=== PATIENT | female | born 1950 | race Caucasian/White ===

== ENCOUNTER 2017-05-02 11:06 | Inpatient (IN) | payer MEDICARE, MEDICAID ==
[~2017-05-02] VITALS: Ht 170.2 cm; Wt 74.1 kg
[2017-05-02] VITALS (11 sets, daily range): BP systolic 111–146; BP diastolic 52–110; PULSE 90–127; RESP 20–32; TEMP 98.1–99.2; O2SAT 90–98
[~2017-05-02 11:06] MED LIST: ADVA250A INH; ALBUAER3 INH; DEPA500T3 PO; ECOT325T PO; ETOD200 PO; FLUT50SP EACH NARE; LEVO50TA4 PO; OMEP20TA93 PO; PALI156P IM; SERT100 PO; SIMV40 PO; TAB-TAB PO
[2017-05-02] MEDS ORDERED: IOHEXOL 350 MG/ML 10 ML VIAL (for RAD DIAG) IVCONTRAST ONE (11:07)
[2017-05-02] MEDS ORDERED: ZOLO100T PO (11:31)
[2017-05-02] MEDS ORDERED: MULTTAB67 PO (11:31)
[2017-05-02] MEDS ORDERED: DEPA500T3 PO (11:31)
[2017-05-02] MEDS ORDERED: ASPI-183 PO (11:31)
[2017-05-02] MEDS ORDERED: SIMV40TA PO (11:31)
[2017-05-02] MEDS ORDERED: SODIUM CHLOR 0.9% 1000 ML INJ 1,000 ML IV SCH (12:00)
[2017-05-02] MEDS ORDERED: SODIUM CHLORIDE 0.9% FLUSH 10 ML FLUSH IVF PRN (12:00)
[2017-05-02] MEDS ORDERED: SODIUM CHLOR 0.9% 1000 ML INJ 1,000 ML IV ONE (12:00)
[2017-05-02] MEDS ORDERED: RESP: ALBUTEROL 2.5 MG/IPRATROPIUM 0.5 MG NEB (SCH) INH ONE (12:00)
[2017-05-02] MEDS: RESP: ALBUTEROL 2.5 MG/3 ML NEB (SCH) INH ×2 (12:00→17:41)
--- NOTE | 2017-05-02 12:27 | RADRPT ---
EXAM DATE/TIME: 05/02/2017 12:04 [facility] COMPARISON: CHEST SINGLE AP, March 13, 2016, 11:52. INDICATIONS : Cough and short of breath. MEDICAL HISTORY : Cardiovascular disease. SURGICAL HISTORY : None. ENCOUNTER: Initial ACUITY: 4 - 6 days PAIN SCORE: 0/10 LOCATION: Bilateral chest FINDINGS: There is some motion artifact on image which degrades the study. There appears to be at least stable chronic interstitial changes bilaterally when compared to the prior examination. No definite focal ar eas of parenchymal consolidation are demonstrated. The heart size is within normal limits. No definit e pleural effusions. The bony structures appear to be stable. CONCLUSION: Stable interstitial changes are again noted bilaterally. No new or significant changes compared to th e prior study. Rishabh Parham MD on May 02, 2017 at 12:24 Board Certified Radiologist. This report was verified electronically.
[2017-05-02 13:03] LABS: AUTOMATED NEUTROPHIL # 13.7 TH/MM3 (1.8-7.7); BASOPHIL % 0.1 % (0.0-2.0); EOSINOPHIL % 0.1 % (0.0-4.0); HEMATOCRIT 29.7 % (35.0-46.0); HEMOGLOBIN 9.8 GM/DL (11.6-15.3); LYMPH % 3.2 % (9.0-44.0); LYMPHOCYTE # 0.5 TH/MM3 (1.0-4.8); MEAN CELL VOLUME 94.5 FL (80.0-100.0); MEAN CORPUSCULAR HEMOGLOBIN 31.1 PG (27.0-34.0); MEAN PLATELET VOLUME 8.9 FL (7.0-11.0); MONO % 5.2 % (0.0-8.0); MONOCYTE # 0.8 TH/MM3 (0-0.9); NEUT % 91.4 % (16.0-70.0); PLATELET COUNT 248 TH/MM3 (150-450); RED BLOOD COUNT 3.15 MIL/MM3 (4.00-5.30); RED CELL DISTRIBUTION WIDTH 15.8 % (11.6-17.2)
[2017-05-02 13:09] LABS: ALKALINE PHOSPHATASE 133 U/L (45-117); TOTAL BILIRUBIN ADULT 1.5 MG/DL (0.2-1.0); TOTAL PROTEIN 7.6 GM/DL (6.4-8.2); TROPONIN I LESS THAN 0.02 NG/ML (0.02-0.05)
[2017-05-02] MEDS ORDERED: IBUPROFEN 600 MG TAB PO ONE (13:15)
[2017-05-02] MEDS ORDERED: guaiFENesin/DEXTROMETHORPHAN 200 MG/20 MG/10 ML CUP PO ONE ×2 (13:15→22:45)
[2017-05-02 13:39] LABS: BLOOD, URINE NEG (NEG); GLUCOSE,URINE NEG (NEG); HYALINE CAST, URINE 6 /lpf (RARE); KETONE, URINE NEG (NEG); NITRITE,URINE NEG (NEG); PH, URINE 5.5 (5.0-8.5); TRANSITIONAL EPI CELLS, URINE <1 /hpf; URINE COLOR YELLOW (YELLW/STRAW); URINE LEUKOCYTE ESTERASE MOD (NEG)
[2017-05-02 13:44] LABS: BILIRUBIN, URINE NEG (NEG)
[2017-05-02 15:11] LABS: ALBUMIN 2.3 GM/DL (3.4-5.0); ALT (GPT) 67 U/L (10-53); AST (GOT) 60 U/L (15-37); BICARBONATE 28.2 MEQ/L (21.0-32.0); BLOOD UREA NITROGEN 23 MG/DL (7-18); CALCIUM 8.7 MG/DL (8.5-10.1); CHLORIDE 102 MEQ/L (98-107); CREATININE 0.73 MG/DL (0.50-1.00); GLOMERULAR FILTRATION RATE 79 ML/MIN (>89); GLUCOSE,RANDOM 133 MG/DL (74-106); SODIUM (NA) 136 MEQ/L (136-145)
[2017-05-02 15:27] LABS: INTERNATIONAL NORMALIZED RATIO 1.2 RATIO; PROTHROMBIN TIME - PATIENT 11.7 SEC (9.8-11.6)
[2017-05-02 15:34] LABS: D-DIMER 2.01 MG/L FEU (0.00-0.50)
--- NOTE | 2017-05-02 16:09 | PD ---
HPI Chief Complaint: Respiratory Symptoms Time Seen by Provider: 11:52 Travel History International Travel<30 days: No Contact w/Intl Traveler<30days: No Traveled to known affect area: No History of Present Illness HPI This is a 66-year-old female history of CVA, COPD, hyperlipidemia, hepatitis, hypothyroidism, who presents today with fevers chills with associated cough. The patient states that she's had 6 a progression of URI symptoms. She reports fevers with chills. She reports severe dyspnea on exertion. She reports despite using her nebulizers, she is progressively gotten worse. The patient also reports loose stools. He denies any dysuria or frequency or urgency. There is questionable decreased urine output. PFSH Past Medical History Anemia: Yes Asthma: Yes Blood Disorders: No Bipolar Disorder: Yes Anxiety: Yes Depression: Yes Cancer: No Cardiovascular Problems: Yes High Cholesterol: Yes Chemotherapy: No Chest Pain: Yes Congestive Heart Failure: No COPD: Yes Cerebrovascular Accident: Yes Diabetes: No Diminished Hearing: No Endocrine: Yes Gastrointestinal Disorders: Yes (IBS) GERD: Yes Genitourinary: No Headaches: Yes Hepatitis: Yes Hiatal Hernia: Yes Immune Disorder: No Medical other: Yes (TIA; ARTHRITIS) Musculoskeletal: Yes (SCOLIOSIS) Neurologic: Yes Psychiatric: Yes Reproductive: No Respiratory: Yes Immunizations Current: No Myocardial Infarction: Yes Pneumonia: Yes Radiation Therapy: No Thyroid Disease: Yes Tetanus Vaccination: < 5 Years Influenza Vaccination: No Past Surgical History Gynecologic Surgery: Yes (BREAST TUMORS AND CYSTS BILATERAL REMOVED, OVARIAN CYSTS REMOVED) Hysterectomy: Yes Oral Surgery: Yes (TONSILECTOMY) Tonsillectomy: Yes Other Surgery: Yes (HYSTER,TUMORS,CYTS,ETC) Family History Family Myocardial Infarction: Yes Social History Alcohol Use: No Tobacco Use: No Substance Use: No Allergies-Medications (Allergen,Severity, Reaction): Coded Allergies: Sulfa (Sulfonamide Antibiotics) (Unverified Allergy, Severe, Nausea/ Vomiting, 05/02/17) pt. denies amitriptyline (Unverified Allergy, Severe, Rash, 05/02/17) clopidogrel (Unverified Allergy, Severe, BRUISE, 05/02/17) haloperidol (Unverified Allergy, Severe, RASH, 05/02/17) penicillin G (Unverified Allergy, Severe, Swelling, 05/02/17) thiothixene (Unverified Allergy, Severe, Rash, 05/02/17) ragweed pollen (Unverified Allergy, Mild, Sneezing, 05/02/17) Uncoded Allergies: QUINIGLUTE (Allergy, Severe, 03/31/11) Reported Meds & Prescriptions Reported Meds & Active Scripts Active Etodolac 200 Mg Cap 200 Mg PO TID Take with food. Proair Hfa 8.5 GM Inh (Albuterol Sulfate) 90 Mcg/Act Aer 2 Puff INH Q4-6H PRN 108 mcg/actuation Advair Diskus Inh (Fluticasone-Salmeterol Inh) 250-50 Mcg/Blist Aer 1 Puff INH BID Rinse mouth after use. Levothyroxine (Levothyroxine Sodium) 50 Mcg Tab 50 Mcg PO DAILY Reported Depakote ER (Divalproex Sodium) 500 Mg Marilee 1,500 Mg PO HS Zoloft (Sertraline HCl) 100 Mg Tab 100 Mg PO DAILY Simvastatin 40 Mg Tab 40 Mg PO HS Multiple Vitamin 1 Tab 1 Tab PO DAILY Aspirin 325 Mg Tab 325 Mg PO DAILY Invega Sustenna Inj (Paliperidone Palmitate) 156 Mg/Ml Inj 156 Mg IM Q28D Omeprazole 20 Mg Tab 40 Mg PO DAILY Fluticasone Nasal [place] 50 Mcg/Act Naspr 100 Mcg EACH NARE BID 50 mcg/spray Review of Systems Except as stated in HPI: all other systems reviewed are Neg General / Constitutional: Positive: Fever, Chills HENT: Positive: Lightheadedness, Congestion, No: Headaches, Sore Throat, Neck Pain Cardiovascular: No: Chest Pain or Discomfort, Palpitations Respiratory: Positive: Cough (black and brown sputum), Shortness of Breath, Wheezing Gastrointestinal: Positive: Diarrhea, No: Nausea, Vomiting, Abdominal Pain Genitourinary: Positive: Decreased Urinary Output, No: Frequency, Dysuria Musculoskeletal: Positive: Weakness (generalized), No: Pain Skin: No Rash, No Lesions Neurologic: Positive: Weakness (generalized), No: Dizziness, Headache Physical Exam Narrative GENERAL: Elderly ill appearing female in moderate respiratory distress. SKIN: Focused skin assessment warm/dry. HEAD: Atraumatic. Normocephalic. EYES: No scleral icterus. No injection or drainage. ENT: No nasal bleeding or discharge. Mucous membranes pink and moist. NECK: Trachea midline. Supple. CARDIOVASCULAR: Regular rate and rhythm. No murmur appreciated. RESPIRATORY: Coarse rhonchi bilaterally. Rales at the bilateral bases. GASTROINTESTINAL: Abdomen soft, non-tender, nondistended. Hepatic and splenic margins not palpable. MUSCULOSKELETAL: No obvious deformities. No clubbing. No cyanosis. No edema. NEUROLOGICAL: Awake and weak appearing. No obvious cranial nerve deficits. Motor grossly within normal limits. Normal speech. PSYCHIATRIC: Appropriate mood and affect; insight and judgment normal. Data Data Last Documented VS Vital Signs Date Time Temp Pulse Resp B/P (MAP) Pulse Ox O2 Delivery O2 Flow Rate FiO2 05/02/17 18:53 98.1 98 28 111/86 (94) 98 Nasal Cannula 4.00 Orders Orders Complete Blood Count With Diff (05/02/17 11:55) Comprehensive Metabolic Panel (05/02/17 11:55) B-Type Natriuretic Peptide (05/02/17 11:55) D-Dimer (05/02/17 11:55) Act Partial Throm Time (Ptt) (05/02/17 11:55) Prothrombin Time / Inr (Pt) (05/02/17 11:55) Troponin I (05/02/17 11:55) Arterial Blood Gas (Abg) (05/02/17 11:55) Urinalysis - C+S If Indicated (05/02/17 11:55) Influenzae A/B Antigen (05/02/17 11:55) Blood Culture (05/02/17 11:55) Iv Access Insert/Monitor (05/02/17 11:55) Ecg Monitoring (05/02/17 11:55) Oximetry (05/02/17 11:55) Oxygen Administration (05/02/17 11:55) Chest, Single Ap (05/02/17 11:55) Sodium Chloride 0.9% Flush (Ns Flush) (05/02/17 12:00) Albuterol-Ipratropium Neb (Duoneb Neb) (05/02/17 12:00) Albuterol Neb (Albuterol Neb) (05/02/17 12:00) Lactic Acid Sepsis Protocol (05/02/17 11:55) Sodium Chlor 0.9% 1000 Ml Inj (Ns 1000 M (05/02/17 12:00) Sodium Chlor 0.9% 1000 Ml Inj (Ns 1000 M (05/02/17 12:00) Guaifen-Dm 200-20 Mg/10 Ml Liq (Robituss (05/02/17 13:15) Ibuprofen (Motrin) (05/02/17 13:15) Electrocardiogram (05/02/17 11:18) Ct Pulmonary Angiogram (05/02/17 16:01) Aztreonam Inj (Azactam Inj) (05/02/17 16:10) Levofloxacin 750 Mg Premix Inj (Levaquin (05/02/17 16:10) Ondansetron Inj (Zofran Inj) (05/02/17 16:30) Iohexol 350 Inj (Omnipaque 350 Inj) (05/02/17 11:07) Labs Laboratory Tests Test 05/02/17 11:55 05/02/17 12:16 05/02/17 12:55 05/02/17 13:55 Blood Gas Puncture Site RT RADIAL Blood Gas Patient Temperature 98.6 Blood Gas HCO3 28 mmol/L Blood Gas Base Excess 4.7 mmol/L Blood Gas Oxygen Saturation 89 % Arterial Blood pH 7.47 Arterial Blood Partial Pressure CO2 40 mmHg Arterial Blood Partial Pressure O2 63 mmHg Arterial Blood Oxygen Content 15.0 Vol % Arterial Blood Carboxyhemoglobin 1.1 % Arterial Blood Methemoglobin 0.5 % Blood Gas Hemoglobin 12.0 G/DL Oxygen Delivery Device NASAL CANNULA Blood Gas Liter Flow 2 L/M White Blood Count 15.0 TH/MM3 Red Blood Count 3.15 MIL/MM3 Hemoglobin 9.8 GM/DL Hematocrit 29.7 % Mean Corpuscular Volume 94.5 FL Mean Corpuscular Hemoglobin 31.1 PG Mean Corpuscular Hemoglobin Concent 33.0 % Red Cell Distribution Width 15.8 % Platelet Count 248 TH/MM3 Mean Platelet Volume 8.9 FL Neutrophils (%) (Auto) 91.4 % Lymphocytes (%) (Auto) 3.2 % Monocytes (%) (Auto) 5.2 % Eosinophils (%) (Auto) 0.1 % Basophils (%) (Auto) 0.1 % Neutrophils # (Auto) 13.7 TH/MM3 Lymphocytes # (Auto) 0.5 TH/MM3 Monocytes # (Auto) 0.8 TH/MM3 Eosinophils # (Auto) 0.0 TH/MM3 Basophils # (Auto) 0.0 TH/MM3 CBC Comment DIFF FINAL Differential Comment Lactic Acid Level 2.0 mmol/L B-Type Natriuretic Peptide 94 PG/ML Urine Color YELLOW Urine Turbidity CLEAR Urine pH 5.5 Urine Specific [place] 1.018 Urine Protein TRACE mg/dL Urine Glucose (UA) NEG mg/dL Urine Ketones NEG mg/dL Urine Occult Blood NEG Urine Nitrite NEG Urine Bilirubin NEG Urine Urobilinogen 8.0 MG/DL Urine Leukocyte Esterase MOD Urine RBC 3 /hpf Urine WBC LESS THAN 1 /hpf Urine Transitional Epithelial Cells <1 /hpf Urine Hyaline Casts 6 /lpf Microscopic Urinalysis Comment CULT NOT INDICATED Prothrombin Time 11.7 SEC Prothromb Time International Ratio 1.2 RATIO Activated Partial Thromboplast Time 28.4 SEC D-Dimer Quantitative (PE/DVT) 2.01 MG/L FEU Blood Urea Nitrogen 23 MG/DL Creatinine 0.73 MG/DL Random Glucose 133 MG/DL Total Protein 7.6 GM/DL Albumin 2.3 GM/DL Calcium Level 8.7 MG/DL Alkaline Phosphatase 133 U/L Aspartate Amino Transf (AST/SGOT) 60 U/L Alanine Aminotransferase (ALT/SGPT) 67 U/L Total Bilirubin 1.5 MG/DL Sodium Level 136 MEQ/L Potassium Level 4.8 MEQ/L Chloride Level 102 MEQ/L Carbon Dioxide Level 28.2 MEQ/L Anion Gap 6 MEQ/L Estimat Glomerular Filtration Rate 79 ML/MIN Troponin I LESS THAN 0.02 NG/ML MDM Medical Decision Making Medical Screen Exam Complete: Yes Emergency Medical Condition: Yes Differential Diagnosis Pneumonia versus influenza versus bronchitis versus pulmonary embolus. Narrative Course 66-year-old female presents with cough fever chills and shortness of breath. The patient has Rales and rhonchi on her lungs bilaterally. White count 15, 000. She is also noted to be anemic. She was started on aztreonam and Levaquin as she is pen allergy. She will be admitted to the hospital under the resident service. The case discussed with the senior resident Dr. Muir. He is agreeable to the plan. Diagnosis Primary Impression: Pneumonia Additional Impressions: Anemia Elevated transaminase level Prerenal azotemia History of COPD Admitting Information Admitting Physician Requests: Admit Yaw Stoll MD May 02, 2017 16:09
[2017-05-02] MEDS ORDERED: AZTREONAM INJ 2,000 MG in SODIUM CHLORIDE 0.9% INJ 100 ML IV STA (16:10)
[2017-05-02] MEDS ORDERED: LEVOFLOXACIN 750 MG PREMIX INJ 150 ML IV STA (16:10)
[2017-05-02] MEDS ORDERED: ONDANSETRON HCL 4 MG/2 ML VIAL IV PUSH ONE (16:30)
--- NOTE | 2017-05-02 18:30 | RADRPT ---
EXAM DATE/TIME: 05/02/2017 18:08 [facility] COMPARISON: CT THORAX W CONTRAST, March 13, 2016, 12:56. INDICATIONS : Short of breath for two weeks, embolism. IV CONTRAST: 70 cc Omnipaque 350 (iohexol) IV RADIATION DOSE: 23.48 CTDIvol (mGy) MEDICAL HISTORY : Cerebrovascular disease. Cardiovascular disease Chronic obstructive pulmonary disease.Hiatal hernia. SURGICAL HISTORY : Hysterectomy. ENCOUNTER: Initial ACUITY: 2 weeks PAIN SCALE: 9/10 LOCATION: Bilateral chest TECHNIQUE: Volumetric scanning of the chest was performed using a pulmonary embolism protocol MIP images were re constructed. Using automated exposure control and adjustment of the mA and/or kV according to patien t size, radiation dose was kept as low as reasonably achievable to obtain optimal diagnostic quality images. DICOM format image data is available electronically for review and comparison. Follow-up recommendations for detected pulmonary nodules are based at a minimum on nodule size and pa tient risk factors according to Fleischner Society Guidelines. FINDINGS: PULMONARY ARTERIES: No filling defects are seen in the pulmonary arteries through the segmental level. LUNGS: Redemonstration of moderate lower lobe predominant centrilobular emphysema. Interval development of i nterstitial prominence and patchy groundglass opacities throughout the lower lobes bilaterally. There is also minimal patchy nodular groundglass opacities in the posterior upper lobes bilaterally. PLEURAE: There is no pleural thickening or pleural effusion. MEDIASTINUM: There are multiple prominent mediastinal and bilateral hilar nodes. Largest node in the subcarinal re gion measures up to 1.7 cm in short axis diameter. MUSCULOSKELETAL: Within normal limits for patient age. MISCELLANEOUS: The visualized upper abdominal organs demonstrate no acute abnormality. CONCLUSION: 1. No evidence for pulmonary artery embolism to the subsegmental level. 2. Moderate lower lobe predominant centrilobular emphysema with interval development of groundglass a nd interstitial opacities most predominantly in the lower lobes. Differential considerations include multilobar pneumonia, aspiration, or atypical infection/atypical edema. 3. New mediastinal and hilar adenopathy. This may be reactive/infectious in etiology. 4. Recommend followup to resolution. Hiram Scott MD on May 02, 2017 at 18:19 Board Certified Radiologist. This report was verified electronically.
--- NOTE | 2017-05-02 18:53 | HHI.HP ---
[facility] Service Family Medicine Primary Care Physician Dashawn Tolliver MD Admission Diagnosis Diagnoses: International Travel<30 Days: No Contact w/Intl Traveler<30days: No Known Affected Area: No History of Present Illness 66-year-old female with history of COPD and psychiatric illness presents complaining of diarrhea and cough 1 week. Patient begins by saying that she has had diarrhea for the past 4 days. She has been through 60 diapers in the last 4 days. She has also had some nausea but no vomiting. She only has abdominal discomfort when she coughs. She denies blood in her stool. She denies black stools. She also states that she has had difficulty breathing for the last "couple of weeks." She has also had subjective fevers with MAXIMUM TEMPERATURE of 99.1 at home. She states that a doctor at [facility] recommended taking Robitussin and nyquil which she has been taking for the past week. Her cough has been productive feeling more fatigued recently. She does not feel well. She denies dysuria. Denies chest pain. She has been having shortness of breath. Review of Systems Constitutional: COMPLAINS OF: Fatigue, DENIES: Chills Eyes: DENIES: Blurred vision, Diplopia Respiratory: COMPLAINS OF: Cough, Sputum production, Shortness of breath Cardiovascular: DENIES: Chest pain, Palpitations, Syncope Gastrointestinal: COMPLAINS OF: Abdominal pain, Diarrhea, Nausea, DENIES: Black stools, Bloody stools, Constipation, Vomiting Integumentary: DENIES: Pruritus, Rash Neurologic: COMPLAINS OF: Headache, DENIES: Abnormal gait, Localized weakness Psychiatric: DENIES: Anxiety, Confusion Past Family Social History Past Medical History COPD Asthma Hypothyroidism Psychiatric illness Fractures- finger, clavicle Past Surgical History Tonsillectomy Hysterectomy Unspecified "tumors on breasts" 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 Proair Hfa 8.5 GM Inh (Albuterol Sulfate) 90 Mcg/Act Aer 2 Puff INH Q4-6H PRN 108 mcg/actuation Advair Diskus Inh (Fluticasone-Salmeterol Inh) 250-50 Mcg/Blist Aer 1 Puff INH BID Rinse mouth after use. Levothyroxine (Levothyroxine Sodium) 50 Mcg Tab 50 Mcg PO DAILY Reported Depakote ER (Divalproex Sodium) 500 Mg Marilee 1,500 Mg PO HS Zoloft (Sertraline HCl) 100 Mg Tab 100 Mg PO DAILY Simvastatin 40 Mg Tab 40 Mg PO HS Multiple Vitamin 1 Tab 1 Tab PO DAILY Aspirin 325 Mg Tab 325 Mg PO DAILY Invega Sustenna Inj (Paliperidone Palmitate) 156 Mg/Ml Inj 156 Mg IM Q28D Omeprazole 20 Mg Tab 40 Mg PO DAILY Fluticasone Nasal [place] 50 Mcg/Act Naspr 100 Mcg EACH NARE BID 50 mcg/spray Allergies: Coded Allergies: Sulfa (Sulfonamide Antibiotics) (Unverified Allergy, Severe, Nausea/ Vomiting, 05/02/17) pt. denies amitriptyline (Unverified Allergy, Severe, Rash, 05/02/17) clopidogrel (Unverified Allergy, Severe, BRUISE, 05/02/17) haloperidol (Unverified Allergy, Severe, RASH, 05/02/17) penicillin G (Unverified Allergy, Severe, Swelling, 05/02/17) thiothixene (Unverified Allergy, Severe, Rash, 05/02/17) ragweed pollen (Unverified Allergy, Mild, Sneezing, 05/02/17) Uncoded Allergies: QUINIGLUTE (Allergy, Severe, 03/31/11) Active Ordered Medications Active Medications Albuterol Sulfate (Albuterol Neb) 2.5 mg Q15M INH Last administered on 17:41; Admin Dose 2.5 MG; Start 05/02/17 at 12:00; Stop 05/02/17 at 12:16 ; Status DC Albuterol/ Ipratropium (Duoneb Neb) 1 ampule ONCE ONCE INH Last administered on 05/02/17 12:00; Admin Dose 1 AMPULE; Start 05/02/17 at 12:00; Stop at 12:01; Status DC Aztreonam 2000 mg/ Sodium Chloride 100 ml @ 200 mls/hr ONCE STAT IV; Start at 16:10; Stop 05/02/17 at 16:39; Status DC Guaifenesin/ Dextromethorphan (Robitussin Dm 200-20 Mg/10 ml Liq) 10 ml ONCE ONCE PO Last administered on 05/02/17 13:50; Admin Dose 10 ML; Start at 13:15; Stop 05/02/17 at 13:16; Status DC Ibuprofen (Motrin) 600 mg ONCE ONCE PO Last administered on 05/02/17 13:24; Admin Dose 600 MG; Start 05/02/17 at 13:15; Stop 05/02/17 at 13:16; Status DC Iohexol (Omnipaque 350 Inj) 70 ml STK-MED ONCE IVCONTRAST Last administered on 05/02/17 11:07; Admin Dose 70 ML; Start 05/02/17 at 11:07; Stop 05/02/17 at 18:09; Status DC Levofloxacin/ Dextrose 150 ml @ 100 mls/hr ONCE STAT IV Last administered on 05/02/17 16:19; Admin Dose 100 MLS/HR; Start 05/02/17 at 16:10; Stop at 17:39; Status DC Ondansetron HCl (Zofran Inj) 4 mg ONCE ONCE IV PUSH Last administered on 16:19; Admin Dose 4 MG; Start 05/02/17 at 16:30; Stop 05/02/17 at 16:31; Status DC Sodium Chloride 1,000 ml @ 100 mls/hr Q10H IV Last administered on 05/02/17 12:27; Admin Dose 100 MLS/HR; Start 05/02/17 at 12:00 Sodium Chloride 1,000 ml @ 999 mls/hr BOLUS ONCE IV Last administered on 05/02 12:27; Admin Dose 999 MLS/HR; Start 05/02/17 at 12:00; Stop 05/02/17 at 13:00; Status DC Sodium Chloride (NS Flush) 2 ml UNSCH PRN IVF; Start 05/02/17 at 12:00 Family History parents ; no reported PMH 2 brothers- , CAD (age unspecified) and unspecified cancer Unspecified DM, CAD, HTN, alcoholism, depression, tuberculosis, kidney disease, and unspecified cancer Social History Patient lives at [facility] at [facility]. . Patient gets assistance from [facility] staff. 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 Patient denies alcohol or tobacco. Physical Exam Vital Signs Vital Signs Date Time Temp Pulse Resp B/P (MAP) Pulse Ox O2 Delivery O2 Flow Rate FiO2 05/02/17 17:31 90 26 111/52 (71) 98 Nasal Cannula 2.00 05/02/17 14:30 16 05/02/17 13:53 116 26 146/110 (122) 94 Nasal Cannula 2.00 05/02/17 13:18 95 Nasal Cannula 3.00 05/02/17 11:31 99.2 118 28 115/58 (77) 90 Room Air 05/02/17 11:30 96 Nasal Cannula 2.00 05/02/17 11:30 32 90 Room Air 05/02/17 11:23 99.2 118 28 115/58 (77) 96 05/02/17 11:11 98.8 127 28 140/77 (98) 91 Room Air Physical Exam GENERAL: Pleasant female, no acute distress. Normal respiratory rate. SKIN: Cool and dry. HEAD: Atraumatic. Normocephalic. No temporal or scalp tenderness. EYES: Pupils equal round and reactive. Extraocular motions intact. No scleral icterus. No injection or drainage. ENT: Nose without bleeding, purulent drainage or septal hematoma. Throat without erythema, tonsillar hypertrophy or exudate. Uvula midline. Airway patent. NECK: Trachea midline. No JVD or lymphadenopathy. Supple, nontender, no meningeal signs. CARDIOVASCULAR: Regular rate and rhythm without murmurs, gallops, or rubs. RESPIRATORY: Coarse rhonchi bilaterally, worse at the bases. GASTROINTESTINAL: Abdomen soft, non-tender, nondistended. No hepato-splenomegaly , or palpable masses. No guarding. MUSCULOSKELETAL: Extremities without clubbing, cyanosis, or edema. No joint tenderness, effusion, or edema noted. No calf tenderness. Negative Homans sign bilaterally. NEUROLOGICAL: Awake and alert. Cranial nerves II through XII intact. Motor and sensory grossly within normal limits. Five out of 5 muscle strength in all muscle groups. Normal speech. Laboratory Laboratory Tests Test 05/02/17 11:55 05/02/17 12:16 05/02/17 12:55 05/02/17 13:55 Blood Gas Puncture Site RT RADIAL Blood Gas Patient Temperature 98.6 Blood Gas HCO3 28 Blood Gas Base Excess 4.7 Blood Gas Oxygen Saturation 89 Arterial Blood pH 7.47 Arterial Blood Partial Pressure CO2 40 Arterial Blood Partial Pressure O2 63 Arterial Blood Oxygen Content 15.0 Arterial Blood Carboxyhemoglobin 1.1 Arterial Blood Methemoglobin 0.5 Blood Gas Hemoglobin 12.0 Oxygen Delivery Device NASAL CANNULA Blood Gas Liter Flow 2 White Blood Count 15.0 Red Blood Count 3.15 Hemoglobin 9.8 Hematocrit 29.7 Mean Corpuscular Volume 94.5 Mean Corpuscular Hemoglobin 31.1 Mean Corpuscular Hemoglobin Concent 33.0 Red Cell Distribution Width 15.8 Platelet Count 248 Mean Platelet Volume 8.9 Neutrophils (%) (Auto) 91.4 Lymphocytes (%) (Auto) 3.2 Monocytes (%) (Auto) 5.2 Eosinophils (%) (Auto) 0.1 Basophils (%) (Auto) 0.1 Neutrophils # (Auto) 13.7 Lymphocytes # (Auto) 0.5 Monocytes # (Auto) 0.8 Eosinophils # (Auto) 0.0 Basophils # (Auto) 0.0 CBC Comment DIFF FINAL Differential Comment Lactic Acid Level 2.0 B-Type Natriuretic Peptide 94 Urine Color YELLOW Urine Turbidity CLEAR Urine pH 5.5 Urine Specific [place] 1.018 Urine Protein TRACE Urine Glucose (UA) NEG Urine Ketones NEG Urine Occult Blood NEG Urine Nitrite NEG Urine Bilirubin NEG Urine Urobilinogen 8.0 Urine Leukocyte Esterase MOD Urine RBC 3 Urine WBC LESS THAN 1 Urine Transitional Epithelial Cells <1 Urine Hyaline Casts 6 Microscopic Urinalysis Comment CULT NOT INDICATED Prothrombin Time 11.7 Prothromb Time International Ratio 1.2 Activated Partial Thromboplast Time 28.4 D-Dimer Quantitative (PE/DVT) 2.01 Blood Urea Nitrogen 23 Creatinine 0.73 Random Glucose 133 Total Protein 7.6 Albumin 2.3 Calcium Level 8.7 Alkaline Phosphatase 133 Aspartate Amino Transf (AST/SGOT) 60 Alanine Aminotransferase (ALT/SGPT) 67 Total Bilirubin 1.5 Sodium Level 136 Potassium Level 4.8 Chloride Level 102 Carbon Dioxide Level 28.2 Anion Gap 6 Estimat Glomerular Filtration Rate 79 Troponin I LESS THAN 0.02 Date/Time Source Procedure Growth Status 05/02/17 12:36 Blood Peripheral Aerobic Blood Culture Pending Received 05/02/17 12:36 Blood Peripheral Anaerobic Blood Culture Pending Received 05/02/17 12:16 Nasal Aspirate Influenza Types A,B Antigen (MARKO) - Final NEGATIVE FOR FLU A AND B ANTIGEN.... Complete Result Diagram: 05/02/17 1216 05/02/[address] Angiography 05/02/17 1601 Signed Impressions: Service Date/Time: Tuesday, May 02, 2017 18:08 - CONCLUSION: 1. No evidence for pulmonary artery embolism to the subsegmental level. 2. Moderate lower lobe predominant centrilobular emphysema with interval development of groundglass and interstitial opacities most predominantly in the lower lobes. Differential considerations include multilobar pneumonia, aspiration, or atypical infection/atypical edema. 3. New mediastinal and hilar adenopathy. This may be reactive/infectious in etiology. 4. Recommend followup to resolution. Hiram Scott MD Chest X-Ray 05/02/17 1155 Signed Impressions: Service Date/Time: Tuesday, May 02, 2017 12:04 - CONCLUSION: Stable interstitial changes are again noted bilaterally. No new or significant changes compared to the prior study. MD Rodrigo Ruano VTE Risk Assessment Caprini VTE Risk Assessment: Mod/High Risk (score >= 2) Caprini Risk Assessment Model Point Value = 1 Point Value = 2 Point Value = 3 Point Value = 5 Age 41-60 Minor surgery BMI > 25 kg/m2 Swollen legs Varicose veins or History of unexplained or recurrent spontaneous Oral contraceptives or hormone replacement Sepsis (< 1 month) Serious lung disease, including pneumonia (< 1 month) Abnormal pulmonary function Acute myocardial infarction Congestive heart failure (< 1 month) History of inflammatory bowel disease Medical patient at bed rest Age 61-74 Arthroscopic surgery Major open surgery (> 45 min) Laparoscopic surgery (> 45 min) Malignancy Confined to bed (> 72 hours) Immobilizing plaster cast Central venous access Age >= 75 History of VTE Family history of VTE Factor V Leiden Prothrombin [id number] Lupus anticoagulant Anticardiolipin antibodies Elevated serum homocysteine Heparin-induced thrombocytopenia Other congenital or acquired thrombophilia Stroke (< 1 month) Elective arthroplasty Hip, pelvis, or leg fracture Acute spinal cord injury (< 1 month) Prophylaxis Regimen Total Risk Factor Score Risk Level Prophylaxis Regimen 0-1 Low Early ambulation 2 Moderate Order ONE of the following: *Sequential Compression Device (SCD) *Heparin 5000 units SQ BID 3-4 Higher Order ONE of the following medications: *Heparin 5000 units SQ TID *Enoxaparin/Lovenox 40 mg SQ daily (WT < 150 kg, CrCl > 30 mL/min) *Enoxaparin/Lovenox 30 mg SQ daily (WT < 150 kg, CrCl > 10-29 mL/min) *Enoxaparin/Lovenox 30 mg SQ BID (WT < 150 kg, CrCl > 30 mL/min) AND/OR *Sequential Compression Device (SCD) 5 or more Highest Order ONE of the following medications: *Heparin 5000 units SQ TID (Preferred with Epidurals) *Enoxaparin/Lovenox 40 mg SQ daily (WT < 150 kg, CrCl > 30 mL/min) *Enoxaparin/Lovenox 30 mg SQ daily (WT < 150 kg, CrCl > 10-29 mL/min) *Enoxaparin/Lovenox 30 mg SQ BID (WT < 150 kg, CrCl > 30 mL/min) AND *Sequential Compression Device (SCD) Assessment and Plan Assessment and Plan 66-year-old female with history of COPD presents with shortness of breath and clinical/radiographic signs of pneumonia/COPD exacerbation. Code Status Full code, however would like further decisions made by power of attorney recruiter Mrs. Andujar him she states lives in [place] Problem List: (1) Sepsis ICD Codes: A41.9 - Sepsis, unspecified organism Status: Acute Plan: Patient meets sepsis criteria with increased respirations, increased pulse, increased white blood cell count, pneumonia clinically and on imaging. Received fluid boluses in the ER. Continue IV fluids 110 mL's per hour Continue broad-spectrum antibiotics aztreonam and Levaquin Blood cultures pending Repeat lab work in the morning (2) COPD exacerbation ICD Codes: J44.1 - COPD exacerbation Status: Acute Plan: CT findings as above. CT findings may need to be repeated per radiology report Clinically improved upon my evaluation In the ER requiring oxygen, may require oxygen upon discharge Antibiotics as above Prednisone 40 mg by mouth daily (3) Psychiatric disorder ICD Codes: F99 - Mental disorder, not otherwise specified Plan: Continue home medications (4) Diarrhea ICD Codes: R19.7 - Diarrhea, unspecified Status: Acute Plan: Given multiple bouts of diarrhea, will check for C. difficile IV fluids as above (5) FEN/PPX Status: Acute Plan: Fluids: Normal saline 110 ML per hour Electrolytes: Monitor and replace as needed Nutrition: Regular diet Prophylaxis: Heparin Problem Qualifiers (1) Diarrhea: Qualified Codes: R19.7 - Diarrhea, unspecified Wood,Arturo G MD, R3 May 02, 2017 18:53
[2017-05-02] MEDS ORDERED: SODIUM CHLORIDE 0.9% FLUSH 10 ML FLUSH IV FLUSH PRN (19:30)
[2017-05-02] MEDS ORDERED: ONDANSETRON HCL 4 MG/2 ML VIAL IVP PRN (20:00)
[2017-05-02] MEDS ORDERED: ACETAMINOPHEN 325 MG TAB PO PRN (20:00)
[2017-05-02] MEDS: RESP: ALBUTEROL 2.5 MG/IPRATROPIUM 0.5 MG NEB (SCH) INH (20:07)
[2017-05-02] MEDS: SODIUM CHLOR 0.9% 1000 ML INJ 1,000 ML IV SCH (20:40)
[2017-05-02] MEDS: HEPARIN SODIUM - SQ 10,000 UNITS/ML VIAL SQ SCH (20:40)
[2017-05-02] MEDS: predniSONE 20 MG TAB PO SCH (20:40)
[2017-05-02] MEDS: SODIUM CHLORIDE 0.9% FLUSH 10 ML FLUSH IV FLUSH SCH (21:00)
[2017-05-02] MEDS: FLUTICASONE PROPIONATE 50 MCG/ACT 16 GM NASAL SPRAY EACH NARE SCH (22:13)
[2017-05-02] MEDS: BUDESONIDE-FORMOTEROL 160/4.5 MCG INHALER INH SCH (22:13)
[2017-05-02] MEDS: DIVALPROEX SODIUM E.R. 500 MG TAB PO SCH (22:13)
[2017-05-02] MEDS ORDERED: ACETAMINOPHEN/HYDROcodone 325 MG/5 MG TAB PO ONE (22:45)
[2017-05-02] MEDS: MENTHOL LOZENGE BUCCAL PRN (23:32)
[2017-05-03] VITALS (9 sets, daily range): BP systolic 105–134; BP diastolic 51–61; PULSE 85–97; RESP 16–24; TEMP 98–98.4; O2SAT 95–99
[2017-05-03] MEDS: RESP: ALBUTEROL 2.5 MG/IPRATROPIUM 0.5 MG NEB (SCH) INH ×6 (00:59→20:40)
[2017-05-03] MEDS: MENTHOL LOZENGE BUCCAL PRN ×3 (03:06→09:12)
[2017-05-03] MEDS: LEVOTHYROXINE SODIUM 50 MCG TAB PO SCH (06:07)
[2017-05-03] MEDS: SODIUM CHLOR 0.9% 1000 ML INJ 1,000 ML IV SCH ×3 (06:13→21:43)
[2017-05-03 06:51] LABS: ALBUMIN 2.1 GM/DL (3.4-5.0); ALKALINE PHOSPHATASE 96 U/L (45-117); ALT (GPT) 55 U/L (10-53); AST (GOT) 25 U/L (15-37); BICARBONATE 26.5 MEQ/L (21.0-32.0); BLOOD UREA NITROGEN 12 MG/DL (7-18); CALCIUM 9.1 MG/DL (8.5-10.1); CHLORIDE 105 MEQ/L (98-107); CREATININE 0.68 MG/DL (0.50-1.00); GLOMERULAR FILTRATION RATE 86 ML/MIN (>89); GLUCOSE,RANDOM 164 MG/DL (74-106); SODIUM (NA) 141 MEQ/L (136-145); TOTAL BILIRUBIN ADULT 0.5 MG/DL (0.2-1.0); TOTAL PROTEIN 6.3 GM/DL (6.4-8.2)
[2017-05-03 06:57] LABS: BASOPHIL % 0.2 % (0.0-2.0); HEMATOCRIT 31.4 % (35.0-46.0); HEMOGLOBIN 10.5 GM/DL (11.6-15.3); LYMPHOCYTE # 0.5 TH/MM3 (1.0-4.8); MEAN CELL VOLUME 94.8 FL (80.0-100.0); MEAN CORPUSCULAR HEMOGLOBIN 31.7 PG (27.0-34.0); MEAN CORPUSCULAR HGB CONC 33.4 % (32.0-36.0); MEAN PLATELET VOLUME 8.2 FL (7.0-11.0); MONO % 3.1 % (0.0-8.0); MONOCYTE # 0.3 TH/MM3 (0-0.9); NEUT % 90.7 % (16.0-70.0); PLATELET COUNT 163 TH/MM3 (150-450); RED BLOOD COUNT 3.31 MIL/MM3 (4.00-5.30); WHITE BLOOD COUNT 8.8 TH/MM3 (4.0-11.0)
[2017-05-03] MEDS ORDERED: ASPIRIN 325 MG TAB PO SCH (09:00)
[2017-05-03] MEDS: ETODOLAC 300 MG PO SCH ×2 (09:10→18:11)
[2017-05-03] MEDS: SERTRALINE HCL 100 MG TAB PO SCH (09:10)
[2017-05-03] MEDS: HEPARIN SODIUM - SQ 10,000 UNITS/ML VIAL SQ SCH ×2 (09:11→21:42)
[2017-05-03] MEDS: predniSONE 20 MG TAB PO SCH (09:11)
[2017-05-03] MEDS: SODIUM CHLORIDE 0.9% FLUSH 10 ML FLUSH IV FLUSH SCH ×2 (09:11→21:00)
[2017-05-03] MEDS: PANTOPRAZOLE SOD 40 MG DELAYED RELEASE TAB PO SCH (09:11)
[2017-05-03] MEDS: AZTREONAM INJ 1,000 MG in SODIUM CHLORIDE 0.9% INJ 100 ML IV SCH ×2 (09:12→21:40)
[2017-05-03] MEDS: FLUTICASONE PROPIONATE 50 MCG/ACT 16 GM NASAL SPRAY EACH NARE SCH ×2 (09:13→21:41)
[2017-05-03] MEDS: BUDESONIDE-FORMOTEROL 160/4.5 MCG INHALER INH SCH ×2 (09:13→21:41)
[2017-05-03] MEDS ORDERED: LEVOFLOXACIN 750 MG TAB PO SCH (10:00)
--- NOTE | 2017-05-03 11:53 | HHI.HP ---
[facility] Service Family Medicine Primary Care Physician Dashawn Tolliver MD Admission Diagnosis Diagnoses: (1) Sepsis Diagnosis: Principal (2) COPD exacerbation Diagnosis: Principal (3) Psychiatric disorder Diagnosis: Principal (4) Diarrhea Diagnosis: Principal (5) FEN/PPX Diagnosis: Principal International Travel<30 Days: No Contact w/Intl Traveler<30days: No Known Affected Area: No History of Present Illness Ms Aceves is a 66-year-old female with history of COPD/asthma as a child and psychiatric illness who presented complaining of diarrhea and cough 1 week. Patient has had diarrhea for the past 4 days. She has been through 60 diapers in the last 4 days. She has also had some nausea but no vomiting. She only has abdominal discomfort when she coughs. She denies blood in her stool. She denies black stools. She also states that she has had difficulty breathing for the last "couple of weeks." She has also had subjective fevers with MAXIMUM TEMPERATURE of 99.1 at home. She states that a doctor at [facility] recommended taking Robitussin and nyquil which she has been taking for the past week. Her cough has been productive feeling more fatigued recently. She does not feel well. She denies dysuria. Denies chest pain. She has been having shortness of breath. She reports she quit smoking cigarettes back in the 80s more than 30 years ago. She states she had asthma as a child and that her advair is the med that helps her the most. Review of Systems Other Constitutional: COMPLAINS OF: Fatigue, DENIES: Chills Eyes: DENIES: Blurred vision, Diplopia Respiratory: COMPLAINS OF: Cough, Sputum production, Shortness of breath Cardiovascular: DENIES: Chest pain, Palpitations, Syncope Gastrointestinal: COMPLAINS OF: Abdominal pain, Diarrhea, Nausea, DENIES: Black stools, Bloody stools, Constipation, Vomiting Integumentary: DENIES: Pruritus, Rash Neurologic: COMPLAINS OF: Headache, DENIES: Abnormal gait, Localized weakness Psychiatric: DENIES: Anxiety, Confusion Past Family Social History Past Medical History COPD Asthma Hypothyroidism Psychiatric illness Fractures- finger, clavicle Past Surgical History Tonsillectomy Hysterectomy Unspecified "tumors on breasts" 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 Reported Medications Albuterol Sulfate (Albuterol Neb) 2.5 mg Q15M INH Last administered on 17:41; Admin Dose 2.5 MG; Start 05/02/17 at 12:00; Stop 05/02/17 at 12:16 ; Status DC Albuterol/ Ipratropium (Duoneb Neb) 1 ampule ONCE ONCE INH Last administered on 05/02/17 12:00; Admin Dose 1 AMPULE; Start 05/02/17 at 12:00; Stop at 12:01; Status DC Aztreonam 2000 mg/ Sodium Chloride 100 ml @ 200 mls/hr ONCE STAT IV; Start at 16:10; Stop 05/02/17 at 16:39; Status DC Guaifenesin/ Dextromethorphan (Robitussin Dm 200-20 Mg/10 ml Liq) 10 ml ONCE ONCE PO Last administered on 05/02/17 13:50; Admin Dose 10 ML; Start at 13:15; Stop 05/02/17 at 13:16; Status DC Ibuprofen (Motrin) 600 mg ONCE ONCE PO Last administered on 05/02/17 13:24; Admin Dose 600 MG; Start 05/02/17 at 13:15; Stop 05/02/17 at 13:16; Status DC Iohexol (Omnipaque 350 Inj) 70 ml STK-MED ONCE IVCONTRAST Last administered on 05/02/17 11:07; Admin Dose 70 ML; Start 05/02/17 at 11:07; Stop 05/02/17 at 18:09; Status DC Levofloxacin/ Dextrose 150 ml @ 100 mls/hr ONCE STAT IV Last administered on 05/02/17 16:19; Admin Dose 100 MLS/HR; Start 05/02/17 at 16:10; Stop at 17:39; Status DC Ondansetron HCl (Zofran Inj) 4 mg ONCE ONCE IV PUSH Last administered on 16:19; Admin Dose 4 MG; Start 05/02/17 at 16:30; Stop 05/02/17 at 16:31; Status DC Sodium Chloride 1,000 ml @ 100 mls/hr Q10H IV Last administered on 05/02/17 12:27; Admin Dose 100 MLS/HR; Start 05/02/17 at 12:00 Sodium Chloride 1,000 ml @ 999 mls/hr BOLUS ONCE IV Last administered on 05/02t 12:27; Admin Dose 999 MLS/HR; Start 05/02/17 at 12:00; Stop 05/02/17 at 13:00; Status DC Sodium Chloride (NS Flush) 2 ml UNSCH PRN IVF; Start 05/02/17 at 12:00 Allergies: Coded Allergies: Sulfa (Sulfonamide Antibiotics) (Unverified Allergy, Severe, Nausea/ Vomiting, 05/02/17) pt. denies amitriptyline (Unverified Allergy, Severe, Rash, 05/02/17) clopidogrel (Unverified Allergy, Severe, BRUISE, 05/02/17) haloperidol (Unverified Allergy, Severe, RASH, 05/02/17) penicillin G (Unverified Allergy, Severe, Swelling, 05/02/17) thiothixene (Unverified Allergy, Severe, Rash, 05/02/17) ragweed pollen (Unverified Allergy, Mild, Sneezing, 05/02/17) Uncoded Allergies: QUINIGLUTE (Allergy, Severe, 03/31/11) Family History parents ; mother had renal failure and CHF 2 brothers- , CAD (age unspecified) and unspecified cancer one sister living in [place] who is alive and her POA if needed Unspecified DM, CAD, HTN, alcoholism, depression, tuberculosis, kidney disease, and unspecified cancer Social History Patient lives at [facility] at [facility]. . Patient gets assistance from [facility] staff. 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 Patient denies alcohol or tobacco. Physical Exam Vital Signs Vital Signs Date Time Temp Pulse Resp B/P (MAP) Pulse Ox O2 Delivery O2 Flow Rate FiO2 05/03/17 08:00 98.1 93 16 109/55 (73) 99 05/03/17 07:47 98 Nasal Cannula 3.00 05/03/17 04:00 98.4 97 24 130/60 (83) 96 05/03/17 01:03 97 Nasal Cannula 3.00 05/03/17 00:00 98.3 97 22 120/58 (78) 97 05/02/17 21:30 98.2 109 28 131/60 (83) 97 05/02/17 20:53 05/02/17 20:52 94 20 121/74 (90) 94 Nasal Cannula 2.00 05/02/17 20:04 98 Nasal Cannula 2.00 05/02/17 18:53 98.1 98 28 111/86 (94) 98 Nasal Cannula 4.00 05/02/17 17:31 90 26 111/52 (71) 98 Nasal Cannula 2.00 05/02/17 14:30 16 05/02/17 13:53 116 26 146/110 (122) 94 Nasal Cannula 2.00 05/02/17 13:18 95 Nasal Cannula 3.00 Physical Exam GENERAL: Pleasant female, no acute distress. Normal respiratory rate. talking comfortably while resting in bed with occasional cough SKIN: Cool and dry. HEAD: Atraumatic. Normocephalic. EYES: Pupils equal round and reactive. Extraocular motions intact. No scleral icterus. No injection or drainage. ENT: Nose without bleeding, purulent drainage or septal hematoma. Airway patent. NECK: Trachea midline. No JVD or lymphadenopathy. Supple, nontender, no meningeal signs. CARDIOVASCULAR: Regular rate and rhythm without murmurs, gallops, or rubs. RESPIRATORY: Coarse rhonchi/wheezes bilaterally, worse at the bases. GASTROINTESTINAL: Abdomen soft, non-tender, nondistended. No hepato-splenomegaly , or palpable masses. No guarding. MUSCULOSKELETAL: Extremities without clubbing, cyanosis, or edema. No joint tenderness, effusion, or edema noted. No calf tenderness. Negative Homans sign bilaterally. NEUROLOGICAL: Awake and alert. Cranial nerves II through XII intact. Motor and sensory grossly within normal limits. Five out of 5 muscle strength in all muscle groups. Normal speech. Laboratory Laboratory Tests Test 05/02/17 11:55 05/02/17 12:16 05/02/17 12:55 05/02/17 13:55 Blood Gas Puncture Site RT RADIAL Blood Gas Patient Temperature 98.6 Blood Gas HCO3 28 Blood Gas Base Excess 4.7 Blood Gas Oxygen Saturation 89 Arterial Blood pH 7.47 Arterial Blood Partial Pressure CO2 40 Arterial Blood Partial Pressure O2 63 Arterial Blood Oxygen Content 15.0 Arterial Blood Carboxyhemoglobin 1.1 Arterial Blood Methemoglobin 0.5 Blood Gas Hemoglobin 12.0 Oxygen Delivery Device NASAL CANNULA Blood Gas Liter Flow 2 White Blood Count 15.0 Red Blood Count 3.15 Hemoglobin 9.8 Hematocrit 29.7 Mean Corpuscular Volume 94.5 Mean Corpuscular Hemoglobin 31.1 Mean Corpuscular Hemoglobin Concent 33.0 Red Cell Distribution Width 15.8 Platelet Count 248 Mean Platelet Volume 8.9 Neutrophils (%) (Auto) 91.4 Lymphocytes (%) (Auto) 3.2 Monocytes (%) (Auto) 5.2 Eosinophils (%) (Auto) 0.1 Basophils (%) (Auto) 0.1 Neutrophils # (Auto) 13.7 Lymphocytes # (Auto) 0.5 Monocytes # (Auto) 0.8 Eosinophils # (Auto) 0.0 Basophils # (Auto) 0.0 CBC Comment DIFF FINAL Differential Comment Hematology Comments Lactic Acid Level 2.0 B-Type Natriuretic Peptide 94 Urine Color YELLOW Urine Turbidity CLEAR Urine pH 5.5 Urine Specific Ramsey 1.018 Urine Protein TRACE Urine Glucose (UA) NEG Urine Ketones NEG Urine Occult Blood NEG Urine Nitrite NEG Urine Bilirubin NEG Urine Urobilinogen 8.0 Urine Leukocyte Esterase MOD Urine RBC 3 Urine WBC LESS THAN 1 Urine Transitional Epithelial Cells <1 Urine Hyaline Casts 6 Microscopic Urinalysis Comment CULT NOT INDICATED Prothrombin Time 11.7 Prothromb Time International Ratio 1.2 Activated Partial Thromboplast Time 28.4 D-Dimer Quantitative (PE/DVT) 2.01 Blood Urea Nitrogen 23 Creatinine 0.73 Random Glucose 133 Total Protein 7.6 Albumin 2.3 Calcium Level 8.7 Alkaline Phosphatase 133 Aspartate Amino Transf (AST/SGOT) 60 Alanine Aminotransferase (ALT/SGPT) 67 Total Bilirubin 1.5 Sodium Level 136 Potassium Level 4.8 Chloride Level 102 Carbon Dioxide Level 28.2 Anion Gap 6 Estimat Glomerular Filtration Rate 79 Troponin I LESS THAN 0.02 Test 05/03/17 05:51 05/03/17 06:07 Blood Urea Nitrogen 12 Creatinine 0.68 Random Glucose 164 Total Protein 6.3 Albumin 2.1 Calcium Level 9.1 Alkaline Phosphatase 96 Aspartate Amino Transf (AST/SGOT) 25 Alanine Aminotransferase (ALT/SGPT) 55 Total Bilirubin 0.5 Sodium Level 141 Potassium Level 4.5 Chloride Level 105 Carbon Dioxide Level 26.5 Anion Gap 10 Estimat Glomerular Filtration Rate 86 White Blood Count 8.8 Red Blood Count 3.31 Hemoglobin 10.5 Hematocrit 31.4 Mean Corpuscular Volume 94.8 Mean Corpuscular Hemoglobin 31.7 Mean Corpuscular Hemoglobin Concent 33.4 Red Cell Distribution Width 16.0 Platelet Count 163 Mean Platelet Volume 8.2 Neutrophils (%) (Auto) 90.7 Lymphocytes (%) (Auto) 6.0 Monocytes (%) (Auto) 3.1 Eosinophils (%) (Auto) 0.0 Basophils (%) (Auto) 0.2 Neutrophils # (Auto) 8.0 Lymphocytes # (Auto) 0.5 Monocytes # (Auto) 0.3 Eosinophils # (Auto) 0.0 Basophils # (Auto) 0.0 CBC Comment DIFF FINAL Differential Comment Hematology Comments Lactic Acid Level 1.8 Date/Time Source Procedure Growth Status 05/02/17 12:36 Blood Peripheral Aerobic Blood Culture - Preliminary NO GROWTH IN 1 DAY Resulted 05/02/17 12:36 Blood Peripheral Anaerobic Blood Culture - Preliminary NO GROWTH IN 1 DAY Resulted 05/02/17 12:16 Nasal Aspirate Influenza Types A,B Antigen (MARKO) - Final NEGATIVE FOR FLU A AND B ANTIGEN.... Complete Result Diagram: 05/03/17 0607 05/03/17 [address] Angiography 05/02/17 1601 Signed Impressions: Service Date/Time: Tuesday, May 02, 2017 18:08 - CONCLUSION: 1. No evidence for pulmonary artery embolism to the subsegmental level. 2. Moderate lower lobe predominant centrilobular emphysema with interval development of groundglass and interstitial opacities most predominantly in the lower lobes. Differential considerations include multilobar pneumonia, aspiration, or atypical infection/atypical edema. 3. New mediastinal and hilar adenopathy. This may be reactive/infectious in etiology. 4. Recommend followup to resolution. Hiram Scott MD Chest X-Ray 05/02/17 1155 Signed Impressions: Service Date/Time: Tuesday, May 02, 2017 12:04 - CONCLUSION: Stable interstitial changes are again noted bilaterally. No new or significant changes compared to the prior study. MD Rodrigo Ruano VTE Risk Assessment Caprini VTE Risk Assessment: Mod/High Risk (score >= 2) Caprini Risk Assessment Model Point Value = 1 Point Value = 2 Point Value = 3 Point Value = 5 Age 41-60 Minor surgery BMI > 25 kg/m2 Swollen legs Varicose veins or History of unexplained or recurrent spontaneous Oral contraceptives or hormone replacement Sepsis (< 1 month) Serious lung disease, including pneumonia (< 1 month) Abnormal pulmonary function Acute myocardial infarction Congestive heart failure (< 1 month) History of inflammatory bowel disease Medical patient at bed rest Age 61-74 Arthroscopic surgery Major open surgery (> 45 min) Laparoscopic surgery (> 45 min) Malignancy Confined to bed (> 72 hours) Immobilizing plaster cast Central venous access Age >= 75 History of VTE Family history of VTE Factor V Leiden Prothrombin [id number] Lupus anticoagulant Anticardiolipin antibodies Elevated serum homocysteine Heparin-induced thrombocytopenia Other congenital or acquired thrombophilia Stroke (< 1 month) Elective arthroplasty Hip, pelvis, or leg fracture Acute spinal cord injury (< 1 month) Prophylaxis Regimen Total Risk Factor Score Risk Level Prophylaxis Regimen 0-1 Low Early ambulation 2 Moderate Order ONE of the following: *Sequential Compression Device (SCD) *Heparin 5000 units SQ BID 3-4 Higher Order ONE of the following medications: *Heparin 5000 units SQ TID *Enoxaparin/Lovenox 40 mg SQ daily (WT < 150 kg, CrCl > 30 mL/min) *Enoxaparin/Lovenox 30 mg SQ daily (WT < 150 kg, CrCl > 10-29 mL/min) *Enoxaparin/Lovenox 30 mg SQ BID (WT < 150 kg, CrCl > 30 mL/min) AND/OR *Sequential Compression Device (SCD) 5 or more Highest Order ONE of the following medications: *Heparin 5000 units SQ TID (Preferred with Epidurals) *Enoxaparin/Lovenox 40 mg SQ daily (WT < 150 kg, CrCl > 30 mL/min) *Enoxaparin/Lovenox 30 mg SQ daily (WT < 150 kg, CrCl > 10-29 mL/min) *Enoxaparin/Lovenox 30 mg SQ BID (WT < 150 kg, CrCl > 30 mL/min) AND *Sequential Compression Device (SCD) Assessment and Plan Assessment and Plan 66-year-old female with history of COPD/asthma presents with shortness of breath and clinical/radiographic signs of pneumonia/COPD exacerbation. Problem List: (1) Sepsis ICD Codes: A41.9 - Sepsis, unspecified organism Status: Acute Plan: Patient meets sepsis criteria with increased respirations, increased pulse, increased white blood cell count, pneumonia clinically and on imaging. Received fluid boluses in the ER. Continue IV fluids 110 mL's per hour Continue broad-spectrum antibiotics aztreonam and Levaquin with her multiple allergies Blood cultures pending Repeat lab work in the morning (2) COPD exacerbation ICD Codes: J44.1 - COPD exacerbation Status: Acute Plan: CT findings as above. CT findings may need to be repeated per radiology report Clinically improved upon my evaluation In the ER requiring oxygen, may require oxygen upon discharge Antibiotics as above Prednisone 40 mg by mouth daily (3) Psychiatric disorder ICD Codes: F99 - Mental disorder, not otherwise specified Status: Chronic Plan: Continue home medications she reports that [facility] and others from [facility] [place] visit her regularly and help her as an outpt (4) Diarrhea ICD Codes: R19.7 - Diarrhea, unspecified Status: Acute Plan: Given multiple bouts of diarrhea, will check for C. difficile IV fluids as above not complaining about diarrhea as much now (5) FEN/PPX Status: Acute Plan: Fluids: Normal saline 110 ML per hour Electrolytes: Monitor and replace as needed Nutrition: Regular diet Prophylaxis: Heparin Problem Qualifiers (1) Sepsis: Qualified Codes: A41.9 - Sepsis, unspecified organism (2) Diarrhea: Qualified Codes: R19.7 - Diarrhea, unspecified Mary Wilks MD May 03, 2017 11:53
[2017-05-03] MEDS: LEVOFLOXACIN 750 MG PREMIX INJ 150 ML IV SCH (12:25)
[2017-05-03] MEDS: methylPREDNISolone SOD SUCC 40 MG/1 ML VIAL IV PUSH SCH (21:42)
[2017-05-03] MEDS: DIVALPROEX SODIUM E.R. 500 MG TAB PO SCH (21:43)
--- NOTE | 2017-05-03 23:36 | EKG ---
Date Performed: 05/02/2017 Time Performed: 11:18:54 PTAGE: 66 years EKG: SINUS TACHYCARDIA WITH SHORT [place] INTERVAL MODERATE ST DEPRESSION ABNORMAL ECG NO PREVIOUS TRACING DOCTOR: Mert Mcknight Interpretating Date/Time 05/03/2017 23:34:41
[2017-05-04] VITALS (10 sets, daily range): BP systolic 124–138; BP diastolic 56–72; PULSE 78–104; RESP 18–23; TEMP 97.5–98.1; O2SAT 93–99
[2017-05-04] MEDS: RESP: ALBUTEROL 2.5 MG/IPRATROPIUM 0.5 MG NEB (SCH) INH ×6 (00:34→20:15)
[2017-05-04] MEDS: MENTHOL LOZENGE BUCCAL PRN ×3 (01:30→16:19)
[2017-05-04] MEDS: LEVOTHYROXINE SODIUM 50 MCG TAB PO SCH (06:06)
[2017-05-04] MEDS: SODIUM CHLOR 0.9% 1000 ML INJ 1,000 ML IV SCH ×2 (06:06→16:15)
[2017-05-04 07:29] LABS: ALBUMIN 2.1 GM/DL (3.4-5.0); ALT (GPT) 40 U/L (10-53); AST (GOT) 13 U/L (15-37); BICARBONATE 29.4 MEQ/L (21.0-32.0); BLOOD UREA NITROGEN 12 MG/DL (7-18); CALCIUM 9.8 MG/DL (8.5-10.1); CHLORIDE 109 MEQ/L (98-107); GLOMERULAR FILTRATION RATE 99 ML/MIN (>89); GLUCOSE,RANDOM 136 MG/DL (74-106); SODIUM (NA) 145 MEQ/L (136-145)
[2017-05-04 07:32] LABS: ALKALINE PHOSPHATASE 94 U/L (45-117); TOTAL BILIRUBIN ADULT 0.3 MG/DL (0.2-1.0); TOTAL PROTEIN 6.1 GM/DL (6.4-8.2)
[2017-05-04] MEDS: HEPARIN SODIUM - SQ 10,000 UNITS/ML VIAL SQ SCH ×2 (07:50→20:56)
[2017-05-04] MEDS: FLUTICASONE PROPIONATE 50 MCG/ACT 16 GM NASAL SPRAY EACH NARE SCH ×2 (07:50→20:56)
[2017-05-04] MEDS: BUDESONIDE-FORMOTEROL 160/4.5 MCG INHALER INH SCH ×2 (07:50→20:56)
[2017-05-04] MEDS: SERTRALINE HCL 100 MG TAB PO SCH (07:51)
[2017-05-04] MEDS: LEVOFLOXACIN 750 MG PREMIX INJ 150 ML IV SCH (07:51)
[2017-05-04] MEDS: SODIUM CHLORIDE 0.9% FLUSH 10 ML FLUSH IV FLUSH SCH ×2 (07:51→20:56)
[2017-05-04] MEDS: methylPREDNISolone SOD SUCC 40 MG/1 ML VIAL IV PUSH SCH ×2 (07:51→20:55)
[2017-05-04] MEDS: ETODOLAC 300 MG PO SCH ×2 (07:52→16:15)
[2017-05-04] MEDS: AZTREONAM INJ 1,000 MG in SODIUM CHLORIDE 0.9% INJ 100 ML IV SCH ×2 (07:52→20:54)
[2017-05-04] MEDS: PANTOPRAZOLE SOD 40 MG DELAYED RELEASE TAB PO SCH (07:52)
[2017-05-04 08:01] LABS: AUTOMATED NEUTROPHIL # 10.1 TH/MM3 (1.8-7.7); BASOPHIL % 0.2 % (0.0-2.0); HEMATOCRIT 23.1 % (35.0-46.0); HEMOGLOBIN 7.8 GM/DL (11.6-15.3); LYMPH % 8.4 % (9.0-44.0); MEAN CELL VOLUME 95.8 FL (80.0-100.0); MEAN CORPUSCULAR HEMOGLOBIN 32.5 PG (27.0-34.0); MEAN PLATELET VOLUME 8.2 FL (7.0-11.0); MONOCYTE # 0.3 TH/MM3 (0-0.9); NEUT % 88.4 % (16.0-70.0); PLATELET COUNT 236 TH/MM3 (150-450); RED BLOOD COUNT 2.41 MIL/MM3 (4.00-5.30); RED CELL DISTRIBUTION WIDTH 16.2 % (11.6-17.2); WHITE BLOOD COUNT 11.4 TH/MM3 (4.0-11.0)
[2017-05-04] MEDS ORDERED: PNEUMOCOCCAL POLYVALENT INJ 25 MCG/0.5 ML SYR IM ONE (10:00)
[2017-05-04] MEDS ORDERED: INFLUENZA VIRUS VACCINE (QUADRIVALENT) 0.5 ML SYR IM ONE (10:00)
--- NOTE | 2017-05-04 13:55 | HHI.FPPN ---
Subjective Remarks Saw and examined patient this morning. Pt states that she had chills last night , but no fever. She feels like her breathing is erratic and fast. Her diarrhea is improved as she only went to have a BM a few times yesterday. Her appetite has also improved. (Mary Ellen Beasley MD R1) Objective Vitals Vital Signs Date Time Temp Pulse Resp B/P (MAP) Pulse Ox O2 Delivery O2 Flow Rate FiO2 05/04/17 11:37 97.5 81 20 134/61 (85) 99 05/04/17 08:52 97 Nasal Cannula 3.00 05/04/17 07:47 97.7 79 18 129/60 (83) 98 05/04/17 04:00 98.1 104 18 138/72 (94) 97 05/04/17 03:44 98 Nasal Cannula 3.00 05/04/17 00:35 97 3.00 05/04/17 00:00 98.0 89 18 124/58 (80) 96 05/03/17 20:45 97 Nasal Cannula 3.00 05/03/17 20:00 98.2 94 18 105/51 (69) 98 05/03/17 16:00 98.0 85 16 128/59 (82) 97 I/O 05/03/17 05/03/17 05/03/17 05/04/17 05/04/17 05/04/17 07:00 15:00 23:00 07:00 15:00 23:00 Intake Total 1350 ml 470 ml 880 ml Balance 1350 ml 470 ml 880 ml IV Total 1350 ml 470 ml 880 ml # Voids 4 3 2 # Bowel Movements 0 1 1 (Mary Ellen Beasley MD R1) Result Diagram: 05/04/17 0514 05/04/17 [address] Angiography 05/02/17 1601 Signed Impressions: Service Date/Time: Tuesday, May 02, 2017 18:08 - CONCLUSION: 1. No evidence for pulmonary artery embolism to the subsegmental level. 2. Moderate lower lobe predominant centrilobular emphysema with interval development of groundglass and interstitial opacities most predominantly in the lower lobes. Differential considerations include multilobar pneumonia, aspiration, or atypical infection/atypical edema. 3. New mediastinal and hilar adenopathy. This may be reactive/infectious in etiology. 4. Recommend followup to resolution. Hiram Scott MD Chest X-Ray 05/02/17 1155 Signed Impressions: Service Date/Time: Tuesday, May 02, 2017 12:04 - CONCLUSION: Stable interstitial changes are again noted bilaterally. No new or significant changes compared to the prior study. Rishabh Parham MD Objective Remarks GENERAL: Well-nourished, well-developed white female elderly patient sitting in bed, NAD. SKIN: Warm and dry. HEAD: Normocephalic. EYES: No scleral icterus. No injection or drainage. NECK: Supple, trachea midline. No JVD or lymphadenopathy. CARDIOVASCULAR: Regular rate and rhythm without murmurs, gallops, or rubs. RESPIRATORY: Breath sounds equal bilaterally. No accessory muscle use. Diffuse wheezes improved from yesterday. GASTROINTESTINAL: Abdomen soft, non-tender, nondistended. EXTREMITIES: No cyanosis, or edema. NEUROLOGICAL: Awake, alert, and oriented x 3. Non-focal. (Mary Ellen Beasley MD R1) A/P Assessment and Plan 66-year-old female with history of COPD/asthma presents with shortness of breath and clinical/radiographic signs of pneumonia/COPD exacerbation. (Mary Ellen Beasley MD R1) Attending Attestation Patient seen and examined. Case reviewed and discussed with the resident team. Agree with plan of care as discussed with me and documented in the resident note. she is taking awhile to improve as her lung disease was poor when she came to the hospital.sometimes it just takes time (Mary Wilks MD) Problem List: (1) Sepsis ICD Codes: A41.9 - Sepsis, unspecified organism Status: Resolved Plan: Patient meets sepsis criteria with increased respirations, increased pulse, increased white blood cell count, pneumonia clinically and on imaging. * Received fluid boluses in the ER. * Continue IV fluids 110 mL's per hour * Continue broad-spectrum antibiotics aztreonam and Levaquin due to her multiple allergies * Blood cultures NGx2 days * Legionella and Strep pneum antigen testing pending (2) COPD exacerbation ICD Codes: J44.1 - COPD exacerbation Status: Acute Plan: CT findings as above. * CT findings may need to be repeated per radiology report * Clinically improved upon my evaluation * In the ER requiring oxygen, may require oxygen upon discharge * Antibiotics as above * Solumedrol 40mg IV q12h (3) Psychiatric disorder ICD Codes: F99 - Mental disorder, not otherwise specified Status: Chronic Plan: Continue home medications she reports that [facility] and others from [facility] visit her regularly and help her as an outpt (4) Diarrhea ICD Codes: R19.7 - Diarrhea, unspecified Status: Resolved Plan: Pt reports that diarrhea has improved * C. difficile test pending, will check given multiple bouts of diarrhea * IV fluids as above (5) FEN/PPX Status: Acute Plan: Fluids: Normal saline 110 ML per hour Electrolytes: Monitor and replace as needed Nutrition: Regular diet Prophylaxis: Heparin (Mary Ellen Beasley MD R1) Problem Qualifiers (1) Sepsis: Qualified Codes: A41.9 - Sepsis, unspecified organism (2) Diarrhea: Qualified Codes: R19.7 - Diarrhea, unspecified Mary Ellen Beasley MD R1 May 04, 2017 13:55 Mary Wilks MD May 08, 2017 16:22
[2017-05-04] MEDS: DIVALPROEX SODIUM E.R. 500 MG TAB PO SCH (20:55)
[2017-05-05] VITALS (8 sets, daily range): BP systolic 115–146; BP diastolic 53–72; PULSE 80–101; RESP 20–24; TEMP 97.2–98.1; O2SAT 94–98
[2017-05-05] MEDS: RESP: ALBUTEROL 2.5 MG/IPRATROPIUM 0.5 MG NEB (SCH) INH ×5 (00:29→20:39)
[2017-05-05] MEDS: MENTHOL LOZENGE BUCCAL PRN ×4 (00:32→20:59)
[2017-05-05] MEDS: SODIUM CHLOR 0.9% 1000 ML INJ 1,000 ML IV SCH (03:38)
[2017-05-05] MEDS: LEVOTHYROXINE SODIUM 50 MCG TAB PO SCH (05:45)
[2017-05-05] MEDS: HEPARIN SODIUM - SQ 10,000 UNITS/ML VIAL SQ SCH ×2 (08:16→20:57)
[2017-05-05] MEDS: methylPREDNISolone SOD SUCC 40 MG/1 ML VIAL IV PUSH SCH ×2 (08:16→20:57)
[2017-05-05] MEDS: ETODOLAC 300 MG PO SCH (08:16)
[2017-05-05] MEDS: BUDESONIDE-FORMOTEROL 160/4.5 MCG INHALER INH SCH ×2 (08:17→20:58)
[2017-05-05] MEDS: SERTRALINE HCL 100 MG TAB PO SCH (08:17)
[2017-05-05] MEDS: PANTOPRAZOLE SOD 40 MG DELAYED RELEASE TAB PO SCH (08:17)
[2017-05-05] MEDS: FLUTICASONE PROPIONATE 50 MCG/ACT 16 GM NASAL SPRAY EACH NARE SCH ×2 (08:17→20:58)
[2017-05-05 08:18] LABS: ALKALINE PHOSPHATASE 82 U/L (45-117); ALT (GPT) 29 U/L (10-53); AST (GOT) 10 U/L (15-37); BICARBONATE 28.8 MEQ/L (21.0-32.0); BLOOD UREA NITROGEN 8 MG/DL (7-18); CHLORIDE 105 MEQ/L (98-107); CREATININE 0.65 MG/DL (0.50-1.00); GLOMERULAR FILTRATION RATE 91 ML/MIN (>89); GLUCOSE,RANDOM 90 MG/DL (74-106); SODIUM (NA) 144 MEQ/L (136-145); TOTAL BILIRUBIN ADULT 0.3 MG/DL (0.2-1.0); TOTAL PROTEIN 5.8 GM/DL (6.4-8.2)
[2017-05-05] MEDS: AZTREONAM INJ 1,000 MG in SODIUM CHLORIDE 0.9% INJ 100 ML IV SCH ×2 (08:27→20:56)
[2017-05-05] MEDS: SODIUM CHLORIDE 0.9% FLUSH 10 ML FLUSH IV FLUSH SCH ×2 (08:33→20:58)
[2017-05-05 08:51] LABS: HEMATOCRIT 23.1 % (35.0-46.0); HEMOGLOBIN 7.9 GM/DL (11.6-15.3); MEAN CELL VOLUME 95.4 FL (80.0-100.0); MEAN CORPUSCULAR HEMOGLOBIN 32.7 PG (27.0-34.0); MEAN CORPUSCULAR HGB CONC 34.2 % (32.0-36.0); MEAN PLATELET VOLUME 7.8 FL (7.0-11.0); PLATELET COUNT 266 TH/MM3 (150-450); RED BLOOD COUNT 2.42 MIL/MM3 (4.00-5.30); RED CELL DISTRIBUTION WIDTH 16.3 % (11.6-17.2); WHITE BLOOD COUNT 9.7 TH/MM3 (4.0-11.0)
[2017-05-05] MEDS ORDERED: PROMETHAZINE INJ 25 MG/ML VIAL IM PRN (09:15)
--- NOTE | 2017-05-05 09:29 | HHI.FPPN ---
Subjective Remarks No acute events overnight. Reports breathing much better today with improved energy. Persistent SU. No CP/abdominal pain. Occasionally gets nauseous from migraines. (Robert Pack MD) Objective Vitals Vital Signs Date Time Temp Pulse Resp B/P (MAP) Pulse Ox O2 Delivery O2 Flow Rate FiO2 05/05/17 08:26 97.8 89 20 146/65 (92) 94 05/05/17 05:15 98.0 80 24 130/72 (91) 94 05/05/17 00:20 97.7 89 23 120/69 (86) 95 05/04/17 21:50 98.1 96 23 124/58 (80) 95 05/04/17 20:17 93 Nasal Cannula 2.00 05/04/17 15:45 97.7 78 20 126/56 (79) 98 05/04/17 11:37 97.5 81 20 134/61 (85) 99 I/O 05/04/17 05/04/17 05/04/17 05/05/17 05/05/17 05/05/17 07:00 15:00 23:00 07:00 15:00 23:00 Intake Total 880 ml 1320 ml 1825 ml Balance 880 ml 1320 ml 1825 ml Intake Oral 1220 ml 825 ml IV Total 880 ml 100 ml 1000 ml # Voids 2 3 2 # Bowel Movements 1 0 0 (Robert Pack MD) Result Diagram: 05/05/17 0725 05/05/17 [address] Angiography 05/02/17 1601 Signed Impressions: Service Date/Time: Tuesday, May 02, 2017 18:08 - CONCLUSION: 1. No evidence for pulmonary artery embolism to the subsegmental level. 2. Moderate lower lobe predominant centrilobular emphysema with interval development of groundglass and interstitial opacities most predominantly in the lower lobes. Differential considerations include multilobar pneumonia, aspiration, or atypical infection/atypical edema. 3. New mediastinal and hilar adenopathy. This may be reactive/infectious in etiology. 4. Recommend followup to resolution. Hiram Scott MD Chest X-Ray 05/02/17 1155 Signed Impressions: Service Date/Time: Tuesday, May 02, 2017 12:04 - CONCLUSION: Stable interstitial changes are again noted bilaterally. No new or significant changes compared to the prior study. Rishabh Parham MD Objective Remarks GENERAL: Well-nourished, well-developed white female elderly patient sitting in bed, NAD. CARDIOVASCULAR: NRRR without murmurs, gallops, or rubs. RESPIRATORY: Breath sounds equal bilaterally. No accessory muscle use. Diffuse expiratory wheezes, crackles at bilateral bases, improved airflow from previously. GASTROINTESTINAL: Abdomen soft, non-tender, nondistended. EXTREMITIES: No cyanosis or edema. NEUROLOGICAL: Awake, alert, and oriented x 3. Non-focal. Medications and IVs Current Medications Medications (Trade) Dose Ordered Sig/Erica Route Start Time Stop Time Status Last Admin Sodium Chloride 1,000 ml @ 110 mls/hr Q9H6M IV 05/02/17 20:00 05/05/17 03:38 (NS Flush) 2 ml BID IV FLUSH 05/02/17 21:00 05/05/17 08:33 (NS Flush) 2 ml UNSCH PRN IV FLUSH 05/02/17 19:30 (Duoneb Neb) 1 ampule Q4HR NEB INH 05/02/17 20:00 05/05/17 08:56 (Albuterol Neb) 2.5 mg Q2HR NEB PRN INH 05/02/17 19:30 (Heparin Inj) 5,000 units Q12H SQ 05/02/17 20:00 05/05/17 08:16 (Depakote Er) 1,500 mg HS PO 05/02/17 21:00 05/04/17 20:55 (Lodine) 300 mg BIDPC PO 05/03/17 09:00 05/05/17 08:16 (Flonase Adam Spr) 1 spray BID EACH NARE 05/02/17 21:00 05/05/17 08:17 (Synthroid) 50 mcg DAILY@0600 PO 05/03/17 06:00 05/05/17 05:45 (Zoloft) 100 mg DAILY PO 05/03/17 09:00 05/05/17 08:17 (Symbicort 160-4.5 Mcg Inh) 2 puff BID INH 05/02/17 21:00 05/05/17 08:17 (Protonix) 40 mg DAILY PO 05/03/17 09:00 05/05/17 08:17 Levofloxacin/ Dextrose 150 ml @ 100 mls/hr DAILY IV 05/03/17 12:00 05/04/17 07:51 Aztreonam 1000 mg/ Sodium Chloride 100 ml @ 200 mls/hr Q12H IV 05/03/17 08:00 05/05/17 08:27 (Tylenol) 650 mg Q6H PRN PO 05/02/17 20:00 05/03/17 21:43 (Halma Daniel) 1 lozenge UNSCH PRN BUCCAL 05/02/17 22:45 05/05/17 06:22 (SoluMEDROL INJ) 40 mg Q12HR IV PUSH 05/03/17 21:00 05/05/17 08:16 (Pneumovax-23 Inj) 25 mcg ONCE ONCE IM 05/06/17 10:00 05/06/17 10:01 (Flu (Quadrivalent) Vaccine Inj) 0.5 ml ONCE ONCE IM 05/06/17 10:00 05/06/17 10:01 (Toradol Inj) 15 mg ONCE ONCE IV PUSH 05/05/17 09:15 05/05/17 09:16 UNV (Toradol Inj) 15 mg Q6H PRN IV PUSH 05/05/17 09:15 05/10/17 09:14 UNV (Phenergan Inj) 12.5 mg Q6H PRN IM 05/05/17 09:15 UNV (Robert Pack MD) A/P Assessment and Plan 66-year-old female with history of COPD/asthma presents with shortness of breath and clinical/radiographic signs of pneumonia/COPD exacerbation. (Robert Pack MD) Attending Attestation Patient seen and examined. Case reviewed and discussed with the resident team. Agree with plan of care as discussed with me and documented in the resident note. concerned with anemia. will be sure she is not having a GI bleed (Mary Wilks MD) Problem List: (1) Sepsis ICD Codes: A41.9 - Sepsis, unspecified organism Status: Resolved Plan: On admission met sepsis criteria, increased pulse, increased white blood cell count, pneumonia clinically and on imaging Clinically improved, sepsis resolved BCx NGTD x2 Legionella and Strep pneum antigen testing pending * Discontinue IVF as patient is eating and drinking well now * Continue broad-spectrum antibiotics aztreonam and Levaquin due to her multiple allergies * Manage COPD exacerbation as below (2) COPD exacerbation ICD Codes: J44.1 - COPD exacerbation Status: Acute Plan: CT findings as above Clinically improved * Radiology recommending outpatient CT for follow up of above findings once acute issues resolved (can be done outpatient) * PT recommending HH (patient declines inpatient rehab) * Antibiotic coverage with Levaquin and aztreonam * Solumedrol 40mg IV q12h * DuoNebs Q4H while awake * Albuterol neb Q2H PRN * Continue Symbicort (3) Psychiatric disorder ICD Codes: F99 - Mental disorder, not otherwise specified Status: Chronic Plan: Continue home medications she reports that [facility] and others from [facility] visit her regularly and help her as an outpt (4) Diarrhea ICD Codes: R19.7 - Diarrhea, unspecified Status: Resolved Plan: Pt reports that diarrhea has improved * Unlikely to be C diff by history and given improvement * Await legionella antigen testing as above (5) FEN/PPX Status: Acute Plan: Fluids: PO only Electrolytes: Monitor and replace as needed Nutrition: Regular diet Prophylaxis: Heparin GI: Famotidine BID Pain: Headache - hold etodolac, add toradol 15 mg IV Q6H PRN; continue tylenol PRN N/V: Phenergan Q6H PRN (worked for patient in past) Code status: FULL CODE (Robert Pack MD) Problem Qualifiers (1) Sepsis: Qualified Codes: A41.9 - Sepsis, unspecified organism (2) Diarrhea: Qualified Codes: R19.7 - Diarrhea, unspecified Robert Pack MD May 05, 2017 09:29 Mary Wilks MD May 08, 2017 16:24
[2017-05-05] MEDS ORDERED: KETOROLAC TROMETHAMINE 30 MG/ML (IVP) VIAL IV PUSH ONE (09:30)
[2017-05-05] MEDS: LEVOFLOXACIN 750 MG PREMIX INJ 150 ML IV SCH (10:22)
[2017-05-05] MEDS: DIVALPROEX SODIUM E.R. 500 MG TAB PO SCH (20:57)
[2017-05-06] VITALS (8 sets, daily range): BP systolic 120–133; BP diastolic 56–64; PULSE 78–98; RESP 18–23; TEMP 97.6–98.5; O2SAT 94–97
[2017-05-06] MEDS: MENTHOL LOZENGE BUCCAL PRN ×2 (00:09→06:32)
[2017-05-06] MEDS: RESP: ALBUTEROL 2.5 MG/3 ML NEB (PRN) INH (04:15)
[2017-05-06] MEDS: KETOROLAC TROMETHAMINE 30 MG/ML (IVP) VIAL IV PUSH PRN ×2 (06:32→20:59)
[2017-05-06] MEDS: LEVOTHYROXINE SODIUM 50 MCG TAB PO SCH (06:32)
[2017-05-06] MEDS: AZTREONAM INJ 1,000 MG in SODIUM CHLORIDE 0.9% INJ 100 ML IV SCH ×2 (07:58→20:37)
[2017-05-06] MEDS: PANTOPRAZOLE SOD 40 MG DELAYED RELEASE TAB PO SCH (07:59)
[2017-05-06] MEDS: SERTRALINE HCL 100 MG TAB PO SCH (07:59)
[2017-05-06] MEDS: methylPREDNISolone SOD SUCC 40 MG/1 ML VIAL IV PUSH SCH ×2 (08:00→20:38)
[2017-05-06] MEDS: HEPARIN SODIUM - SQ 10,000 UNITS/ML VIAL SQ SCH ×2 (08:03→20:38)
[2017-05-06] MEDS: FLUTICASONE PROPIONATE 50 MCG/ACT 16 GM NASAL SPRAY EACH NARE SCH ×2 (08:04→20:37)
[2017-05-06] MEDS: BUDESONIDE-FORMOTEROL 160/4.5 MCG INHALER INH SCH ×2 (08:04→20:36)
--- NOTE | 2017-05-06 09:03 | HHI.FPPN ---
Subjective Remarks Saw and examined patient this morning. She states that she feels 52% better. She still feels like her breathing is weak. She wants to go home instead of rehab due to her not liking to be around a lot of people. She is amenable to spending more time in the hospital to get stronger since she is not up and walking like she should. Requests art therapy. No fever/chills. (Mary Ellen Beasley MD R1) Objective Vitals Vital Signs Date Time Temp Pulse Resp B/P (MAP) Pulse Ox O2 Delivery O2 Flow Rate FiO2 05/06/17 08:25 97.6 78 20 133/63 (86) 97 05/06/17 04:00 97.7 90 23 120/64 (82) 95 05/06/17 00:00 98.1 98 19 125/60 (81) 96 05/05/17 20:39 94 Nasal Cannula 3.00 05/05/17 20:00 97.2 101 20 131/58 (82) 96 05/05/17 16:12 98.0 91 20 115/53 (73) 98 05/05/17 11:48 98.1 93 20 118/62 (80) 95 I/O 05/05/17 05/05/17 05/05/17 05/06/17 05/06/17 05/06/17 07:00 15:00 23:00 07:00 15:00 23:00 Intake Total 1825 ml 1190 ml 1900 ml 800 ml Balance 1825 ml 1190 ml 1900 ml 800 ml Intake Oral 825 ml 940 ml 900 ml 800 ml IV Total 1000 ml 250 ml 1000 ml # Voids 2 4 1 2 # Bowel Movements 0 1 0 0 (Mary Ellen Beasley MD R1) Result Diagram: 05/05/17 0725 05/05/17 [address] Angiography 05/02/17 1601 Signed Impressions: Service Date/Time: Tuesday, May 02, 2017 18:08 - CONCLUSION: 1. No evidence for pulmonary artery embolism to the subsegmental level. 2. Moderate lower lobe predominant centrilobular emphysema with interval development of groundglass and interstitial opacities most predominantly in the lower lobes. Differential considerations include multilobar pneumonia, aspiration, or atypical infection/atypical edema. 3. New mediastinal and hilar adenopathy. This may be reactive/infectious in etiology. 4. Recommend followup to resolution. Hiram Scott MD Chest X-Ray 05/02/17 1155 Signed Impressions: Service Date/Time: Tuesday, May 02, 2017 12:04 - CONCLUSION: Stable interstitial changes are again noted bilaterally. No new or significant changes compared to the prior study. Rishabh Parham MD Objective Remarks GENERAL: Well-nourished, well-developed white female elderly patient sitting in bed, NAD. CARDIOVASCULAR: NRRR without murmurs, gallops, or rubs. RESPIRATORY: Breath sounds equal bilaterally. No accessory muscle use. Diffuse expiratory wheezes, crackles at bilateral bases, decreased air movement diffusely.. GASTROINTESTINAL: Abdomen soft, non-tender, nondistended. EXTREMITIES: No cyanosis or edema. NEUROLOGICAL: Awake, alert, and oriented x 3. Non-focal. (Mary Ellen Beasley MD R1) A/P Assessment and Plan 66-year-old female with history of COPD/asthma presents with shortness of breath and clinical/radiographic signs of pneumonia/COPD exacerbation. (Mary Ellen Beasley MD R1) Attending Attestation Patient seen and examined. Case reviewed and discussed with the resident team. Agree with plan of care as discussed with me and documented in the resident note. we have all discussed with her that rehab would be the best choice but she does not like to be around a lot of people (Mary Wilks MD) Problem List: (1) Sepsis ICD Codes: A41.9 - Sepsis, unspecified organism Status: Resolved Plan: On admission met sepsis criteria, increased pulse, increased white blood cell count, pneumonia clinically and on imaging Clinically improved, sepsis resolved BCx NGTD x2 Legionella and Strep pneum antigen testing pending * Continue broad-spectrum antibiotics aztreonam and Levaquin due to her multiple allergies * Manage COPD exacerbation as below (2) COPD exacerbation ICD Codes: J44.1 - COPD exacerbation Status: Acute Plan: CT findings as above Clinically improved * Radiology recommending outpatient CT for follow up of above findings once acute issues resolved * PT recommending HH (patient declines inpatient rehab) * OT recommending rehab * Antibiotic coverage with Levaquin and aztreonam * Solumedrol 40mg IV q12h * DuoNebs Q4H while awake * Albuterol neb Q2H PRN * Continue Symbicort (3) Psychiatric disorder ICD Codes: F99 - Mental disorder, not otherwise specified Status: Chronic Plan: Continue home medications she reports that [facility] and others from [facility] visit her regularly and help her as an outpt (4) Diarrhea ICD Codes: R19.7 - Diarrhea, unspecified Status: Resolved Plan: Pt reports that diarrhea has improved * Unlikely to be C diff by history and given improvement * Await legionella antigen testing as above (5) FEN/PPX Status: Acute Plan: Fluids: PO only Electrolytes: Monitor and replace as needed Nutrition: Regular diet Prophylaxis: Heparin GI: Famotidine BID Pain: Headache - hold etodolac, added toradol 15 mg IV Q6H PRN on 05/05; continue tylenol PRN N/V: Phenergan Q6H PRN (worked for patient in past) Code status: FULL CODE (Mary Ellen Beasley MD R1) Problem Qualifiers (1) Sepsis: Qualified Codes: A41.9 - Sepsis, unspecified organism (2) Diarrhea: Qualified Codes: R19.7 - Diarrhea, unspecified Mary Ellen Beasley MD R1 May 06, 2017 09:03 Mary Wilks MD May 08, 2017 16:25
[2017-05-06] MEDS: RESP: ALBUTEROL 2.5 MG/IPRATROPIUM 0.5 MG NEB (SCH) INH ×4 (09:42→20:00)
[2017-05-06] MEDS ORDERED: INFLUENZA VIRUS VACCINE (QUADRIVALENT) 0.5 ML SYR IM ONE (10:00)
[2017-05-06] MEDS ORDERED: PNEUMOCOCCAL POLYVALENT INJ 25 MCG/0.5 ML SYR IM ONE (10:00)
[2017-05-06] MEDS: LEVOFLOXACIN 750 MG PREMIX INJ 150 ML IV SCH (10:09)
[2017-05-06] MEDS: SODIUM CHLORIDE 0.9% FLUSH 10 ML FLUSH IV FLUSH SCH ×2 (10:33→20:38)
[2017-05-06] MEDS: DIVALPROEX SODIUM E.R. 500 MG TAB PO SCH (20:39)
[2017-05-07] VITALS (7 sets, daily range): BP systolic 124–138; BP diastolic 58–85; PULSE 87–104; RESP 18–19; TEMP 97.7–98.6; O2SAT 93–96
[2017-05-07] MEDS: MENTHOL LOZENGE BUCCAL PRN ×4 (02:27→18:22)
[2017-05-07] MEDS: RESP: ALBUTEROL 2.5 MG/3 ML NEB (PRN) INH (02:48)
[2017-05-07] MEDS: LEVOTHYROXINE SODIUM 50 MCG TAB PO SCH (05:19)
[2017-05-07] MEDS: AZTREONAM INJ 1,000 MG in SODIUM CHLORIDE 0.9% INJ 100 ML IV SCH ×2 (07:30→20:03)
[2017-05-07] MEDS: methylPREDNISolone SOD SUCC 40 MG/1 ML VIAL IV PUSH SCH (07:31)
[2017-05-07] MEDS: SODIUM CHLORIDE 0.9% FLUSH 10 ML FLUSH IV FLUSH SCH ×2 (07:31→20:08)
[2017-05-07] MEDS: PANTOPRAZOLE SOD 40 MG DELAYED RELEASE TAB PO SCH (07:34)
[2017-05-07] MEDS: SERTRALINE HCL 100 MG TAB PO SCH (07:34)
[2017-05-07] MEDS: HEPARIN SODIUM - SQ 10,000 UNITS/ML VIAL SQ SCH ×2 (07:35→20:08)
[2017-05-07] MEDS: BUDESONIDE-FORMOTEROL 160/4.5 MCG INHALER INH SCH ×2 (07:39→20:08)
[2017-05-07] MEDS: FLUTICASONE PROPIONATE 50 MCG/ACT 16 GM NASAL SPRAY EACH NARE SCH ×2 (07:39→20:09)
[2017-05-07 08:02] LABS: HEMOGLOBIN 7.5 GM/DL (11.6-15.3)
[2017-05-07 08:08] LABS: HEMATOCRIT 20.4 % (35.0-46.0)
[2017-05-07] MEDS: RESP: ALBUTEROL 2.5 MG/IPRATROPIUM 0.5 MG NEB (SCH) INH ×4 (08:42→19:46)
[2017-05-07] MEDS: FERROUS SULFATE 325 MG (65 MG ELEMENTAL IRON) TAB PO SCH ×2 (08:47→20:08)
[2017-05-07] MEDS: LEVOFLOXACIN 750 MG PREMIX INJ 150 ML IV SCH (08:47)
--- NOTE | 2017-05-07 09:40 | HHI.FF ---
Face to Face Verification Diagnosis: (1) COPD (chronic obstructive pulmonary disease) (2) Psychiatric disorder Physical Therapy Order: Evaluate and Treat, Improve ambulation, Strength and gait training Occupational Therapy Order: Evaluate and Treat, Improve ADL Home Health Nursing Order: Medical education Signs/symptoms of disease process Oxygen administration education Nursing assessment with vital signs I have seen patient Duane Aceves on 05/07/17. My clinical findings support the need for the requested home health care services because: Ltd mobility - disease progression Patient has SOB Deconditioned w/ increased weakness Need for psychosocial assistance High risk of falls I certify that my clinical findings support that this patient is homebound because: Hx COPD- exertion dyspnea/weakness Unsteady gait/balance Need for psychosocial assistance Robert Pack MD May 07, 2017 09:40
[2017-05-07] MEDS ORDERED: OXYGENDME NAS.CANULA ×2 (09:45→09:56)
[2017-05-07] MEDS ORDERED: NEBULIZER/ADULT1 KIT ×2 (09:45→09:56)
--- NOTE | 2017-05-07 12:06 | HHI.FPPN ---
Subjective Remarks No acute events overnight. Feels well this morning and wants to go home. Persistent dry cough but much improved per patient. No SOB or wheezing. Energy improved. No chest pains. Persistent mild headache. (Robert Pack MD) Objective Vitals Vital Signs Date Time Temp Pulse Resp B/P (MAP) Pulse Ox O2 Delivery O2 Flow Rate FiO2 05/07/17 08:42 93 Nasal Cannula 2.00 05/07/17 08:16 98.1 91 18 130/59 (82) 93 05/07/17 05:30 97.7 90 18 125/58 (80) 95 05/07/17 00:40 98.0 92 18 124/60 (81) 94 05/06/17 22:02 96 Nasal Cannula 2.00 05/06/17 20:30 97.8 98 18 120/56 (77) 96 05/06/17 16:27 98.0 89 20 133/62 (85) 94 I/O 05/06/17 05/06/17 05/06/17 05/07/17 05/07/17 05/07/17 07:00 15:00 23:00 07:00 15:00 23:00 Intake Total 800 ml 970 ml 460 ml 250 ml Balance 800 ml 970 ml 460 ml 250 ml Intake Oral 800 ml 720 ml 360 ml IV Total 250 ml 100 ml 250 ml # Voids 2 7 5 # Bowel Movements 0 2 (Robert Pack MD) Result Diagram: 05/07/17 0620 05/05/17 [address] Angiography 05/02/17 1601 Signed Impressions: Service Date/Time: Tuesday, May 02, 2017 18:08 - CONCLUSION: 1. No evidence for pulmonary artery embolism to the subsegmental level. 2. Moderate lower lobe predominant centrilobular emphysema with interval development of groundglass and interstitial opacities most predominantly in the lower lobes. Differential considerations include multilobar pneumonia, aspiration, or atypical infection/atypical edema. 3. New mediastinal and hilar adenopathy. This may be reactive/infectious in etiology. 4. Recommend followup to resolution. Hiram Scott MD Chest X-Ray 05/02/17 1155 Signed Impressions: Service Date/Time: Tuesday, May 02, 2017 12:04 - CONCLUSION: Stable interstitial changes are again noted bilaterally. No new or significant changes compared to the prior study. Rishabh Parham MD Objective Remarks GENERAL: Well-nourished, well-developed white female elderly patient sitting in bed, NAD. CARDIOVASCULAR: NRRR without murmurs, gallops, or rubs. RESPIRATORY: Breath sounds equal bilaterally. No accessory muscle use. Crackles at bilateral bases, good air movement bilaterally, no wheezing. GASTROINTESTINAL: Abdomen soft, non-tender, nondistended. EXTREMITIES: No cyanosis or edema. NEUROLOGICAL: Awake, alert, and oriented x 3. Non-focal. (Robert Pack MD) A/P Assessment and Plan 66-year-old female with history of COPD/asthma presents with shortness of breath and clinical/radiographic signs of pneumonia/COPD exacerbation. (Robert Pack MD) Attending Attestation Patient seen and examined. Case reviewed and discussed with the resident team. Agree with plan of care as discussed with me and documented in the resident note. checking for cause of anemia. it could be drug related as aztreonam can cause bone marrow suppression (Mary Wilks MD) Problem List: (1) COPD exacerbation ICD Codes: J44.1 - COPD exacerbation Status: Acute Plan: CT findings as above Clinically much improved * Radiology recommending outpatient CT for follow up of above findings once acute issues resolved * PT recommending HH (patient declines inpatient rehab) * OT recommending rehab * F/u PT/OT recs again today. Likely can be safe discharge home with home health * Home O2 walk test; CM to arrange home O2 if needed * Antibiotic coverage with Levaquin and aztreonam * On discharge can do amoxicillin or augmentin to complete 7-10 days treatment * Switch IV solu-medrol to PO prednisone, 40 mg daily * DuoNebs Q6H while awake * Albuterol neb Q2H PRN * Continue Symbicort (2) Anemia ICD Codes: D64.9 - Anemia, unspecified Status: Chronic Plan: Chronic normocytic anemia, exact etiology unknown Hgb on admission ~10, now 7.5 Patient asymptomatic, no signs/Sx of GIB - Continue to monitor. Has been stable but low ~7.5 for last 3 days - F/u CBC as outpatient (3) Psychiatric disorder ICD Codes: F99 - Mental disorder, not otherwise specified Status: Chronic Plan: Continue home medications she reports that FACT and others from [facility] visit her regularly and help her as an outpt (4) FEN/PPX Status: Acute Plan: Fluids: PO only Electrolytes: Monitor and replace as needed Nutrition: Regular diet Prophylaxis: Heparin GI: Famotidine BID Pain: Headache - hold etodolac, added toradol 15 mg IV Q6H PRN on 05/05; continue tylenol PRN N/V: Phenergan Q6H PRN (worked for patient in past) Code status: FULL CODE (Robert Pack MD) Robert Pack MD May 07, 2017 12:05 Mary Wilks MD May 08, 2017 16:26
[2017-05-07] MEDS ORDERED: GETGO ROLLING W1 MI1 (14:59)
[2017-05-07] MEDS: DIVALPROEX SODIUM E.R. 500 MG TAB PO SCH (20:08)
[2017-05-07] MEDS: DEXTROMETHORPHAN SYRUP 7.5MG/5ML UDC PO PRN (22:06)
[2017-05-08] VITALS: BP 134/86; PULSE 111; RESP 18; TEMP 97.5; O2SAT 99
[2017-05-08 04:00] VITALS: BP 114/57; PULSE 82; RESP 18; TEMP 98; O2SAT 97
[2017-05-08 05:26] LABS: HEMOGLOBIN 8.1 GM/DL (11.6-15.3)
[2017-05-08] MEDS: DEXTROMETHORPHAN SYRUP 7.5MG/5ML UDC PO PRN (05:43)
[2017-05-08] MEDS: LEVOTHYROXINE SODIUM 50 MCG TAB PO SCH (05:43)
[2017-05-08] MEDS: RESP: ALBUTEROL 2.5 MG/IPRATROPIUM 0.5 MG NEB (SCH) INH ×3 (05:51→15:53)
[2017-05-08 05:55] LABS: % SATURATION IRON PROFILE 29.9 % (20-50); IRON (FE) 56 MCG/DL (50-170); TOTAL IRON BINDING CAPACITY 188 MCG/DL (250-450)
[2017-05-08 05:58] LABS: FERRITIN 136 NG/ML (8-252)
[2017-05-08] MEDS: HEPARIN SODIUM - SQ 10,000 UNITS/ML VIAL SQ SCH (07:32)
[2017-05-08] MEDS: PANTOPRAZOLE SOD 40 MG DELAYED RELEASE TAB PO SCH (07:32)
[2017-05-08] MEDS: SERTRALINE HCL 100 MG TAB PO SCH (07:32)
[2017-05-08] MEDS: MENTHOL LOZENGE BUCCAL PRN ×2 (07:34→13:24)
[2017-05-08] MEDS: FLUTICASONE PROPIONATE 50 MCG/ACT 16 GM NASAL SPRAY EACH NARE SCH (07:35)
[2017-05-08] MEDS: SODIUM CHLORIDE 0.9% FLUSH 10 ML FLUSH IV FLUSH SCH (07:35)
[2017-05-08] MEDS: AZTREONAM INJ 1,000 MG in SODIUM CHLORIDE 0.9% INJ 100 ML IV SCH (07:35)
[2017-05-08] MEDS: BUDESONIDE-FORMOTEROL 160/4.5 MCG INHALER INH SCH (07:35)
[2017-05-08] MEDS: FERROUS SULFATE 325 MG (65 MG ELEMENTAL IRON) TAB PO SCH (07:36)
[2017-05-08 08:16] VITALS: BP 126/61; PULSE 94; RESP 20; TEMP 98.5; O2SAT 93
[2017-05-08] MEDS: LEVOFLOXACIN 750 MG PREMIX INJ 150 ML IV SCH (08:35)
[2017-05-08] MEDS ORDERED: predniSONE 20 MG TAB PO SCH (09:00)
[2017-05-08] MEDS: KETOROLAC TROMETHAMINE 30 MG/ML (IVP) VIAL IV PUSH PRN (09:18)
[2017-05-08 12:19] VITALS: BP 132/60; PULSE 87; RESP 20; TEMP 98.7; O2SAT 96
[2017-05-08] MEDS ORDERED: INSPIREASE DRUG1 EA (12:31)
[2017-05-08] MEDS ORDERED: FERR325T20 PO (12:31)
[2017-05-08] MEDS ORDERED: LEVO500T8 PO (12:31)
[2017-05-08] MEDS ORDERED: SPIRCAP INH (12:31)
[2017-05-08] MEDS ORDERED: ROBI7.5S PO (12:31)
--- NOTE | 2017-05-08 15:12 | HHI.FPPN ---
Subjective Remarks Saw and examined patient this morning. She states that she is doing well. She is ready to go home. She has walked up and down the hallway of the floor and feels stronger. She is also breathing better. No chest pain, no abdominal pain, no problems with urination or bowel movements. (Mary Ellen Beasley MD R1) Objective Vitals Vital Signs Date Time Temp Pulse Resp B/P (MAP) Pulse Ox O2 Delivery O2 Flow Rate FiO2 05/08/17 12:19 98.7 87 20 132/60 (84) 96 05/08/17 08:16 98.5 94 20 126/61 (82) 93 05/08/17 04:00 98.0 82 18 114/57 (76) 97 05/08/17 00:00 97.5 111 18 134/86 (102) 99 05/07/17 20:00 98.6 104 18 136/85 (102) 93 05/07/17 17:21 98.0 87 19 138/64 (88) 96 05/07/17 15:50 93 Nasal Cannula 2.00 I/O 05/07/17 05/07/17 05/07/17 05/08/17 05/08/17 05/08/17 07:00 15:00 23:00 07:00 15:00 23:00 Intake Total 460 ml 250 ml 1060 ml 610 ml Balance 460 ml 250 ml 1060 ml 610 ml Intake Oral 360 ml 960 ml 360 ml IV Total 100 ml 250 ml 100 ml 250 ml # Voids 5 7 12 3 # Bowel Movements 2 1 1 (Mary Ellen Beasley MD R1) Result Diagram: 05/08/17 0514 05/05/17 [address] Angiography 05/02/17 1601 Signed Impressions: Service Date/Time: Tuesday, May 02, 2017 18:08 - CONCLUSION: 1. No evidence for pulmonary artery embolism to the subsegmental level. 2. Moderate lower lobe predominant centrilobular emphysema with interval development of groundglass and interstitial opacities most predominantly in the lower lobes. Differential considerations include multilobar pneumonia, aspiration, or atypical infection/atypical edema. 3. New mediastinal and hilar adenopathy. This may be reactive/infectious in etiology. 4. Recommend followup to resolution. Hiram Scott MD Chest X-Ray 05/02/17 1155 Signed Impressions: Service Date/Time: Tuesday, May 02, 2017 12:04 - CONCLUSION: Stable interstitial changes are again noted bilaterally. No new or significant changes compared to the prior study. Rishabh Parham MD Objective Remarks GENERAL: Well-nourished, well-developed white female elderly patient sitting in bed, NAD. CARDIOVASCULAR: NRRR without murmurs, gallops, or rubs. RESPIRATORY: Breath sounds equal bilaterally. No accessory muscle use. Crackles at bilateral bases, good air movement bilaterally, no wheezing. GASTROINTESTINAL: Abdomen soft, non-tender, nondistended. EXTREMITIES: No cyanosis or edema. NEUROLOGICAL: Awake, alert, and oriented x 3. Non-focal. (Mary Ellen Beasley MD R1) A/P Assessment and Plan 66-year-old female with history of COPD/asthma presents with shortness of breath and clinical/radiographic signs of pneumonia/COPD exacerbation. Discharge Planning Home today with Home Health (Mary Ellen Beasley MD R1) Attending Attestation Patient seen and examined. Case reviewed and discussed with the resident team. Agree with plan of care as discussed with me and documented in the resident note. she feels much better today and wants to go home (Mary Wilks MD) Problem List: (1) COPD exacerbation ICD Codes: J44.1 - COPD exacerbation Status: Acute Plan: CT findings as above Clinically much improved * Radiology recommending outpatient CT for follow up of above findings once acute issues resolved * PT recommending HH (patient declines inpatient rehab) * OT recommending rehab * F/u PT/OT recs again today. Likely can be safe discharge home with home health * Home O2 walk test; CM to arrange home O2 if needed * Antibiotic coverage with Levaquin and aztreonam * Discharging with Levofloxacin * Switch IV solu-medrol to PO prednisone, 40 mg daily * DuoNebs Q6H while awake * Albuterol neb Q2H PRN * Continue Symbicort (2) Anemia ICD Codes: D64.9 - Anemia, unspecified Status: Chronic Plan: Chronic normocytic anemia, exact etiology unknown Hgb on admission ~10, now 8.1 Patient asymptomatic, no signs/Sx of GIB - Continue to monitor. Has been stable but low for last 4 days - Hemoccult negativex2 - F/u CBC as outpatient (3) Psychiatric disorder ICD Codes: F99 - Mental disorder, not otherwise specified Status: Chronic Plan: Continue home medications she reports that [facility] and others from [facility] visit her regularly and help her as an outpt (4) FEN/PPX Status: Acute Plan: Fluids: PO only Electrolytes: Monitor and replace as needed Nutrition: Regular diet Prophylaxis: Heparin GI: Famotidine BID Pain: Headache - hold etodolac, added toradol 15 mg IV Q6H PRN on 05/05; continue tylenol PRN N/V: Phenergan Q6H PRN (worked for patient in past) Code status: FULL CODE (Mary Ellen Beasley MD R1) Mary Ellen Beasley MD R1 May 08, 2017 15:12 Mary Wilks MD May 08, 2017 16:28
--- NOTE | 2017-05-08 15:18 | HHI.DS ---
Discharge Summary Admission Date May 02, 2017 at 7:32 pm Discharge Date: May 08, 2017 Admitting Diagnosis (1) COPD exacerbation Plan: CT findings as above Clinically much improved * Radiology recommending outpatient CT for follow up of above findings once acute issues resolved * PT recommending HH (patient declines inpatient rehab) * OT recommending rehab * F/u PT/OT recs again today. Likely can be safe discharge home with home health * Home O2 walk test; CM to arrange home O2 if needed * Antibiotic coverage with Levaquin and aztreonam * Discharging with Levofloxacin * Switch IV solu-medrol to PO prednisone, 40 mg daily * DuoNebs Q6H while awake * Albuterol neb Q2H PRN * Continue Symbicort ICD Codes: J44.1 - COPD exacerbation Status: Acute (2) Anemia Plan: Chronic normocytic anemia, exact etiology unknown Hgb on admission ~10, now 8.1 Patient asymptomatic, no signs/Sx of GIB - Continue to monitor. Has been stable but low for last 4 days - Hemoccult negativex2 - F/u CBC as outpatient ICD Codes: D64.9 - Anemia, unspecified Status: Chronic (3) Psychiatric disorder Plan: Continue home medications she reports that [facility] and others from [facility] visit her regularly and help her as an outpt ICD Codes: F99 - Mental disorder, not otherwise specified Status: Chronic (4) FEN/PPX Plan: Fluids: PO only Electrolytes: Monitor and replace as needed Nutrition: Regular diet Prophylaxis: Heparin GI: Famotidine BID Pain: Headache - hold etodolac, added toradol 15 mg IV Q6H PRN on 05/05; continue tylenol PRN N/V: Phenergan Q6H PRN (worked for patient in past) Code status: FULL CODE Status: Acute Brief History Ms Aceves is a 66-year-old female with history of COPD/asthma as a child and psychiatric illness who presented complaining of diarrhea and cough 1 week. Patient has had diarrhea for the past 4 days. She has been through 60 diapers in the last 4 days. She has also had some nausea but no vomiting. She only has abdominal discomfort when she coughs. She denies blood in her stool. She denies black stools. She also states that she has had difficulty breathing for the last "couple of weeks." She has also had subjective fevers with MAXIMUM TEMPERATURE of 99.1 at home. She states that a doctor at [facility] recommended taking Robitussin and nyquil which she has been taking for the past week. Her cough has been productive feeling more fatigued recently. She does not feel well. She denies dysuria. Denies chest pain. She has been having shortness of breath. She reports she quit smoking cigarettes back in the 80s more than 30 years ago. She states she had asthma as a child and that her advair is the med that helps her the most. CBC/BMP: 05/08/17 0514 05/05/17 0725 Significant Findings Laboratory Tests Test 05/07/17 06:20 05/08/17 05:14 05/08/17 05:15 Hemoglobin 7.5 GM/DL (11.6-15.3) 8.1 GM/DL (11.6-15.3) Hematocrit 20.4 % (35.0-46.0) 23.0 % (35.0-46.0) Total Iron Binding Capacity 188 MCG/DL (250-450) PE at Discharge GENERAL: Well-nourished, well-developed white female elderly patient sitting in bed, NAD. CARDIOVASCULAR: NRRR without murmurs, gallops, or rubs. RESPIRATORY: Breath sounds equal bilaterally. No accessory muscle use. Crackles at bilateral bases, good air movement bilaterally, no wheezing. GASTROINTESTINAL: Abdomen soft, non-tender, nondistended. EXTREMITIES: No cyanosis or edema. NEUROLOGICAL: Awake, alert, and oriented x 3. Non-focal. Hospital Course 66-year-old female with history of COPD and psychiatric illness presents complaining of diarrhea and cough 1 week. Patient begins by saying that she has had diarrhea for the past 4 days. CXR at admission showed stable interstitial changes bilaterally. CTA showed no evidence for PE and moderate lower lobe predominant centrilobular emphysema with interval development of ground glass and interstitial opacities most predominantly in the lower lobes. She was admitted and started on Levaquin and Aztreonam due to her hx of abx allergies. Also, on 05/04, day 3 of her stay, her hgb dropped from 10.5 to 7.8. Hemoccult was negative x2 and her hgb stabilized but stayed low. She was found to be very weak during her stay and was evaluated by PT and OT who both recommended rehab. Pt refused. She is being discharged with home health. Pt Condition on Discharge: Stable Discharge Disposition: Disch w/ Home Health Serv Discharge Instructions DIET: Follow Instructions for: As Tolerated, No Restrictions Activities you can perform: See Additionl Instruction Other Activity Instructions: Please follow physical therapy instructions Follow up Referrals: PCP Follow-up - 1 Week with Blayne Us MD, R3 PCP Follow-up New Orders: CBC WITH DIFF - 3-5 Days New Medications: Levofloxacin (Levofloxacin) 500 Mg Tablet 500 MG PO DAILY for Infection, #7 TAB 0 Refills Nebulizer/Adult Mask (Nebulizer/Adult Mask) 1 Kit Kit KIT .ROUTE DIRECTED for Breathing Treatment, #1 0 Refills Oxygen (O2) (Oxygen (O2)) Device LITER JUAN DAVID.CANULA CONTINUOUS for Prevent Hypoxemia, #2 Oxygen Concentrator Portable Gaseous 2 L/min via Nasal Canula Continuous For 99 months Spacer/Device For Mdi (Inspirease Drug Delivery) 1 Ea Mis EA .ROUTE DIRECTED, #1 0 Refills Tiotropium Inh (Spiriva Handihaler) 18 Mcg Cap 18 MCG INH DAILY for COPD, #30 CAP 0 Refills 1 capsule = 18 mcg Walker Rolling/GetGo (Walker Rolling/GetGo) 1 Mis Mis EA .ROUTE DIRECTED, #1 Dextromethorphan Liq (Robitussin Childrens Cough Liq) 7.5 Mg/5 Ml Syp 7.5 MG PO Q6H PRN for COUGH, #1 BOTTLE Ferrous Sulfate (Ferosul) 325 Mg (65 Mg Iron) Tablet 325 MG PO DAILY, #30 Continued Medications: Albuterol 8.5 GM Inh (Proair Hfa 8.5 GM Inh) 90 Mcg/Act Aer 2 PUFF INH Q4-6H PRN for SHORTNESS OF BREATH, #1 INHALER 0 Refills 108 mcg/actuation Aspirin (Aspirin) 325 Mg Tab 325 MG PO DAILY, TAB 0 Refills Divalproex ER (Depakote ER) 500 Mg Marilee 1500 MG PO HS for Control Seizures, TAB 0 Refills Etodolac (Etodolac) 200 Mg Cap 200 MG PO TID for Pain Management, #90 CAP 3 Refills Take with food. Fluticasone Nasal [place] (Fluticasone Nasal [place]) 50 Mcg/Act Naspr 100 MCG EACH NARE BID for Allergy Management, #1 BOTTLE 0 Refills 50 mcg/spray Fluticasone-Salmeterol Inh (Advair Diskus Inh) 250-50 Mcg/Blist Aer 1 PUFF INH BID, #1 INHALER 3 Refills Rinse mouth after use. Levothyroxine (Levothyroxine) 50 Mcg Tab 50 MCG PO DAILY for Thyroid, #30 TAB 3 Refills Multiple Vitamin (Multiple Vitamin) 1 Tab 1 TAB PO DAILY for Nutritional Supplement, TAB 0 Refills Omeprazole (Omeprazole) 20 Mg Tab 40 MG PO DAILY, #30 TAB 0 Refills Paliperidone Palmitate Inj (Invega Sustenna Inj) 156 Mg/Ml Inj 156 MG IM Q28D for Schizophrenia, #1 VIAL 0 Refills Sertraline (Zoloft) 100 Mg Tab 100 MG PO DAILY, TAB 0 Refills Simvastatin (Simvastatin) 40 Mg Tab 40 MG PO HS for Cholesterol Management, TAB 0 Refills Mary Ellen Beasley MD R1 May 08, 2017 3:18 pm
[2017-05-08 16:20] VITALS: O2SAT 92
[2017-05-11] MEDS ORDERED: ALBUAER3 INH (08:27)
[2017-05-11] MEDS ORDERED: ALBU.5I NEB (14:19)
== END 2017-05-08 17:13 | disposition home health service (06) | DRG 871 ==
LOC: NEPC 11:06 → OBSVTOIN 19:32 → INTOOBSV 19:32 → NEDA 19:32 → N05A 21:16
PROVIDERS: ADMIT Family Medicine; ATTEND Family Medicine
DX: A41.9 Sepsis, unspecified organism (principal); J18.9 Pneumonia, unspecified organism; R19.7 Diarrhea, unspecified; E03.9 Hypothyroidism, unspecified; J43.2 Centrilobular emphysema; I25.2 Old myocardial infarction; K58.0 Irritable bowel syndrome with diarrhea; D50.0 Iron deficiency anemia secondary to blood loss (chronic); K21.9 Gastro-esophageal reflux disease without esophagitis; D64.9 Anemia, unspecified; F20.9 Schizophrenia, unspecified; F31.9 Bipolar disorder, unspecified; F41.9 Anxiety disorder, unspecified; Z23 Encounter for immunization; Z86.73 Personal history of transient ischemic attack (TIA), and cerebral infarction without residual deficits; Z87.891 Personal history of nicotine dependence; Z88.0 Allergy status to penicillin; Z88.2 Allergy status to sulfonamides; Z90.710 Acquired absence of both cervix and uterus
CPT/HCPCS: 36600; 71010; 71275; 80053; 81001; 82272; 82728; 82805; 83540; 83550; 83605; 83880; 84484; 85014; 85018; 85025; 85027; 85379; 85610; 85730; 87040; 87804; 90686; 90732; 93005; 94150; 94618; 94640; 94664; 96361; 96365; 96367; 96375; J1644; J1885; J1956; J2405; J2920; J7030; J7512; J7613; Q2038; Q9967

== ENCOUNTER 2017-05-15 10:48 | Inpatient (IN) | payer MEDICARE, MEDICAID ==
[~2017-05-15] VITALS: Ht 157.5 cm; Wt 68.7 kg
[~2017-05-15 10:48] MED LIST changes: +ALBU.5I NEB; +ASPI-183 PO; -ECOT325T PO; +FERR325T20 PO; +GETGO ROLLING W1 MI1; +INSPIREASE DRUG1 EA; +LEVO500T8 PO; +MULTTAB67 PO; +NEBULIZER/ADULT1 KIT; +OXYGENDME NAS.CANULA; +ROBI7.5S PO; -SERT100 PO; -SIMV40 PO; +SIMV40TA PO; +SPIRCAP INH; -TAB-TAB PO; +ZOLO100T PO
[2017-05-15 10:51] VITALS: BP 114/72; PULSE 99; RESP 16; TEMP 98.7; O2SAT 94
--- NOTE | 2017-05-15 11:25 | RADRPT ---
EXAM DATE/TIME: 05/15/2017 11:12 [place] COMPARISON: CHEST PA & LAT, March 07, 2016, 13:07. CHEST SINGLE AP, March 13, 2016, 11:52. CHEST SINGLE A P, May 02, 2017, 12:04. INDICATIONS : Short of breath. MEDICAL HISTORY : Cerebrovascular disease. Cardiovascular disease. Chronic obstructive pulmonary disease. hiatal he rnia SURGICAL HISTORY : Hysterectomy. ENCOUNTER: Initial ACUITY: 1 day PAIN SCORE: Non-responsive. LOCATION: Bilateral chest FINDINGS: There is patchy bilateral perihilar and basilar parenchymal opacity which may reflect patchy bronchit ic change. No evidence of lobar consolidation or significant effusion. Cardiac contours are satisfact ory for technique and projection. CONCLUSION: Patchy bilateral perihilar and basilar parenchymal opacities. Vikash Neri MD on May 15, 2017 at 11:21 Board Certified Radiologist. This report was verified electronically.
--- NOTE | 2017-05-15 11:59 | PD ---
HPI Chief Complaint: Respiratory Distress Time Seen by Provider: 11:46 Travel History International Travel<30 days: No Contact w/Intl Traveler<30days: No Traveled to known affect area: No History of Present Illness HPI 58-year-old female presents to the emergency department via EMS for evaluation of worsening shortness of breath and chest congestion. Patient was seen here on May 02 and discharged on May 08 for pneumonia. She states that she has been getting worse since being discharged. She reports shortness of breath and chest congestion. She denies any fevers or chills. No chest pain. No abdominal pain. She reports vomiting and diarrhea, but no episodes today. Patient also reports generalized weakness, but no syncope or falls. Patient denies any pain at this time. She states that she has oxygen at home, but does not have any. She does report history of COPD/asthma and according to chart, she also has history of psychiatric illness. She states she was a previous smoker 30 years ago. Moderate severity. No exacerbating or alleviating factors. PFSH Past Medical History Anemia: Yes Asthma: Yes Blood Disorders: No Bipolar Disorder: Yes Anxiety: Yes Depression: Yes (TAKING ZOLOFT) Cancer: No Cardiovascular Problems: Yes High Cholesterol: Yes Chemotherapy: No Chest Pain: Yes Congestive Heart Failure: No COPD: Yes Cerebrovascular Accident: Yes Diabetes: No Diminished Hearing: No Endocrine: Yes Gastrointestinal Disorders: Yes (IBS) GERD: Yes Genitourinary: No Headaches: Yes Hepatitis: Yes Hiatal Hernia: Yes Immune Disorder: No Musculoskeletal: Yes (SCOLIOSIS) Neurologic: Yes Psychiatric: Yes (BIPOLAR) Reproductive: No Respiratory: Yes Immunizations Current: No Myocardial Infarction: Yes Pneumonia: Yes Radiation Therapy: No Thyroid Disease: Yes Past Surgical History Gynecologic Surgery: Yes (BREAST TUMORS AND CYSTS BILATERAL REMOVED, OVARIAN CYSTS REMOVED) Hysterectomy: Yes Oral Surgery: Yes (TONSILECTOMY) Pacemaker: No Tonsillectomy: Yes Other Surgery: Yes (HYSTER,TUMORS,CYTS,ETC) Social History Alcohol Use: No Tobacco Use: No Substance Use: No Allergies-Medications (Allergen,Severity, Reaction): Coded Allergies: Sulfa (Sulfonamide Antibiotics) (Unverified Allergy, Severe, Nausea/ Vomiting, 05/11/17) pt. denies amitriptyline (Unverified Allergy, Severe, Rash, 05/11/17) clopidogrel (Unverified Allergy, Severe, BRUISE, 05/11/17) haloperidol (Unverified Allergy, Severe, RASH, 05/11/17) penicillin G (Unverified Allergy, Severe, Swelling, 05/11/17) thiothixene (Unverified Allergy, Severe, Rash, 05/11/17) ragweed pollen (Unverified Allergy, Mild, Sneezing, 05/11/17) Uncoded Allergies: QUINIGLUTE (Allergy, Severe, 03/31/11) Reported Meds & Prescriptions Reported Meds & Active Scripts Active Albuterol Neb (Albuterol Sulfate) 2.5 Mg/0.5 Ml Neb 2.5 Mg NEB Q6HR NEB Note: The Albuterol Sulfate Inhalation Solution is concentrated and must be diluted. Read complete instructions carefully before using. Proair Hfa 8.5 GM Inh (Albuterol Sulfate) 90 Mcg/Act Aer 2 Puff INH Q4-6H PRN 108 mcg/actuation Inspirease Drug Delivery (Spacer/Device For Mdi) 1 Ea Mis Ea .ROUTE DIRECTED Spiriva Handihaler (Tiotropium Inh) 18 Mcg Cap 18 Mcg INH DAILY 1 capsule = 18 mcg Levofloxacin 500 Mg Tablet 500 Mg PO DAILY Robitussin Childrens Cough Liq (Dextromethorphan HBr) 7.5 Mg/5 Ml Syp 7.5 Mg PO Q6H PRN Ferosul (Ferrous Sulfate) 325 Mg (65 Mg Iron) Tablet 325 Mg PO DAILY Walker Rolling/GetGo (Device) 1 Mis Mis Ea .ROUTE DIRECTED Nebulizer/Adult Mask (N/A) 1 Kit Kit Kit .ROUTE DIRECTED Oxygen (O2) Device Liter JUAN DAVID.CANULA CONTINUOUS Oxygen Concentrator Portable Gaseous 2 L/min via Nasal Canula Continuous For 99 months Etodolac 200 Mg Cap 200 Mg PO TID Take with food. Advair Diskus Inh (Fluticasone-Salmeterol Inh) 250-50 Mcg/Blist Aer 1 Puff INH BID Rinse mouth after use. Levothyroxine (Levothyroxine Sodium) 50 Mcg Tab 50 Mcg PO DAILY Reported Depakote ER (Divalproex Sodium) 500 Mg Marilee 1,500 Mg PO HS Zoloft (Sertraline HCl) 100 Mg Tab 100 Mg PO DAILY Simvastatin 40 Mg Tab 40 Mg PO HS Multiple Vitamin 1 Tab 1 Tab PO DAILY Aspirin 325 Mg Tab 325 Mg PO DAILY Invega Sustenna Inj (Paliperidone Palmitate) 156 Mg/Ml Inj 156 Mg IM Q28D Omeprazole 20 Mg Tab 40 Mg PO DAILY Fluticasone Nasal [place] 50 Mcg/Act Naspr 100 Mcg EACH NARE BID 50 mcg/spray Review of Systems Except as stated in HPI: all other systems reviewed are Neg Physical Exam Narrative GENERAL: Well-nourished, well-developed female patient, afebrile. SKIN: Focused skin assessment warm/dry. HEAD: Normocephalic. Atraumatic. EYES: No scleral icterus. No injection or drainage. NECK: Supple, trachea midline. No JVD or lymphadenopathy. CARDIOVASCULAR: Regular rate and rhythm without murmurs, gallops, or rubs. RESPIRATORY: Breath sounds equal bilaterally. No accessory muscle use. Lungs sounds with inspiratory and expiratory wheezes noted as well as scattered rhonchi. GASTROINTESTINAL: Abdomen soft, non-tender, nondistended. . MUSCULOSKELETAL: No cyanosis, or edema. BACK: Nontender without obvious deformity. No CVA tenderness. Data Data Last Documented VS Vital Signs Date Time Temp Pulse Resp B/P (MAP) Pulse Ox O2 Delivery O2 Flow Rate FiO2 05/15/17 13:30 94 2.00 05/15/17 13:30 Room Air 05/15/17 13:30 90 18 134/59 (84) 05/15/17 10:51 98.7 Orders Orders Complete Blood Count With Diff (05/15/17 10:55) Basic Metabolic Panel (Bmp) (05/15/17 10:55) Chest, Single Ap (05/15/17 10:55) Blood Culture (05/15/17 10:55) Iv Access Insert/Monitor (05/15/17 10:55) Ecg Monitoring (05/15/17 10:55) Oxygen Administration (05/15/17 10:55) Oximetry (05/15/17 10:55) Electrocardiogram (05/15/17 10:55) Act Partial Throm Time (Ptt) (05/15/17 11:53) Prothrombin Time / Inr (Pt) (05/15/17 11:53) Magnesium (Mg) (05/15/17 11:53) Ckmb (Isoenzyme) Profile (05/15/17 11:53) Troponin I (05/15/17 11:53) Urinalysis - C+S If Indicated (05/15/17 11:53) Electrocardiogram (05/15/17 11:53) Sodium Chloride 0.9% Flush (Ns Flush) (05/15/17 12:00) Albuterol-Ipratropium Neb (Duoneb Neb) (05/15/17 12:00) Lactic Acid Sepsis Protocol (05/15/17 11:53) Methylprednisolone So Succ Inj (Solumedr (05/15/17 12:00) Ceftriaxone Inj (Rocephin Inj) (05/15/17 12:45) Azithromycin Inj (Zithromax Inj) (05/15/17 12:45) Diet Heart Healthy (05/15/17 Lunch) Labs Laboratory Tests Test 05/15/17 13:10 05/15/17 14:05 White Blood Count 8.7 TH/MM3 Red Blood Count 2.79 MIL/MM3 Hemoglobin 9.4 GM/DL Hematocrit 26.9 % Mean Corpuscular Volume 96.4 FL Mean Corpuscular Hemoglobin 33.6 PG Mean Corpuscular Hemoglobin Concent 34.8 % Red Cell Distribution Width 17.0 % Platelet Count 323 TH/MM3 Mean Platelet Volume 7.5 FL Neutrophils (%) (Auto) 57.8 % Lymphocytes (%) (Auto) 35.6 % Monocytes (%) (Auto) 5.0 % Eosinophils (%) (Auto) 1.2 % Basophils (%) (Auto) 0.4 % Neutrophils # (Auto) 5.0 TH/MM3 Lymphocytes # (Auto) 3.1 TH/MM3 Monocytes # (Auto) 0.4 TH/MM3 Eosinophils # (Auto) 0.1 TH/MM3 Basophils # (Auto) 0.0 TH/MM3 CBC Comment DIFF FINAL Differential Comment Prothrombin Time 10.9 SEC Prothromb Time International Ratio 1.1 RATIO Activated Partial Thromboplast Time 28.1 SEC Blood Urea Nitrogen 17 MG/DL Creatinine 0.88 MG/DL Random Glucose 114 MG/DL Calcium Level 9.0 MG/DL Sodium Level 140 MEQ/L Potassium Level 4.0 MEQ/L Chloride Level 104 MEQ/L Carbon Dioxide Level 29.4 MEQ/L Anion Gap 7 MEQ/L Estimat Glomerular Filtration Rate 64 ML/MIN Lactic Acid Level 1.8 mmol/L Magnesium Level 1.8 MG/DL Total Creatine Kinase 14 U/L Troponin I 0.02 NG/ML Urine Color YELLOW Urine Turbidity CLEAR Urine pH 7.0 Urine Specific [place] 1.007 Urine Protein NEG mg/dL Urine Glucose (UA) NEG mg/dL Urine Ketones NEG mg/dL Urine Occult Blood NEG Urine Nitrite NEG Urine Bilirubin MOD Urine Urobilinogen LESS THAN 2.0 MG/DL Urine Leukocyte Esterase NEG Urine RBC 1 /hpf Urine WBC 2 /hpf Urine Squamous Epithelial Cells 1 /hpf Microscopic Urinalysis Comment CULT NOT INDICATED MDM Medical Decision Making Medical Screen Exam Complete: Yes Emergency Medical Condition: Yes Medical Record Reviewed: Yes Interpretation(s) Last Impressions Chest X-Ray 05/15/17 1055 Signed Impressions: Service Date/Time: Monday, May 15, 2017 11:12 - CONCLUSION: Patchy bilateral perihilar and basilar parenchymal opacities. Vikash Neri MD Differential Diagnosis Pneumonia versus COPD exacerbation versus bronchitis Narrative Course 66-year-old female presents to the emergency department for worsening cough and shortness of breath since being discharged on May 08. She also reports generalized weakness. EKG, CBC, BMP, magnesium, CK, troponin, lactic acid, UA, PTT, PT/INR, chest x-ray, blood cultures 2 are ordered and pending. Patient is given DuoNeb 3 and Solu-Medrol 125 mg IV. CBC shows anemia hemoglobin 9.4, hematocrit 26.9. BMP shows no acute abnormality. Lactic acid is 1.8. CK is 14. Troponin is 0.02. Magnesium is 1.8. Coags are unremarkable. UA shows no acute infection. Patient's oxygen saturation is 91 and 92% on 2 L O2 nasal cannula. She started on azithromycin 500 mg IV and Rocephin 1 g IV. Chest x-ray shows patchy bilateral perihilar and basilar parenchymal obesities. Residents accepted admission. Diagnosis Primary Impression: Pneumonia Qualified Codes: J18.9 - Pneumonia, unspecified organism Admitting Information Admitting Physician Requests: Admit Kristi Dick May 15, 2017 11:59
[2017-05-15] MEDS ORDERED: methylPREDNISolone SOD SUCC 125 MG/2 ML VIAL IV PUSH ONE (12:00)
[2017-05-15] MEDS ORDERED: SODIUM CHLORIDE 0.9% FLUSH 10 ML FLUSH IVF PRN (12:00)
[2017-05-15] MEDS: RESP: ALBUTEROL 2.5 MG/IPRATROPIUM 0.5 MG NEB (SCH) INH ×3 (12:13→23:52)
[2017-05-15] MEDS ORDERED: AZITHROMYCIN INJ 500 MG in SODIUM CHLOR 0.9% 250 ML INJ 250 ML IV ONE (12:45)
[2017-05-15] MEDS ORDERED: cefTRIAXone INJ 1,000 MG in SODIUM CHLORIDE 0.9% INJ 100 ML IV ONE (12:45)
[2017-05-15 13:30] VITALS: BP 134/59; PULSE 90; RESP 18; O2SAT 91; O2SAT 94
[2017-05-15 13:59] LABS: BASOPHIL % 0.4 % (0.0-2.0); EOSINOPHIL # 0.1 TH/MM3 (0-0.4); EOSINOPHIL % 1.2 % (0.0-4.0); HEMATOCRIT 26.9 % (35.0-46.0); HEMOGLOBIN 9.4 GM/DL (11.6-15.3); LYMPH % 35.6 % (9.0-44.0); LYMPHOCYTE # 3.1 TH/MM3 (1.0-4.8); MEAN CELL VOLUME 96.4 FL (80.0-100.0); MEAN CORPUSCULAR HEMOGLOBIN 33.6 PG (27.0-34.0); MEAN CORPUSCULAR HGB CONC 34.8 % (32.0-36.0); MEAN PLATELET VOLUME 7.5 FL (7.0-11.0); MONOCYTE # 0.4 TH/MM3 (0-0.9); NEUT % 57.8 % (16.0-70.0); PLATELET COUNT 323 TH/MM3 (150-450); RED BLOOD COUNT 2.79 MIL/MM3 (4.00-5.30); WHITE BLOOD COUNT 8.7 TH/MM3 (4.0-11.0)
[2017-05-15 14:08] LABS: INTERNATIONAL NORMALIZED RATIO 1.1 RATIO; PROTHROMBIN TIME - PATIENT 10.9 SEC (9.8-11.6)
[2017-05-15 14:16] LABS: BICARBONATE 29.4 MEQ/L (21.0-32.0); CREATININE 0.88 MG/DL (0.50-1.00)
[2017-05-15 14:17] LABS: MAGNESIUM 1.8 MG/DL (1.5-2.5)
[2017-05-15 14:21] LABS: TROPONIN I 0.02 NG/ML (0.02-0.05)
[2017-05-15 14:41] LABS: BILIRUBIN, URINE MOD (NEG); BLOOD, URINE NEG (NEG); GLUCOSE,URINE NEG (NEG); KETONE, URINE NEG (NEG); NITRITE,URINE NEG (NEG); SQUAMOUS EPITHELIAL CELL URINE 1 /hpf (0-5); URINE COLOR YELLOW (YELLW/STRAW); URINE LEUKOCYTE ESTERASE NEG (NEG)
--- NOTE | 2017-05-15 15:33 | HHI.HP ---
[facility] Service Family Medicine Primary Care Physician Blayne Us MD Admission Diagnosis pneumonia, failed outpatient therapy Diagnoses: International Travel<30 Days: No Contact w/Intl Traveler<30days: No Known Affected Area: No History of Present Illness Patient is a 66-year-old female with a past medical history that includes COPD, asthma, bipolar depression, and hypothyroidism, that presented to the [place] ED with chief complaints of productive cough, shortness of breath , and fatigue that have continued since her discharge from the hospital on where she was admitted for pneumonia. Patient states that she has not felt any better, in fact she has worsened since she left the hospital. Last night, she started feeling very short of breath which acutely worsened today. She states that her O2 saturation was 88% today, as was measured by her occupational therapist who comes to her home once a week. She denies fever but states that she has had chills and night sweats. She also has a sore throat, she lost her voice 3 weeks ago and has not regained it since then. Her cough is productive of brown, green, and yellow sputum. She has a few neighbors that have been sick but she does not really stay around them. She has no pets. Notably, the patient has a history of asthma and COPD, but she feels like this is a progression of pneumonia. Additionally, patient states that she has had a rash around her vaginal area that started during the last admission, but she did not report the rash to her medical team. Review of Systems Constitutional: COMPLAINS OF: Fatigue, Chills, Dizziness, Change in appetite ( eating less), Night Sweats Eyes: COMPLAINS OF: Blurred vision (chronic), DENIES: Vision loss Ears, nose, mouth, throat: COMPLAINS OF: Vertigo, Throat pain, Hoarseness, Ear Pain (ears hurt sometimes), Running Nose, Sinus Pain Respiratory: COMPLAINS OF: Cough (productive), Wheezing, Hemoptysis, Sputum production, Shortness of breath Cardiovascular: COMPLAINS OF: Chest pain (sometimes but mild), Palpitations Gastrointestinal: COMPLAINS OF: Diarrhea (once in a while - was watery and then thicker but still diarheal), Nausea, Vomiting, Difficulty Swallowing (pain inthe right neck with swallowing), DENIES: Abdominal pain, Constipation Genitourinary: DENIES: Dysuria Musculoskeletal: COMPLAINS OF: Joint pain (chronic) Integumentary: COMPLAINS OF: Pruritus, Rash Neurologic: COMPLAINS OF: Headache, Paresthesias (tingling in left hand, chronic), DENIES: Localized weakness Psychiatric: DENIES: Hallucinations, Suicidal Ideation Past Family Social History Past Medical History COPD Asthma Hypothyroidism Bipolar depression Past Surgical History Tonsillectomy Hysterectomy Unspecified "tumors on breasts" 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 Read complete instructions carefully before using. Proair Hfa 8.5 GM Inh (Albuterol Sulfate) 90 Mcg/Act Aer 2 Puff INH Q4-6H PRN 108 mcg/actuation Inspirease Drug Delivery (Spacer/Device For Mdi) 1 Ea Mis Ea .ROUTE DIRECTED Spiriva Handihaler (Tiotropium Inh) 18 Mcg Cap 18 Mcg INH DAILY 1 capsule = 18 mcg Robitussin Childrens Cough Liq (Dextromethorphan HBr) 7.5 Mg/5 Ml Syp 7.5 Mg PO Q6H PRN Ferosul (Ferrous Sulfate) 325 Mg (65 Mg Iron) Tablet 325 Mg PO DAILY Walker Rolling/GetGo (Device) 1 Mis Mis Ea .ROUTE DIRECTED Nebulizer/Adult Mask (N/A) 1 Kit Kit Kit .ROUTE DIRECTED Oxygen (O2) Device Liter JUAN DAVID.CANULA CONTINUOUS Oxygen Concentrator Portable Gaseous 2 L/min via Nasal Canula Continuous For 99 months Etodolac 200 Mg Cap 200 Mg PO TID Take with food. Advair Diskus Inh (Fluticasone-Salmeterol Inh) 250-50 Mcg/Blist Aer 1 Puff INH BID Rinse mouth after use. Levothyroxine (Levothyroxine Sodium) 50 Mcg Tab 50 Mcg PO DAILY Reported Depakote ER (Divalproex Sodium) 500 Mg Marilee 1,500 Mg PO HS Zoloft (Sertraline HCl) 100 Mg Tab 100 Mg PO DAILY Simvastatin 40 Mg Tab 40 Mg PO HS Multiple Vitamin 1 Tab 1 Tab PO DAILY Aspirin 325 Mg Tab 325 Mg PO DAILY Invega Sustenna Inj (Paliperidone Palmitate) 156 Mg/Ml Inj 156 Mg IM Q28D Omeprazole 20 Mg Tab 40 Mg PO DAILY Fluticasone Nasal Condon 50 Mcg/Act Naspr 100 Mcg EACH NARE BID 50 mcg/spray Allergies: Coded Allergies: Sulfa (Sulfonamide Antibiotics) (Unverified Allergy, Severe, Nausea/ Vomiting, 05/15/17) pt. denies amitriptyline (Unverified Allergy, Severe, Rash, 05/15/17) clopidogrel (Unverified Allergy, Severe, BRUISE, 05/15/17) haloperidol (Unverified Allergy, Severe, RASH, 05/15/17) penicillin G (Unverified Allergy, Severe, Swelling, 05/15/17) thiothixene (Unverified Allergy, Severe, Rash, 05/15/17) ragweed pollen (Unverified Allergy, Mild, Sneezing, 05/15/17) Uncoded Allergies: QUINIGLUTE (Allergy, Severe, 03/31/11) Family History Parents ; no reported PMH 2 brothers- , CAD (age unspecified) and unspecified cancer Unspecified DM, CAD, HTN, alcoholism, depression, tuberculosis, kidney disease, and unspecified cancer Social History Patient lives at [facility] at [facility]. . Patient gets assistance from [facility] staff, otherwise, she has been independent in her ADLs. She ambulates with a walker. 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 Patient denies alcohol or illicit drug use, she quit smoking 30 years ago Physical Exam Vital Signs Vital Signs Date Time Temp Pulse Resp B/P (MAP) Pulse Ox O2 Delivery O2 Flow Rate FiO2 05/15/17 13:30 94 2.00 05/15/17 13:30 91 Room Air 05/15/17 13:30 90 18 134/59 (84) 94 Nasal Cannula 2.00 05/15/17 10:51 98.7 99 16 114/72 (86) 94 Physical Exam GENERAL: This is a well-nourished, well-developed patient, in no apparent distress, nasal cannula in place on 2 L O2 SKIN: Erythematous macular rash with satellite lesions over bilateral external vulvar and inner thighs HEAD: Atraumatic. Normocephalic. Tenderness to palpation over posterior neck, chronic. Non-tender sinuses to palpation, but uncomfortable EYES: Pupils equal round and reactive. Extraocular motions intact. No scleral icterus. No injection or drainage. ENT: Nose without bleeding, purulent drainage or septal hematoma. Throat without erythema, tonsillar hypertrophy or exudate. Uvula midline. Airway patent. NECK: Trachea midline. No JVD or lymphadenopathy. Supple, nontender, no meningeal signs. CARDIOVASCULAR: Tachycardic rate and rhythm without murmurs, gallops, or rubs. RESPIRATORY: Clear to auscultation. Breath sounds equal bilaterally. Diffuse rhonchi and upper airway transmitted wheezing GASTROINTESTINAL: Abdomen soft, non-tender, nondistended. No hepato-splenomegaly , or palpable masses. No guarding. MUSCULOSKELETAL: Extremities without clubbing, cyanosis, or edema. No joint tenderness, effusion, or edema noted. No calf tenderness. Negative Homans sign bilaterally. NEUROLOGICAL: Awake and alert. Cranial nerves II through XII intact. Motor and sensory grossly within normal limits. 4/5 muscle strength in all muscle groups 2 /2 to fatigue. Normal speech. Slightly abnormal [id number] with mild circling on the right. Laboratory Laboratory Tests Test 05/15/17 13:10 05/15/17 14:05 White Blood Count 8.7 Red Blood Count 2.79 Hemoglobin 9.4 Hematocrit 26.9 Mean Corpuscular Volume 96.4 Mean Corpuscular Hemoglobin 33.6 Mean Corpuscular Hemoglobin Concent 34.8 Red Cell Distribution Width 17.0 Platelet Count 323 Mean Platelet Volume 7.5 Neutrophils (%) (Auto) 57.8 Lymphocytes (%) (Auto) 35.6 Monocytes (%) (Auto) 5.0 Eosinophils (%) (Auto) 1.2 Basophils (%) (Auto) 0.4 Neutrophils # (Auto) 5.0 Lymphocytes # (Auto) 3.1 Monocytes # (Auto) 0.4 Eosinophils # (Auto) 0.1 Basophils # (Auto) 0.0 CBC Comment DIFF FINAL Differential Comment Prothrombin Time 10.9 Prothromb Time International Ratio 1.1 Activated Partial Thromboplast Time 28.1 Blood Urea Nitrogen 17 Creatinine 0.88 Random Glucose 114 Calcium Level 9.0 Sodium Level 140 Potassium Level 4.0 Chloride Level 104 Carbon Dioxide Level 29.4 Anion Gap 7 Estimat Glomerular Filtration Rate 64 Lactic Acid Level 1.8 Magnesium Level 1.8 Total Creatine Kinase 14 Troponin I 0.02 Urine Color YELLOW Urine Turbidity CLEAR Urine pH 7.0 Urine Specific [place] 1.007 Urine Protein NEG Urine Glucose (UA) NEG Urine Ketones NEG Urine Occult Blood NEG Urine Nitrite NEG Urine Bilirubin MOD Urine Urobilinogen LESS THAN 2.0 Urine Leukocyte Esterase NEG Urine RBC 1 Urine WBC 2 Urine Squamous Epithelial Cells 1 Microscopic Urinalysis Comment CULT NOT INDICATED Date/Time Source Procedure Growth Status 05/15/17 13:10 Blood Peripheral Aerobic Blood Culture Pending Received 05/15/17 13:10 Blood Peripheral Anaerobic Blood Culture Pending Received Result Diagram: 05/15/17 1310 05/15/17 1310 Imaging Last Impressions Chest X-Ray 05/15/17 1055 Signed Impressions: Service Date/Time: Monday, May 15, 2017 11:12 - CONCLUSION: Patchy bilateral perihilar and basilar parenchymal opacities. Vikash Neri MD Course In the ED, patient received 125 mg IV of Solu-Medrol, 1 g of Rocephin IV, and 500 mg of azithromycin IV. A chest x-ray was performed which showed patchy bilateral perihilar and basilar parenchymal opacities. Patient states that she feels much better now after the IV steroids and breathing treatments. Caprini VTE Risk Assessment Caprini VTE Risk Assessment: Mod/High Risk (score >= 2) Caprini Risk Assessment Model Point Value = 1 Point Value = 2 Point Value = 3 Point Value = 5 Age 41-60 Minor surgery BMI > 25 kg/m2 Swollen legs Varicose veins or History of unexplained or recurrent spontaneous Oral contraceptives or hormone replacement Sepsis (< 1 month) Serious lung disease, including pneumonia (< 1 month) Abnormal pulmonary function Acute myocardial infarction Congestive heart failure (< 1 month) History of inflammatory bowel disease Medical patient at bed rest Age 61-74 Arthroscopic surgery Major open surgery (> 45 min) Laparoscopic surgery (> 45 min) Malignancy Confined to bed (> 72 hours) Immobilizing plaster cast Central venous access Age >= 75 History of VTE Family history of VTE Factor V Leiden Prothrombin [id number] Lupus anticoagulant Anticardiolipin antibodies Elevated serum homocysteine Heparin-induced thrombocytopenia Other congenital or acquired thrombophilia Stroke (< 1 month) Elective arthroplasty Hip, pelvis, or leg fracture Acute spinal cord injury (< 1 month) Prophylaxis Regimen Total Risk Factor Score Risk Level Prophylaxis Regimen 0-1 Low Early ambulation 2 Moderate Order ONE of the following: *Sequential Compression Device (SCD) *Heparin 5000 units SQ BID 3-4 Higher Order ONE of the following medications: *Heparin 5000 units SQ TID *Enoxaparin/Lovenox 40 mg SQ daily (WT < 150 kg, CrCl > 30 mL/min) *Enoxaparin/Lovenox 30 mg SQ daily (WT < 150 kg, CrCl > 10-29 mL/min) *Enoxaparin/Lovenox 30 mg SQ BID (WT < 150 kg, CrCl > 30 mL/min) AND/OR *Sequential Compression Device (SCD) 5 or more Highest Order ONE of the following medications: *Heparin 5000 units SQ TID (Preferred with Epidurals) *Enoxaparin/Lovenox 40 mg SQ daily (WT < 150 kg, CrCl > 30 mL/min) *Enoxaparin/Lovenox 30 mg SQ daily (WT < 150 kg, CrCl > 10-29 mL/min) *Enoxaparin/Lovenox 30 mg SQ BID (WT < 150 kg, CrCl > 30 mL/min) AND *Sequential Compression Device (SCD) Assessment and Plan Assessment and Plan 66-year-old female with a past medical history that includes COPD, asthma, hypothyroidism, and bipolar depression presents with chief complaints of shortness of breath, productive cough, and fatigue. She was recently discharged from the hospital for pneumonia and states that she has worsened since discharge. She will be admitted for pneumonia and will be managed with IV antibiotics, steroids, and breathing treatments. Code Status Full code. Power of associate attorney is Moira Andujar, documentation available for review if needed. Discussed Condition With Seen and examined with Arnulfo Diamond, MS4. Will discuss with Dr. Shahid. Problem List: (1) Pneumonia ICD Codes: J18.9 - Pneumonia Status: Acute Plan: -Afebrile on admission with temperature of 98.7F, WBC within normal limits at 8.7 with lactic acid WNL at 1.8; does not meet sirs criteria at this time -Tachycardic at 99 with O2 saturation 94% on room air -Currently on 2 L by nasal cannula with saturations at 94% -CXR shows patchy bilateral perihilar and basilar parenchymal opacities suspected to be residual disease from previous admission -Notably, CTA performed on 05/02/17 showed moderate lower lobe predominant centrilobular emphysema with interval development of ground glass and interstitial opacities most predominantly in the lower lobes as well as new mediastinal and hilar adenopathy, which was suspected to be reactive/infectious in etiology -Influenza A/B antigen pending -Sputum Gram stain and culture pending -Pneumococcal and Legionella antigens pending -Respiratory panel pending -Troponin 1 negative -Due to penicillin allergy, will treat with aztreonam 2 g IV every 8 hours and Levaquin 750 mg by mouth daily -Patient just completed 6 days of Levaquin 500 mg by mouth daily -Prednisone 40 mg daily for bronchial inflammation -DuoNeb scheduled every 4 hours -Albuterol nebulizer prn q4h -Guaifenesin with codeine for cough -Tessalon pearls for cough -Magic mouthwash swish and swallow for sore throat -Incentive spirometry (2) COPD (chronic obstructive pulmonary disease) ICD Codes: J44.9 - COPD (chronic obstructive pulmonary disease) Status: Acute Plan: -Possible COPD exacerbation -Oral steroids as above -Duonebs and albuterol nebulizer as above -Chest PT every 4 hours (3) Asthma ICD Codes: J45.909 - Unspecified asthma, uncomplicated Plan: -Continue maintenance Advair -Albuterol inhaler for rescue -Duonebs and albuterol nebulizer as needed (4) Vulval candidiasis ICD Codes: B37.3 - Candidiasis of vulva and vagina Plan: -Nystatin ointment every 12 hours (5) Bipolar depression ICD Codes: F31.30 - Bipolar disorder, current episode depressed, mild or moderate severity, unspecified Plan: -Continue sertraline 100 mg by mouth daily -Continue Invega Sustenna injection on 56 mg IM every 28 days (6) GERD (gastroesophageal reflux disease) ICD Codes: K21.9 - Gastro-esophageal reflux disease without esophagitis Plan: -Protonix 40 mg by mouth daily (7) Hypothyroidism ICD Codes: E03.9 - Hypothyroidism, unspecified Plan: -Continue levothyroxine 50 g by mouth daily at 6 AM (8) Hyperlipidemia ICD Codes: E78.5 - Hyperlipidemia, unspecified Plan: -Continue pravastatin 80 mg by mouth at bedtime (9) Anemia ICD Codes: D64.9 - Anemia, unspecified Status: Chronic Plan: -H/H 9.4/26.9, improved compared to 8.1/23 on 1/2/18 -Previous iron studies performed on 05/08/17 was mostly normal except for a TIBC of 188 (250-450) -Continue ferrous sulfate 325 mg by mouth daily (10) FEN/DVT PPX/GI PPX/Nursing Orders Plan: Fluids: Oral fluids only Electrolytes: Will monitor and replace as needed Nutrition: Heart-healthy diet DVT Prophylaxis: Lovenox 40mg subcutaneous daily GI Prophylaxis: Protonix 40mg PO daily PRN Medications Tylenol 650 mg by mouth every 4 hours when necessary pain 1-10 or temperature greater than 100.4F Zofran 4 mg IV push every 6 hours when necessary nausea vomiting Vasotec 1.25 mg IV PRN SBP greater than 170 or DBP greater than 100 -Vitals Q4h -Monitor I's and O's -Fall precautions -Activity bed rest -Supplemental O2, titrate as needed -PT to assist with ambulation and strength training -Case management consult to assist with discharge disposition Problem Qualifiers (1) Pneumonia: Qualified Codes: J18.9 - Pneumonia, unspecified organism Jaqueline Whittaker MD R2 May 15, 2017 15:33
[2017-05-15] MEDS ORDERED: PALIPERIDONE PALMITATE 156 MG/ML SYRINGE IM PRN (16:00)
[2017-05-15] MEDS ORDERED: ONDANSETRON HCL 4 MG/2 ML VIAL IV PUSH PRN (17:00)
[2017-05-15] MEDS ORDERED: SODIUM CHLORIDE 0.9% FLUSH 10 ML FLUSH IV FLUSH PRN (17:00)
[2017-05-15] MEDS ORDERED: ACETAMINOPHEN 325 MG TAB PO PRN (17:00)
[2017-05-15] MEDS ORDERED: ENALAPRILAT 1.25 MG/ML VIAL IV PUSH PRN (17:30)
[2017-05-15] MEDS ORDERED: RESP: ALBUTEROL 2.5 MG/3 ML NEB (PRN) NEB (18:30)
[2017-05-15] MEDS ORDERED: ALBUTEROL SULFATE 90 MCG/ACT HFA 8 GM INHALER INH PRN (18:45)
[2017-05-15 20:00] VITALS: BP 127/59; PULSE 88; RESP 16; TEMP 96.4; O2SAT 95
[2017-05-15] MEDS: PRAVASTATIN SOD 80 MG TAB PO SCH (20:49)
[2017-05-15] MEDS: guaiFENesin/CODEINE SYRUP 200 MG/20 MG/10 ML CUP PO PRN (20:50)
[2017-05-15] MEDS: ENOXAPARIN SODIUM 40 MG/0.4 ML SYRINGE SQ SCH (20:50)
[2017-05-15] MEDS: DIVALPROEX SODIUM E.R. 500 MG TAB PO SCH (20:50)
[2017-05-15] MEDS: FLUTICASONE PROPIONATE 50 MCG/ACT 16 GM NASAL SPRAY EACH NARE SCH (20:51)
[2017-05-15] MEDS: BUDESONIDE-FORMOTEROL 160/4.5 MCG INHALER INH SCH (20:52)
[2017-05-15] MEDS: NYSTATIN 100,000 U/GM OINT 15 GM TUBE TOPICAL SCH (20:55)
[2017-05-15] MEDS: NYSTAT/DIPHENHY/LIDO MOUTHWASH (Adult) 120ML SWISH-SWAL SCH (20:55)
[2017-05-15] MEDS: SODIUM CHLORIDE 0.9% FLUSH 10 ML FLUSH IV FLUSH SCH (20:58)
[2017-05-15] MEDS ORDERED: predniSONE 20 MG TAB PO ONE (21:00)
[2017-05-15 21:30] VITALS: O2SAT 92
[2017-05-16] VITALS (7 sets, daily range): BP systolic 118–139; BP diastolic 50–66; PULSE 91–105; RESP 16–19; TEMP 95.8–97; O2SAT 94–99
[2017-05-16] MEDS: RESP: ALBUTEROL 2.5 MG/IPRATROPIUM 0.5 MG NEB (SCH) INH ×6 (03:05→23:44)
[2017-05-16] MEDS: LEVOTHYROXINE SODIUM 50 MCG TAB PO SCH (05:16)
[2017-05-16] MEDS: guaiFENesin/CODEINE SYRUP 200 MG/20 MG/10 ML CUP PO PRN ×3 (05:20→21:28)
--- NOTE | 2017-05-16 08:51 | RADRPT ---
EXAM DATE/TIME: 05/16/2017 08:38 [place] COMPARISON: No previous studies available for comparison. INDICATIONS : Evaluate pneumonia. MEDICAL HISTORY : Cardiovascular disease. SURGICAL HISTORY : None. ENCOUNTER: Subsequent ACUITY: 1 day PAIN SCORE: 0/10 LOCATION: Bilateral chest FINDINGS: PA and lateral views of the chest demonstrate the lungs to be symmetrically aerated without evidence of mass, infiltrate or effusion. The cardiomediastinal contours are unremarkable. Osseous structure s are intact. CONCLUSION: No acute disease. Nj Briones MD on May 16, 2017 at 8:48 Board Certified Radiologist. This report was verified electronically.
[2017-05-16] MEDS ORDERED: ASPIRIN 325 MG TAB PO SCH (09:00)
[2017-05-16 09:16] LABS: AUTOMATED NEUTROPHIL # 8.5 TH/MM3 (1.8-7.7); HEMATOCRIT 24.7 % (35.0-46.0); HEMOGLOBIN 8.6 GM/DL (11.6-15.3); LYMPH % 7.8 % (9.0-44.0); LYMPHOCYTE # 0.7 TH/MM3 (1.0-4.8); MEAN CELL VOLUME 95.7 FL (80.0-100.0); MEAN CORPUSCULAR HEMOGLOBIN 33.3 PG (27.0-34.0); MEAN CORPUSCULAR HGB CONC 34.8 % (32.0-36.0); MONO % 1.3 % (0.0-8.0); MONOCYTE # 0.1 TH/MM3 (0-0.9); NEUT % 90.9 % (16.0-70.0); PLATELET COUNT 290 TH/MM3 (150-450); RED BLOOD COUNT 2.58 MIL/MM3 (4.00-5.30); RED CELL DISTRIBUTION WIDTH 17.2 % (11.6-17.2); WHITE BLOOD COUNT 9.4 TH/MM3 (4.0-11.0)
[2017-05-16] MEDS: FLUTICASONE PROPIONATE 50 MCG/ACT 16 GM NASAL SPRAY EACH NARE SCH ×2 (09:17→21:29)
[2017-05-16] MEDS: NYSTATIN 100,000 U/GM OINT 15 GM TUBE TOPICAL SCH ×2 (09:18→21:30)
[2017-05-16] MEDS: BUDESONIDE-FORMOTEROL 160/4.5 MCG INHALER INH SCH ×2 (09:18→21:29)
[2017-05-16] MEDS: NYSTAT/DIPHENHY/LIDO MOUTHWASH (Adult) 120ML SWISH-SWAL SCH ×4 (09:19→21:28)
[2017-05-16] MEDS: SERTRALINE HCL 100 MG TAB PO SCH (09:20)
[2017-05-16] MEDS: FERROUS SULFATE 325 MG (65 MG ELEMENTAL IRON) TAB PO SCH (09:20)
[2017-05-16] MEDS: ASPIRIN 81 MG CHEW TAB PO SCH (09:20)
[2017-05-16] MEDS: PANTOPRAZOLE SOD 40 MG DELAYED RELEASE TAB PO SCH (09:20)
[2017-05-16] MEDS: MULTIVITAMIN TAB PO SCH (09:20)
[2017-05-16] MEDS: predniSONE 20 MG TAB PO SCH (09:20)
[2017-05-16] MEDS: SODIUM CHLORIDE 0.9% FLUSH 10 ML FLUSH IV FLUSH SCH ×2 (09:23→21:44)
[2017-05-16 09:41] LABS: BICARBONATE 27.7 MEQ/L (21.0-32.0); CALCIUM 9.5 MG/DL (8.5-10.1); CREATININE 0.89 MG/DL (0.50-1.00)
[2017-05-16 09:59] LABS: BANDS 20 % (0-6); LYMPHOCYTES 6 % (9-44); METAMYELOCYTES 2 % (0-1); MONOCYTES 1 % (0-8); NEUTROPHIL # MANUAL DIFF 8.7 TH/MM3 (1.8-7.7); OVALOCYTES 1+ (NORMAL); POLYS (SEG NEUTROPHILS) 71 % (16-70)
--- NOTE | 2017-05-16 10:22 | HHI.FPPN ---
Subjective Remarks No acute events overnight. Vital signs unremarkable except for O2 at 92% on nasal cannula 2-3L this morning. She feels like her respiratory status has significantly improved. Continues to have a sore throat and feel very fatigued. Patient also complaining of vaginal yeast infection. Denies any chest pain. (Lidia Abbott MD, R3) Objective Vitals Vital Signs Date Time Temp Pulse Resp B/P (MAP) Pulse Ox O2 Delivery O2 Flow Rate FiO2 05/16/17 08:19 99 Nasal Cannula 3.00 05/16/17 08:00 95.8 92 18 133/66 (88) 99 05/16/17 00:00 96.8 99 16 119/59 (79) 97 05/15/17 21:30 92 Nasal Cannula 3.00 05/15/17 20:00 96.4 88 16 127/59 (81) 95 05/15/17 13:30 94 2.00 05/15/17 13:30 91 Room Air 05/15/17 13:30 90 18 134/59 (84) 94 Nasal Cannula 2.00 05/15/17 10:51 98.7 99 16 114/72 (86) 94 I/O 05/15/17 05/15/17 05/15/17 05/16/17 05/16/17 05/16/17 07:00 15:00 23:00 07:00 15:00 23:00 Intake Total 350 ml 480 ml Output Total 500 ml Balance 350 ml -20 ml Intake Oral 480 ml IV Total 350 ml Output Urine Total 500 ml # Bowel Movements 0 (Lidia Abbott MD, R3) Result Diagram: 05/16/17 0656 05/16/17 0656 Objective Remarks GEN: Well-developed, well-nourished patient. No acute distress. ENT: Moist mucous membranes. No evidence of candidiasis, sores. No tonsillar exudate or erythema. Voice is very hoarse. CV: Regular rate and rhythm without obvious murmurs LUNGS: Normal respiratory effort. Bibasilar crackles present but with good air movement. No accessory muscle use. Nasal cannula in place. GI: Nondistended. NEURO/PSYCH: Awake, alert. Appropriate insight and judgment. Normal speech (Lidia Abbott MD, R3) A/P Assessment and Plan 66-year-old female with a past medical history that includes COPD, asthma, hypothyroidism, and bipolar depression who was admitted due to fatigue, SOB, productive cough. Patient was previously discharged from hospital 05/08/17 for pneumonia. She was discharged on Levaquin but did receive steroids while in the hospital. Discharge Planning 1-2days but may need rehabilitation as this was the prior recommendation at her last hospitalization due to generalized weakness. (Patient did decline rehabilitation at that time) * PT consulted sdw Dr. Yanez ([facility] Shahid MD, R3) Attending Attestation Medical rounds were performed with Dr Shahid, Patient was interviewed and examined, Agree with the contents of this note, See Assessment and Plan (Pradeep Yanez MD) Problem List: (1) COPD (chronic obstructive pulmonary disease) ICD Codes: J44.9 - COPD (chronic obstructive pulmonary disease) Status: Acute Plan: History significant for recent hospital admission with discharge from 05/08. At that time she was treated for pneumonia with Levaquin, aztreonam and steroids. On admission she was afebrile with no leukocytosis. Repeat CXR on 02/21 was unremarkable for acute disease. Suspect symptoms of continued cough, SOB, and fatigue are related to COPD exacerbation. -No leukocytosis but significant increase in bands, will closely monitor -Blood cultures pending -Legionella, strep pneumo pending -sputum culture pending -wean off O2 as tolerated, will need walk test as possible home O2 -incentive spirometry Imaging: * CXR 05/15/17: patchy bilateral perihilar and basilar parenchymal opacities * CXR 05/16/17: No acute disease Medications: * Aztreonam 2g q8 (05/15- * Levaquin 750mg daily (05/15- * Prednisone 40mg daily * Albuterol and duonebs * Symbicort * Flonase * Robitussin AC (2) Pneumonia ICD Codes: J18.9 - Pneumonia Status: Acute Plan: Hx of recent PNA. Possible failed treatment on discharge after recent hospitalization. See more detailed plan above. (3) Vulval candidiasis ICD Codes: B37.3 - Candidiasis of vulva and vagina Plan: -Nystatin ointment every 12 hours (4) Bipolar depression ICD Codes: F31.30 - Bipolar disorder, current episode depressed, mild or moderate severity, unspecified Plan: -Continue sertraline 100 mg by mouth daily -continue home depakote 1500mg qHS -Continue Invega Sustenna injection on 56 mg IM every 28 days * pt unsure of when she is due for her next shot. Will hold until pt's case assistant has been contacted. (5) Fatigue ICD Codes: R53.83 - Other fatigue Status: Acute Plan: Likely related to recent hospitalization but will also check Depakote level to make sure that this is not contributing to some of her symptoms. * valproic acid level pending (6) Anemia ICD Codes: D64.9 - Anemia, unspecified Status: Chronic Plan: Hx of anemia. Hgb current around her baseline of about 8-9. -Previous iron studies performed on 05/08/17 was mostly normal except for a TIBC of 188 (250-450) -Continue ferrous sulfate 325 mg by mouth daily (7) FEN/DVT PPX/GI PPX/Nursing Orders Plan: Fluids: Oral fluids only Electrolytes: Will monitor and replace as needed Nutrition: Heart-healthy diet DVT Prophylaxis: Lovenox 40mg subcutaneous daily GI Prophylaxis: Protonix 40mg PO daily (hx of GERD, plus steroid use) Chronic conditions: * Hypothyroidism: continue home synthroid 50mcg daily * HLD: continue home statin (Lidia Abbott MD, R3) Problem Qualifiers (1) Pneumonia: Qualified Codes: J18.9 - Pneumonia, unspecified organism Lidia Abbott MD, R3 May 16, 2017 10:22 Pradeep Yanez MD May 16, 2017 14:53
[2017-05-16] MEDS: BENZONATATE 100 MG CAP PO PRN (13:13)
[2017-05-16] MEDS: CLOTRIMAZOLE 10 MG TROCHE BUCCAL SCH ×3 (13:43→21:27)
[2017-05-16] MEDS: ENOXAPARIN SODIUM 40 MG/0.4 ML SYRINGE SQ SCH (17:09)
[2017-05-16] MEDS: LEVOFLOXACIN 750 MG TAB PO SCH (17:09)
[2017-05-16] MEDS: PRAVASTATIN SOD 80 MG TAB PO SCH (21:27)
[2017-05-16] MEDS: DIVALPROEX SODIUM E.R. 500 MG TAB PO SCH (21:27)
[2017-05-16] MEDS: AZTREONAM INJ 2,000 MG in SODIUM CHLORIDE 0.9% INJ 100 ML IV SCH (21:44)
--- NOTE | 2017-05-16 22:09 | EKG ---
Date Performed: 05/15/2017 Time Performed: 13:40:48 PTAGE: 66 years EKG: Sinus rhythm WITH SHORT OK INTERVAL BORDERLINE ECG PREVIOUS TRACING : 05/02/2017 11.18 Compared to prior tracing no significant change DOCTOR: Selene Fu Interpretating Date/Time 05/16/2017 22:09:47
[2017-05-17] VITALS (7 sets, daily range): BP systolic 113–128; BP diastolic 56–68; PULSE 77–101; RESP 15–17; TEMP 96.8–97.7; O2SAT 94–99
[2017-05-17] MEDS: RESP: ALBUTEROL 2.5 MG/IPRATROPIUM 0.5 MG NEB (SCH) INH ×5 (03:40→19:34)
[2017-05-17] MEDS: LEVOTHYROXINE SODIUM 50 MCG TAB PO SCH (05:20)
[2017-05-17] MEDS: guaiFENesin/CODEINE SYRUP 200 MG/20 MG/10 ML CUP PO PRN ×2 (05:21→20:19)
[2017-05-17] MEDS: BENZONATATE 100 MG CAP PO PRN ×2 (05:21→20:27)
[2017-05-17] MEDS: AZTREONAM INJ 2,000 MG in SODIUM CHLORIDE 0.9% INJ 100 ML IV SCH ×3 (05:28→20:18)
[2017-05-17 09:11] LABS: BICARBONATE 29.4 MEQ/L (21.0-32.0); CALCIUM 9.1 MG/DL (8.5-10.1); CREATININE 0.88 MG/DL (0.50-1.00)
[2017-05-17 09:21] LABS: AUTOMATED NEUTROPHIL # 8.2 TH/MM3 (1.8-7.7); BASOPHIL % 0.3 % (0.0-2.0); HEMATOCRIT 23.6 % (35.0-46.0); HEMOGLOBIN 8.2 GM/DL (11.6-15.3); LYMPH % 20.1 % (9.0-44.0); LYMPHOCYTE # 2.2 TH/MM3 (1.0-4.8); MEAN CELL VOLUME 94.2 FL (80.0-100.0); MEAN CORPUSCULAR HEMOGLOBIN 32.8 PG (27.0-34.0); MEAN CORPUSCULAR HGB CONC 34.8 % (32.0-36.0); MEAN PLATELET VOLUME 7.8 FL (7.0-11.0); MONO % 4.6 % (0.0-8.0); MONOCYTE # 0.5 TH/MM3 (0-0.9); PLATELET COUNT 280 TH/MM3 (150-450); RED CELL DISTRIBUTION WIDTH 17.3 % (11.6-17.2)
[2017-05-17 10:08] LABS: BANDS 4 % (0-6); LYMPHOCYTES 9 % (9-44); METAMYELOCYTES 1 % (0-1); MONOCYTES 3 % (0-8); MYELOCYTES 1 % (0-0); NEUTROPHIL # MANUAL DIFF 9.7 TH/MM3 (1.8-7.7); POLYS (SEG NEUTROPHILS) 82 % (16-70)
[2017-05-17 10:09] LABS: POLYCHROMASIA 2.3 % (0.0-1.9)
[2017-05-17] MEDS: FERROUS SULFATE 325 MG (65 MG ELEMENTAL IRON) TAB PO SCH (10:24)
[2017-05-17] MEDS: SERTRALINE HCL 100 MG TAB PO SCH (10:24)
[2017-05-17] MEDS: ASPIRIN 81 MG CHEW TAB PO SCH (10:24)
[2017-05-17] MEDS: SODIUM CHLORIDE 0.9% FLUSH 10 ML FLUSH IV FLUSH SCH ×2 (10:24→20:24)
[2017-05-17] MEDS: PANTOPRAZOLE SOD 40 MG DELAYED RELEASE TAB PO SCH (10:24)
[2017-05-17] MEDS: predniSONE 20 MG TAB PO SCH (10:24)
[2017-05-17] MEDS: MULTIVITAMIN TAB PO SCH (10:24)
[2017-05-17] MEDS: CLOTRIMAZOLE 10 MG TROCHE BUCCAL SCH ×4 (10:24→20:16)
[2017-05-17] MEDS: BUDESONIDE-FORMOTEROL 160/4.5 MCG INHALER INH SCH ×2 (10:25→20:20)
[2017-05-17] MEDS: FLUTICASONE PROPIONATE 50 MCG/ACT 16 GM NASAL SPRAY EACH NARE SCH ×2 (10:25→20:21)
[2017-05-17] MEDS: NYSTAT/DIPHENHY/LIDO MOUTHWASH (Adult) 120ML SWISH-SWAL SCH ×4 (10:25→20:18)
[2017-05-17] MEDS: NYSTATIN 100,000 U/GM OINT 15 GM TUBE TOPICAL SCH ×2 (10:25→20:20)
--- NOTE | 2017-05-17 11:58 | HHI.FPPN ---
Subjective Remarks No acute events overnight. Vital signs unremarkable. Patient does report increased shakiness after albuterol treatments. Patient also complains of continued sore throat and fatigue but with improving respiratory status. She also reports nausea but without vomiting. (Lidia Abbott MD, R3) Objective Vitals Vital Signs Date Time Temp Pulse Resp B/P (MAP) Pulse Ox O2 Delivery O2 Flow Rate FiO2 05/17/17 09:36 98 Nasal Cannula 3.00 05/17/17 08:00 96.8 81 16 115/56 (75) 97 05/17/17 02:02 Nasal Cannula 2.00 05/17/17 00:00 96.9 100 17 113/56 (75) 94 05/16/17 20:00 96.1 105 18 139/56 (83) 98 05/16/17 16:02 94 Nasal Cannula 2.00 05/16/17 16:00 97.0 97 18 118/50 (72) 95 05/16/17 12:00 96.3 91 19 118/56 (76) 96 I/O 05/16/17 05/16/17 05/16/17 05/17/17 05/17/17 05/17/17 07:00 15:00 23:00 07:00 15:00 23:00 Intake Total 480 ml 870 ml 680 ml 100 ml Output Total 500 ml Balance -20 ml 870 ml 680 ml 100 ml Intake Oral 480 ml 770 ml 680 ml IV Total 100 ml 100 ml Output Urine Total 500 ml # Voids 5 2 # Bowel Movements 0 0 1 (Lidia Abbott MD, R3) Result Diagram: 05/17/1716 05/17/17 0713 Objective Remarks GEN: Well-developed, well-nourished patient. No acute distress. CV: Regular rate and rhythm without obvious murmurs LUNGS: Normal respiratory effort. Bibasilar crackles present but with good air movement. No accessory muscle use. GI: Soft, nontender, nondistended. No palpable masses. EXT: No edema. No calf tenderness. NEURO/PSYCH: Awake, alert. Appropriate insight and judgment. Normal speech (Lidia Abbott MD, R3) A/P Assessment and Plan 66-year-old female with a past medical history that includes COPD, asthma, hypothyroidism, and bipolar depression who was admitted due to fatigue, SOB, productive cough. Patient was previously discharged from hospital 05/08/17 for pneumonia. She was discharged on Levaquin but did receive steroids while in the hospital. Discharge Planning Possibly tomorrow pending continued improvement in respiratory status. * PT consulted: will need home health upon discharge sdw Dr. Yanez (Lidia Abbott MD, R3) Attending Attestation Medical rounds were performed with Dr Lidia Abbott, patient seen and examined, Agree with documentation, See Orders (Pradeep Yanez MD) Problem List: (1) COPD (chronic obstructive pulmonary disease) ICD Codes: J44.9 - COPD (chronic obstructive pulmonary disease) Status: Acute Plan: History significant for recent hospital admission with discharge from 05/08. At that time she was treated for pneumonia with Levaquin, aztreonam and steroids. On admission she was afebrile with no leukocytosis. Repeat CXR on 02/21 was unremarkable for acute disease. Suspect symptoms of continued cough, SOB, and fatigue are related to COPD exacerbation. -No leukocytosis, bands improved. -Blood cultures negative x2days -Legionella, strep pneumo negative -sputum culture normal pat -wean off O2 as tolerated, will need walk test as possible home O2 -incentive spirometry Imaging: * CXR 05/15/17: patchy bilateral perihilar and basilar parenchymal opacities * CXR 05/16/17: No acute disease Medications: * Aztreonam 2g q8 (05/15- * Levaquin 750mg daily (05/15- * Prednisone 40mg daily * Albuterol and duonebs * Symbicort * Flonase * Robitussin AC (2) Pneumonia ICD Codes: J18.9 - Pneumonia Status: Acute Plan: Hx of recent PNA. Possible failed treatment on discharge after recent hospitalization. See more detailed plan above. (3) Vulval candidiasis ICD Codes: B37.3 - Candidiasis of vulva and vagina Status: Acute Plan: -Nystatin ointment every 12 hours (4) Bipolar depression ICD Codes: F31.30 - Bipolar disorder, current episode depressed, mild or moderate severity, unspecified Status: Chronic Plan: -Continue sertraline 100 mg by mouth daily -continue home depakote 1500mg qHS -Continue Invega Sustenna injection on 56 mg IM every 28 days * pt unsure of when she is due for her next shot. Will hold until pt's porter sample case has been contacted. (5) Fatigue ICD Codes: R53.83 - Other fatigue Status: Acute Plan: Likely related to recent hospitalization but will also check Depakote level to make sure that this is not contributing to some of her symptoms. * valproic acid level appropriate (6) Anemia ICD Codes: D64.9 - Anemia, unspecified Status: Chronic Plan: Hx of anemia. Hgb current around her baseline of about 8-9. -Previous iron studies performed on 05/08/17 was mostly normal except for a TIBC of 188 (250-450) -Continue ferrous sulfate 325 mg by mouth daily (7) FEN/DVT PPX/GI PPX/Nursing Orders Plan: Fluids: Oral fluids only Electrolytes: Will monitor and replace as needed Nutrition: Heart-healthy diet DVT Prophylaxis: Lovenox 40mg subcutaneous daily GI Prophylaxis: Protonix 40mg PO daily (hx of GERD, plus steroid use) Chronic conditions: * Hypothyroidism: continue home synthroid 50mcg daily * HLD: continue home statin (Lidia Abbott MD, R3) Problem Qualifiers (1) Pneumonia: Qualified Codes: J18.9 - Pneumonia, unspecified organism Lidia Abbott MD, R3 May 17, 2017 11:58 Pradeep Ynaez MD May 18, 2017 14:10
[2017-05-17] MEDS: BENZOCAINE-MENTHOL (SUGAR FREE) 15 MG-3.6 MG LOZENGE BUCCAL PRN ×2 (12:51→20:19)
[2017-05-17] MEDS: LEVOFLOXACIN 750 MG TAB PO SCH (17:27)
[2017-05-17] MEDS: ENOXAPARIN SODIUM 40 MG/0.4 ML SYRINGE SQ SCH (17:28)
[2017-05-17] MEDS: PRAVASTATIN SOD 80 MG TAB PO SCH (20:15)
[2017-05-17] MEDS: DIVALPROEX SODIUM E.R. 500 MG TAB PO SCH (20:15)
[2017-05-17] MEDS: PSYLLIUM HUSK SF 3.4 GM in 5.8 GM PKT PO SCH (20:17)
[2017-05-18] VITALS: BP 129/52; PULSE 101; RESP 16; TEMP 98.6; O2SAT 98
[2017-05-18] MEDS: RESP: ALBUTEROL 2.5 MG/IPRATROPIUM 0.5 MG NEB (SCH) INH ×5 (00:31→16:21)
[2017-05-18] MEDS: BENZOCAINE-MENTHOL (SUGAR FREE) 15 MG-3.6 MG LOZENGE BUCCAL PRN (05:06)
[2017-05-18] MEDS: BENZONATATE 100 MG CAP PO PRN ×2 (05:07→12:00)
[2017-05-18] MEDS: LEVOTHYROXINE SODIUM 50 MCG TAB PO SCH (05:07)
[2017-05-18] MEDS: AZTREONAM INJ 2,000 MG in SODIUM CHLORIDE 0.9% INJ 100 ML IV SCH ×2 (05:07→12:00)
[2017-05-18] MEDS: guaiFENesin/CODEINE SYRUP 200 MG/20 MG/10 ML CUP PO PRN (05:13)
[2017-05-18 08:00] VITALS: BP 121/59; PULSE 78; RESP 15; TEMP 97.6; O2SAT 97
[2017-05-18 08:08] VITALS: O2SAT 95
[2017-05-18] MEDS: NYSTAT/DIPHENHY/LIDO MOUTHWASH (Adult) 120ML SWISH-SWAL SCH ×2 (09:00→13:00)
[2017-05-18] MEDS: PSYLLIUM HUSK SF 3.4 GM in 5.8 GM PKT PO SCH (09:00)
[2017-05-18] MEDS: NYSTATIN 100,000 U/GM OINT 15 GM TUBE TOPICAL SCH (09:00)
[2017-05-18] MEDS: ASPIRIN 81 MG CHEW TAB PO SCH (09:22)
[2017-05-18] MEDS: PANTOPRAZOLE SOD 40 MG DELAYED RELEASE TAB PO SCH (09:22)
[2017-05-18] MEDS: predniSONE 20 MG TAB PO SCH (09:22)
[2017-05-18] MEDS: MULTIVITAMIN TAB PO SCH (09:22)
[2017-05-18] MEDS: CLOTRIMAZOLE 10 MG TROCHE BUCCAL SCH ×2 (09:22→13:00)
[2017-05-18] MEDS: FERROUS SULFATE 325 MG (65 MG ELEMENTAL IRON) TAB PO SCH (09:22)
[2017-05-18] MEDS: SERTRALINE HCL 100 MG TAB PO SCH (09:22)
[2017-05-18] MEDS: BUDESONIDE-FORMOTEROL 160/4.5 MCG INHALER INH SCH (09:23)
[2017-05-18] MEDS: FLUTICASONE PROPIONATE 50 MCG/ACT 16 GM NASAL SPRAY EACH NARE SCH (09:23)
[2017-05-18] MEDS: SODIUM CHLORIDE 0.9% FLUSH 10 ML FLUSH IV FLUSH SCH (09:23)
[2017-05-18] MEDS ORDERED: PRED20 PO (10:14)
[2017-05-18] MEDS ORDERED: LEVA750T9 PO (10:14)
[2017-05-18] MEDS ORDERED: Nystatin Oint TOPICAL (10:14)
[2017-05-18] MEDS ORDERED: BENZ100 PO (10:14)
[2017-05-18] MEDS ORDERED: OXYGENDME NAS.CANULA (10:14)
[2017-05-18] MEDS ORDERED: BENZ1LOZ5 BUCCAL (10:14)
--- NOTE | 2017-05-18 10:21 | HHI.FF ---
Face to Face Verification Diagnosis: (1) COPD exacerbation Physical Therapy Order: Evaluate and Treat Home Health Nursing Order: Oxygen administration education I have seen patient Duane Aceves on 05/18/17. My clinical findings support the need for the requested home health care services because: Patient has SOB I certify that my clinical findings support that this patient is homebound because: Hx COPD- exertion dyspnea/weakness Lidia Abbott MD, R3 May 18, 2017 10:21
--- NOTE | 2017-05-18 10:23 | HHI.DCPOC ---
Discharge Care Plan Diagnosis: (1) COPD exacerbation Goals to Promote Your Health * To prevent worsening of your condition and complications * To maintain your health at the optimal level Directions to Meet Your Goals Take your medications as prescribed Follow your dietary instruction Follow activity as directed Keep your appointments as scheduled Take your immunizations and boosters as scheduled If your symptoms worsen call your PCP, if no PCP go to Urgent Care Center or Emergency Room Smoking is Dangerous to Your Health. Avoid second hand smoke Call the 24-hour hour crisis hotline for domestic abuse at Lidia Abbott MD, R3 May 18, 2017 10:23
--- NOTE | 2017-05-18 10:37 | HHI.FPPN ---
Subjective Remarks No acute events overnight. Vital signs unremarkable. This morning patient states that she feels well and is ready to go. Denies any shortness of breath but does endorse requiring oxygen with exertion. Patient has no acute concerns. (Lidia Abbott MD, R3) Objective Vitals Vital Signs Date Time Temp Pulse Resp B/P (MAP) Pulse Ox O2 Delivery O2 Flow Rate FiO2 05/18/17 09:01 3.00 05/18/17 08:08 95 Nasal Cannula 3.00 05/18/17 08:00 97.6 78 15 121/59 (79) 97 05/18/17 00:00 98.6 101 16 129/52 (77) 98 05/17/17 20:00 97.4 101 15 128/58 (81) 96 05/17/17 19:36 98 Nasal Cannula 2.00 05/17/17 16:00 97.7 77 17 119/68 (85) 99 05/17/17 12:00 97.4 79 17 117/65 (82) 98 I/O 05/17/17 05/17/17 05/17/17 05/18/17 05/18/17 05/18/17 07:00 15:00 23:00 07:00 15:00 23:00 Intake Total 680 ml 100 ml 360 ml 1100 ml Output Total 1025 ml Balance 680 ml 100 ml -665 ml 1100 ml Intake Oral 680 ml 360 ml 1000 ml IV Total 100 ml 100 ml Output Urine Total 1025 ml # Voids 2 1 # Bowel Movements 1 0 0 (Lidia Abbott MD, R3) Result Diagram: 05/17/1716 05/17/17 0713 Objective Remarks GEN: Well-developed, well-nourished patient. No acute distress. CV: Regular rate and rhythm without obvious murmurs LUNGS: Normal respiratory effort. Bibasilar crackles present (improved) but with good air movement. No accessory muscle use. GI: No distended EXT: No edema. No calf tenderness. NEURO/PSYCH: Awake, alert. Appropriate insight and judgment. Normal speech (Lidia Abbott MD, R3) A/P Assessment and Plan 66-year-old female with a past medical history that includes COPD, asthma, hypothyroidism, and bipolar depression who was admitted due to fatigue, SOB, productive cough. Patient was previously discharged from hospital 05/08/17 for pneumonia. She was discharged on Levaquin but did receive steroids while in the hospital. Discharge Planning Today * PT consulted: will need home health upon discharge * Will need home O2 sdw Dr. Yanez (Lidia Abbott MD, R3) Attending Attestation Medical rounds were performed with Dr Lidia Abbott, patient seen and examined, Agree with documentation, See Orders (Pradeep Yanez MD) Problem List: (1) COPD (chronic obstructive pulmonary disease) ICD Codes: J44.9 - COPD (chronic obstructive pulmonary disease) Status: Acute Plan: History significant for recent hospital admission with discharge from 05/08. At that time she was treated for pneumonia with Levaquin, aztreonam and steroids. On admission she was afebrile with no leukocytosis. Repeat CXR on 02/21 was unremarkable for acute disease. Suspect symptoms of continued cough, SOB, and fatigue are related to COPD exacerbation. -No leukocytosis, bands improved. -Blood cultures negative x2days -Legionella, strep pneumo negative -sputum culture normal pat -wean off O2 as tolerated -Failed walk test, will need home O2 -incentive spirometry Imaging: * CXR 05/15/17: patchy bilateral perihilar and basilar parenchymal opacities * CXR 05/16/17: No acute disease Medications: * Aztreonam 2g q8 (05/15-05/18) * Levaquin 750mg daily (05/15-05/23) * Prednisone 40mg daily * Albuterol and duonebs * Symbicort * Flonase (2) Pneumonia ICD Codes: J18.9 - Pneumonia Status: Acute Plan: Hx of recent PNA. Possible failed treatment on discharge after recent hospitalization. See more detailed plan above. (3) Vulval candidiasis ICD Codes: B37.3 - Candidiasis of vulva and vagina Status: Acute Plan: -Nystatin ointment every 12 hours x7days (4) Bipolar depression ICD Codes: F31.30 - Bipolar disorder, current episode depressed, mild or moderate severity, unspecified Status: Chronic Plan: -Continue sertraline 100 mg by mouth daily -continue home depakote 1500mg qHS -Continue Invega Sustenna injection on 56 mg IM every 28 days * pt unsure of when she is due for her next shot. Will hold until pt's immigration case worker has been contacted. (5) Fatigue ICD Codes: R53.83 - Other fatigue Status: Acute Plan: Likely related to recent hospitalization * valproic acid level appropriate (6) Anemia ICD Codes: D64.9 - Anemia, unspecified Status: Chronic Plan: Hx of anemia. Hgb current around her baseline of about 8-9. -Previous iron studies performed on 05/08/17 was mostly normal except for a TIBC of 188 (250-450) -Continue ferrous sulfate 325 mg by mouth daily (7) FEN/DVT PPX/GI PPX/Nursing Orders Plan: Fluids: Oral fluids only Electrolytes: Will monitor and replace as needed Nutrition: Heart-healthy diet DVT Prophylaxis: Lovenox 40mg subcutaneous daily GI Prophylaxis: Protonix 40mg PO daily (hx of GERD, plus steroid use) Chronic conditions: * Hypothyroidism: continue home synthroid 50mcg daily * HLD: continue home statin (Lidia Abbott MD, R3) Problem Qualifiers (1) Pneumonia: Qualified Codes: J18.9 - Pneumonia, unspecified organism Lidia Abbott MD, R3 May 18, 2017 10:37 Pradeep Yanez MD May 18, 2017 14:11
--- NOTE | 2017-05-18 14:30 | HHI.DS ---
Discharge Summary Admission Date May 15, 2017 at 15:11 Discharge Date: May 18, 2017 Admitting Diagnosis pneumonia, failed outpatient therapy (1) COPD (chronic obstructive pulmonary disease) Plan: History significant for recent hospital admission with discharge from 05/08. At that time she was treated for pneumonia with Levaquin, aztreonam and steroids. On admission she was afebrile with no leukocytosis. Repeat CXR on 02/21 was unremarkable for acute disease. Suspect symptoms of continued cough, SOB, and fatigue are related to COPD exacerbation. -No leukocytosis, bands improved. -Blood cultures negative x2days -Legionella, strep pneumo negative -sputum culture normal pat -wean off O2 as tolerated -Failed walk test, will need home O2 -incentive spirometry Imaging: * CXR 05/15/17: patchy bilateral perihilar and basilar parenchymal opacities * CXR 05/16/17: No acute disease Medications: * Aztreonam 2g q8 (05/15-05/18) * Levaquin 750mg daily (05/15-05/23) * Prednisone 40mg daily * Albuterol and duonebs * Symbicort * Flonase ICD Codes: J44.9 - COPD (chronic obstructive pulmonary disease) Status: Acute (2) Pneumonia Plan: Hx of recent PNA. Possible failed treatment on discharge after recent hospitalization. See more detailed plan above. ICD Codes: J18.9 - Pneumonia Status: Acute (3) Vulval candidiasis Plan: -Nystatin ointment every 12 hours x7days ICD Codes: B37.3 - Candidiasis of vulva and vagina Status: Acute (4) Bipolar depression Plan: -Continue sertraline 100 mg by mouth daily -continue home depakote 1500mg qHS -Continue Invega Sustenna injection on 56 mg IM every 28 days * pt unsure of when she is due for her next shot. Will hold until pt's wrapper caser has been contacted. ICD Codes: F31.30 - Bipolar disorder, current episode depressed, mild or moderate severity, unspecified Status: Chronic (5) Fatigue Plan: Likely related to recent hospitalization * valproic acid level appropriate ICD Codes: R53.83 - Other fatigue Status: Acute (6) Anemia Plan: Hx of anemia. Hgb current around her baseline of about 8-9. -Previous iron studies performed on 05/08/17 was mostly normal except for a TIBC of 188 (250-450) -Continue ferrous sulfate 325 mg by mouth daily ICD Codes: D64.9 - Anemia, unspecified Status: Chronic (7) FEN/DVT PPX/GI PPX/Nursing Orders Plan: Fluids: Oral fluids only Electrolytes: Will monitor and replace as needed Nutrition: Heart-healthy diet DVT Prophylaxis: Lovenox 40mg subcutaneous daily GI Prophylaxis: Protonix 40mg PO daily (hx of GERD, plus steroid use) Chronic conditions: * Hypothyroidism: continue home synthroid 50mcg daily * HLD: continue home statin Brief History Patient is a 66-year-old female with a past medical history that includes COPD, asthma, bipolar depression, and hypothyroidism, that presented to the [place] ED with chief complaints of productive cough, shortness of breath , and fatigue that have continued since her discharge from the hospital on where she was admitted for pneumonia. Patient states that she has not felt any better, in fact she has worsened since she left the hospital. Last night, she started feeling very short of breath which acutely worsened today. She states that her O2 saturation was 88% today, as was measured by her occupational therapist who comes to her home once a week. She denies fever but states that she has had chills and night sweats. She also has a sore throat, she lost her voice 3 weeks ago and has not regained it since then. Her cough is productive of brown, green, and yellow sputum. She has a few neighbors that have been sick but she does not really stay around them. She has no pets. Notably, the patient has a history of asthma and COPD, but she feels like this is a progression of pneumonia. Additionally, patient states that she has had a rash around her vaginal area that started during the last admission, but she did not report the rash to her medical team. CBC/BMP: 05/17/17 0716 05/17/17 0713 Significant Findings Laboratory Tests Test 05/16/17 06:56 05/17/17 07:13 05/17/17 07:16 Red Blood Count 2.58 MIL/MM3 (4.00-5.30) 2.50 MIL/MM3 (4.00-5.30) Hemoglobin 8.6 GM/DL (11.6-15.3) 8.2 GM/DL (11.6-15.3) Hematocrit 24.7 % (35.0-46.0) 23.6 % (35.0-46.0) Neutrophils (%) (Auto) 90.9 % (16.0-70.0) 75.0 % (16.0-70.0) Lymphocytes (%) (Auto) 7.8 % (9.0-44.0) Neutrophils # (Auto) 8.5 TH/MM3 (1.8-7.7) 8.2 TH/MM3 (1.8-7.7) Lymphocytes # (Auto) 0.7 TH/MM3 (1.0-4.8) Neutrophils % (Manual) 71 % (16-70) 82 % (16-70) Band Neutrophils % 20 % (0-6) Lymphocytes % 6 % (9-44) Neutrophils # (Manual) 8.7 TH/MM3 (1.8-7.7) 9.7 TH/MM3 (1.8-7.7) Metamyelocytes 2 % (0-1) Ovalocytes 1+ (NORMAL) Blood Urea Nitrogen 24 MG/DL (7-18) 23 MG/DL (7-18) Random Glucose 156 MG/DL (74-106) Estimat Glomerular Filtration Rate 63 ML/MIN (>89) 64 ML/MIN (>89) Red Cell Distribution Width 17.3 % (11.6-17.2) Myelocytes 1 % (0-0) Polychromasia 2.3 % (0.0-1.9) Imaging Last Impressions Chest X-Ray 05/16/17 0600 Signed Impressions: Service Date/Time: Tuesday, May 16, 2017 08:38 - CONCLUSION: No acute disease. Nj Briones MD PE at Discharge GEN: Well-developed, well-nourished patient. No acute distress. CV: Regular rate and rhythm without obvious murmurs LUNGS: Normal respiratory effort. Bibasilar crackles present (improved) but with good air movement. No accessory muscle use. GI: No distended EXT: No edema. No calf tenderness. NEURO/PSYCH: Awake, alert. Appropriate insight and judgment. Normal speech Hospital Course 66-year-old female with a past medical history that includes COPD, asthma, hypothyroidism, and bipolar depression who was admitted due to fatigue, SOB, productive cough. Patient was previously discharged from hospital 05/08/17 for pneumonia. Patient was readmitted on 05/15 for similar symptoms and treated for COPD exacerbation and pneumonia. She responded well to aztreonam and Levaquin as well as oral steroids. Patient did fail walk test and will require oxygen at home. Patient was discharged in stable condition with 5 more days of Levaquin and steroids. Pt Condition on Discharge: Stable Discharge Disposition: Disch w/ Home Health Serv Discharge Instructions DIET: Follow Instructions for: Heart Healthy Diet Activities you can perform: Regular-No Restrictions Follow up Referrals: PCP Follow-up - 1 Week with Blayne Us MD, R3 New Orders: Pulmonary Rehab - 1 Week New Medications: Oxygen (O2) (Oxygen (O2)) Device LITER JUAN DAVID.CANULA CONTINUOUS for Prevent Hypoxemia, #3 Oxygen Concentrator Portable Gaseous 3L/min via Nasal Canula Continuous For 99 months Benzocaine/Menthol (Cepacol Sore Throat Lozenge) 15 Mg-3.6 Mg Lozenge 1 LOZENGE BUCCAL Q2HR PRN for SORE THORAT, #30 LOZENGE Benzonatate (Tessalon Perles) 100 Mg Cap 100 MG PO TID PRN for COUGH, #30 CAP Levofloxacin (Levaquin) 750 Mg Tablet 750 MG PO Q24H, #5 TAB Start 05/19/17 Prednisone (Prednisone) 20 Mg Tab 40 MG PO DAILY, #10 TAB 2tabs a day for 5 days [Nystatin Oint] () 15 APPLIC/15 GM OINT 1 APPLIC TOPICAL Q12HR, #30 GM Continue use from 05/18-05/21 Continued Medications: Albuterol 8.5 GM Inh (Proair Hfa 8.5 GM Inh) 90 Mcg/Act Aer 2 PUFF INH Q4-6H PRN for SHORTNESS OF BREATH, #1 INHALER 3 Refills 108 mcg/actuation Albuterol Neb (Albuterol Neb) 2.5 Mg/0.5 Ml Neb 2.5 MG NEB Q6HR NEB, #1 BOX 2 Refills Note: The Albuterol Sulfate Inhalation Solution is concentrated and must be diluted. Read complete instructions carefully before using. Aspirin (Aspirin) 325 Mg Tab 325 MG PO DAILY, TAB 0 Refills Dextromethorphan Liq (Robitussin Childrens Cough Liq) 7.5 Mg/5 Ml Syp 7.5 MG PO Q6H PRN for COUGH, #1 BOTTLE Divalproex ER (Depakote ER) 500 Mg Marilee 1500 MG PO HS for Control Seizures, TAB 0 Refills Etodolac (Etodolac) 200 Mg Cap 200 MG PO TID for Pain Management, #90 CAP 3 Refills Take with food. Ferrous Sulfate (Ferosul) 325 Mg (65 Mg Iron) Tablet 325 MG PO DAILY, #30 Fluticasone Nasal [place] (Fluticasone Nasal [place]) 50 Mcg/Act Naspr 100 MCG EACH NARE BID for Allergy Management, #1 BOTTLE 0 Refills 50 mcg/spray Fluticasone-Salmeterol Inh (Advair Diskus Inh) 250-50 Mcg/Blist Aer 1 PUFF INH BID, #1 INHALER 3 Refills Rinse mouth after use. Levothyroxine (Levothyroxine) 50 Mcg Tab 50 MCG PO DAILY for Thyroid, #30 TAB 3 Refills Multiple Vitamin (Multiple Vitamin) 1 Tab 1 TAB PO DAILY for Nutritional Supplement, TAB 0 Refills Omeprazole (Omeprazole) 20 Mg Tab 40 MG PO DAILY, #30 TAB 0 Refills Paliperidone Palmitate Inj (Invega Sustenna Inj) 156 Mg/Ml Inj 156 MG IM Q28D for Schizophrenia, #1 VIAL 0 Refills Sertraline (Zoloft) 100 Mg Tab 100 MG PO DAILY, TAB 0 Refills Simvastatin (Simvastatin) 40 Mg Tab 40 MG PO HS for Cholesterol Management, TAB 0 Refills Tiotropium Inh (Spiriva Handihaler) 18 Mcg Cap 18 MCG INH DAILY for COPD, #30 CAP 0 Refills 1 capsule = 18 mcg Lidia Abbott MD, R3 May 18, 2017 14:30
[2017-05-18] MEDS ORDERED: LEVOFLOXACIN 750 MG TAB PO ONE (17:00)
== END 2017-05-18 16:58 | disposition home health service (06) | DRG 190 ==
LOC: NEDAMB 10:48 → NEDA 15:11 → N07A 18:51
PROVIDERS: ADMIT Family Medicine; ATTEND Family Medicine
DX: J44.1 Chronic obstructive pulmonary disease with (acute) exacerbation (principal); J18.9 Pneumonia, unspecified organism; Z99.81 Dependence on supplemental oxygen; M41.9 Scoliosis, unspecified; B37.3 Candidiasis of vulva and vagina; D64.9 Anemia, unspecified; F31.31 Bipolar disorder, current episode depressed, mild; E03.9 Hypothyroidism, unspecified; J44.0 Chronic obstructive pulmonary disease with (acute) lower respiratory infection; R00.0 Tachycardia, unspecified; K21.9 Gastro-esophageal reflux disease without esophagitis; E78.5 Hyperlipidemia, unspecified; F41.9 Anxiety disorder, unspecified; R53.83 Other fatigue; Z86.73 Personal history of transient ischemic attack (TIA), and cerebral infarction without residual deficits; I25.2 Old myocardial infarction; Z88.0 Allergy status to penicillin; Z87.891 Personal history of nicotine dependence; Z79.51 Long term (current) use of inhaled steroids
CPT/HCPCS: 71045; 71046; 80048; 80164; 81001; 82550; 83605; 83735; 84100; 84484; 85007; 85025; 85027; 85610; 85730; 87040; 87070; 87205; 87449; 93005; 94150; 94618; 94640; 94664; 94668; 96365; 96367; 96375; J0456; J0696; J1650; J2405; J2930; J7050; J7512

== ENCOUNTER 2017-06-08 15:12 | Emergency (ER) | payer MEDICARE, MEDICAID ==
[~2017-06-08] VITALS: Ht 170.2 cm; Wt 68.0 kg
[~2017-06-08 15:12] MED LIST changes: +BENZ100 PO; +BENZ1LOZ5 BUCCAL; +LEVA750T9 PO; -LEVO500T8 PO; +Nystatin Oint TOPICAL; +PRED20 PO
[2017-06-08 15:18] VITALS: BP 123/66; PULSE 89; RESP 20; TEMP 98.2; O2SAT 97
[2017-06-08 16:14] LABS: AUTOMATED NEUTROPHIL # 3.6 TH/MM3 (1.8-7.7); BASOPHIL % 0.2 % (0.0-2.0); EOSINOPHIL # 0.1 TH/MM3 (0-0.4); EOSINOPHIL % 1.3 % (0.0-4.0); HEMATOCRIT 34.1 % (35.0-46.0); HEMOGLOBIN 11.9 GM/DL (11.6-15.3); LYMPH % 32.5 % (9.0-44.0); LYMPHOCYTE # 1.9 TH/MM3 (1.0-4.8); MEAN CELL VOLUME 93.5 FL (80.0-100.0); MEAN CORPUSCULAR HEMOGLOBIN 32.6 PG (27.0-34.0); MEAN CORPUSCULAR HGB CONC 34.8 % (32.0-36.0); MEAN PLATELET VOLUME 7.9 FL (7.0-11.0); MONO % 5.4 % (0.0-8.0); MONOCYTE # 0.3 TH/MM3 (0-0.9); NEUT % 60.6 % (16.0-70.0); PLATELET COUNT 181 TH/MM3 (150-450); RED BLOOD COUNT 3.64 MIL/MM3 (4.00-5.30); RED CELL DISTRIBUTION WIDTH 18.9 % (11.6-17.2); WHITE BLOOD COUNT 5.9 TH/MM3 (4.0-11.0)
[2017-06-08 16:24] LABS: ALBUMIN 3.5 GM/DL (3.4-5.0); AST (GOT) 13 U/L (15-37); BICARBONATE 29.9 MEQ/L (21.0-32.0); BLOOD UREA NITROGEN 18 MG/DL (7-18); CALCIUM 9.6 MG/DL (8.5-10.1); CHLORIDE 105 MEQ/L (98-107); CREATININE 0.79 MG/DL (0.50-1.00); GLOMERULAR FILTRATION RATE 72 ML/MIN (>89); GLUCOSE,RANDOM 91 MG/DL (74-106); SODIUM (NA) 139 MEQ/L (136-145)
[2017-06-08 16:26] LABS: ALT (GPT) 12 U/L (10-53)
[2017-06-08 16:27] LABS: ALKALINE PHOSPHATASE 75 U/L (45-117); TOTAL BILIRUBIN ADULT 0.7 MG/DL (0.2-1.0); TOTAL PROTEIN 6.7 GM/DL (6.4-8.2)
--- NOTE | 2017-06-08 16:52 | RADRPT ---
EXAM DATE/TIME: 06/08/2017 16:30 [facility] COMPARISON: CT PULMONARY ANGIOGRAM, May 02, 2017, 18:08. CHEST SINGLE AP, May 15, 2017, 11:12. INDICATIONS : Cough. MEDICAL HISTORY : Cerebrovascular disease. Cardiovascular disease Chronic obstructive pulmonary disease.Hiatal hernia. SURGICAL HISTORY : Hysterectomy. ENCOUNTER: Initial ACUITY: 1 day PAIN SCORE: 0/10 LOCATION: Bilateral chest FINDINGS: A single frontal view the chest shows basilar mixed interstitial and intra-alveolar opacities. These have improved somewhat from the prior exam. No effusions. Heart is normal in size. Bony structures ar e unremarkable. CONCLUSION: Some improvement in the basilar infiltrates. Juvenal Andujar Jr., MD on June 08, 2017 at 16:42 Board Certified Radiologist. This report was verified electronically.
--- NOTE | 2017-06-08 17:05 | PD ---
HPI Chief Complaint: Syncope/Near-Syncope Time Seen by Provider: 16:09 Travel History International Travel<30 days: No Contact w/Intl Traveler<30days: No Traveled to known affect area: No History of Present Illness HPI 58-year-old female with history of bipolar disorder, seizure disorder, asthma, and questionable diabetes presents to the ED with a presyncopal episode. Says she has been feeling lightheaded for 2 days but was concerned because this occurred every time she walked, which is not normal for her. Say she has shortness of breath associated with this sensation. This sensation lasts until she lays down. Says she on 2LPM NC everyday. Patient denies chest pain, abdominal pain. She denies falls or head trauma. Denies leg pain or history of clots. She denies any cardiac history. PFSH Past Medical History Hx Anticoagulant Therapy: Yes (ASA) Anemia: Yes Asthma: Yes Blood Disorders: No Bipolar Disorder: Yes Anxiety: Yes Depression: Yes Cancer: No Cardiovascular Problems: Yes High Cholesterol: Yes Chemotherapy: No Chest Pain: Yes Congestive Heart Failure: No COPD: Yes Cerebrovascular Accident: Yes Diabetes: No Diminished Hearing: No Endocrine: Yes Gastrointestinal Disorders: Yes (IBS) GERD: Yes Genitourinary: No Headaches: Yes Hepatitis: Yes Hiatal Hernia: Yes Hypertension: No Immune Disorder: No Implanted Vascular Access Dvce: No Medical other: Yes (TIA; ARTHRITIS) Musculoskeletal: Yes (SCOLIOSIS) Neurologic: Yes Psychiatric: Yes (BIPOLAR) Reproductive: No Respiratory: Yes Immunizations Current: No Myocardial Infarction: Yes Pneumonia: Yes Radiation Therapy: No Thyroid Disease: Yes ?: Not Past Surgical History Gynecologic Surgery: Yes (BREAST TUMORS AND CYSTS BILATERAL REMOVED, OVARIAN CYSTS REMOVED) Hysterectomy: Yes Oral Surgery: Yes (TONSILECTOMY) Pacemaker: No Tonsillectomy: Yes Other Surgery: Yes (HYSTER,TUMORS,CYTS,lumpectomy) Family History Family Myocardial Infarction: Yes Social History Alcohol Use: No Tobacco Use: No Substance Use: No Allergies-Medications (Allergen,Severity, Reaction): Coded Allergies: Sulfa (Sulfonamide Antibiotics) (Unverified Allergy, Severe, Nausea/ Vomiting, 06/08/17) pt. denies amitriptyline (Unverified Allergy, Severe, Rash, 06/08/17) clopidogrel (Unverified Allergy, Severe, BRUISE, 06/08/17) haloperidol (Unverified Allergy, Severe, RASH, 06/08/17) penicillin G (Unverified Allergy, Severe, Swelling, 06/08/17) thiothixene (Unverified Allergy, Severe, Rash, 06/08/17) ragweed pollen (Unverified Allergy, Mild, Sneezing, 06/08/17) Uncoded Allergies: QUINIGLUTE (Allergy, Severe, 03/31/11) Reported Meds & Prescriptions Reported Meds & Active Scripts Active Prednisone 10 Mg Tab 10 Mg PO DAILY 7 Days Meclizine (Meclizine HCl) 25 Mg Tab 25 Mg PO TID PRN 5 Days Oxygen (O2) Device Liter JUAN DAVID.CANULA CONTINUOUS Oxygen Concentrator Portable Gaseous 3L/min via Nasal Canula Continuous For 99 months Proair Hfa 8.5 GM Inh (Albuterol Sulfate) 90 Mcg/Act Aer 2 Puff INH Q4-6H PRN 108 mcg/actuation Levothyroxine (Levothyroxine Sodium) 50 Mcg Tab 50 Mcg PO DAILY Reported Tramadol (Tramadol HCl) 50 Mg Tab 25 Mg PO Q8H Symbicort Inh (Budesonide/Formoterol Fumarate) 160-4.5 Mcg/Act Aero 2 Puff INH Q12HR Etodolac 300 Mg Capsule 300 Mg PO TID Depakote ER (Divalproex Sodium) 500 Mg Marilee 1,500 Mg PO HS Zoloft (Sertraline HCl) 100 Mg Tab 100 Mg PO DAILY Simvastatin 40 Mg Tab 40 Mg PO DAILY Multiple Vitamin 1 Tab 1 Tab PO DAILY Aspirin 325 Mg Tab 325 Mg PO DAILY Invega Sustenna Inj (Paliperidone Palmitate) 156 Mg/Ml Inj 156 Mg IM Q28D Omeprazole 20 Mg Tab 40 Mg PO DAILY Fluticasone Nasal [place] 50 Mcg/Act Naspr 2 [place] EACH NARE BID 50 mcg/spray Review of Systems Except as stated in HPI: all other systems reviewed are Neg Physical Exam Narrative GENERAL: WD WN in NAD, pleasant lady SKIN: Focused skin assessment warm/dry. HEAD: Atraumatic. Normocephalic. EYES: Pupils equal and round. No scleral icterus. No injection or drainage. ENT: No nasal bleeding or discharge. Mucous membranes pink and moist. NECK: Trachea midline. No JVD. No lymphadenopathy CARDIOVASCULAR: Regular rate and rhythm. No murmur appreciated. RESPIRATORY: No accessory muscle use. Breath sounds equal bilaterally. Diffuse wheezing GASTROINTESTINAL: Abdomen soft, non-tender, nondistended. MUSCULOSKELETAL: No obvious deformities. No clubbing. No cyanosis. No edema. Homans sign negative bilaterally NEUROLOGICAL: Awake and alert. No obvious cranial nerve deficits. Motor grossly within normal limits. Normal speech. PSYCHIATRIC: Appropriate mood and affect; insight and judgment normal. Data Data Last Documented VS Vital Signs Date Time Temp Pulse Resp B/P (MAP) Pulse Ox O2 Delivery O2 Flow Rate FiO2 06/08/17 20:41 06/08/17 19:38 98 16 98 Nasal Cannula 2.00 06/08/17 15:18 98.2 Orders Orders Sepsis Workup Initiated (06/08/17 ) Complete Blood Count With Diff (06/08/17 15:32) Comprehensive Metabolic Panel (06/08/17 15:32) Lactic Acid Sepsis Protocol (06/08/17 15:32) Blood Culture (06/08/17 15:32) Troponin I (06/08/17 16:23) Chest, Single Ap (06/08/17 ) Ct Brain W/O Iv Contrast(Rout) (06/08/17 ) Electrocardiogram (06/08/17 ) Orthostatic Vital Signs (06/08/17 16:23) Shoulder, Limited(2vws) (06/08/17 ) Albuterol-Ipratropium Neb (Duoneb Neb) (06/08/17 17:00) Urinalysis - C+S If Indicated (06/08/17 18:20) Meclizine (Antivert) (06/08/17 18:45) Ed Discharge Order (06/08/17 20:29) Labs Laboratory Tests Test 06/08/17 15:35 06/08/17 20:14 White Blood Count 5.9 TH/MM3 Red Blood Count 3.64 MIL/MM3 Hemoglobin 11.9 GM/DL Hematocrit 34.1 % Mean Corpuscular Volume 93.5 FL Mean Corpuscular Hemoglobin 32.6 PG Mean Corpuscular Hemoglobin Concent 34.8 % Red Cell Distribution Width 18.9 % Platelet Count 181 TH/MM3 Mean Platelet Volume 7.9 FL Neutrophils (%) (Auto) 60.6 % Lymphocytes (%) (Auto) 32.5 % Monocytes (%) (Auto) 5.4 % Eosinophils (%) (Auto) 1.3 % Basophils (%) (Auto) 0.2 % Neutrophils # (Auto) 3.6 TH/MM3 Lymphocytes # (Auto) 1.9 TH/MM3 Monocytes # (Auto) 0.3 TH/MM3 Eosinophils # (Auto) 0.1 TH/MM3 Basophils # (Auto) 0.0 TH/MM3 CBC Comment DIFF FINAL Differential Comment Blood Urea Nitrogen 18 MG/DL Creatinine 0.79 MG/DL Random Glucose 91 MG/DL Total Protein 6.7 GM/DL Albumin 3.5 GM/DL Calcium Level 9.6 MG/DL Alkaline Phosphatase 75 U/L Aspartate Amino Transf (AST/SGOT) 13 U/L Alanine Aminotransferase (ALT/SGPT) 12 U/L Total Bilirubin 0.7 MG/DL Sodium Level 139 MEQ/L Potassium Level 4.5 MEQ/L Chloride Level 105 MEQ/L Carbon Dioxide Level 29.9 MEQ/L Anion Gap 4 MEQ/L Estimat Glomerular Filtration Rate 72 ML/MIN Lactic Acid Level 0.7 mmol/L Troponin I LESS THAN 0.02 NG/ML Urine Color YELLOW Urine Turbidity CLEAR Urine pH 5.0 Urine Specific [place] 1.005 Urine Protein NEG mg/dL Urine Glucose (UA) NEG mg/dL Urine Ketones NEG mg/dL Urine Occult Blood NEG Urine Nitrite NEG Urine Bilirubin SMALL Urine Urobilinogen LESS THAN 2.0 MG/DL Urine Leukocyte Esterase NEG Urine RBC 1 /hpf Urine WBC LESS THAN 1 /hpf Urine Squamous Epithelial Cells <1 /hpf Microscopic Urinalysis Comment CULT NOT INDICATED MDM Medical Decision Making Medical Screen Exam Complete: Yes Emergency Medical Condition: Yes Differential Diagnosis COPD exacerbation, asthma exacerbation, pneumonia, upper respiratory infection Narrative Course 58-year-old female with history of bipolar disorder, seizure disorder, asthma, and questionable diabetes presents to the ED with a presyncopal episode. Says she has been feeling lightheaded for 2 days but was concerned because this occurred every time she walked, which is not normal for her. Say she has shortness of breath associated with this sensation. This sensation lasts until she lays down. Says she on 2LPM NC everyday. Patient denies chest pain, abdominal pain. She denies falls or head trauma. Denies leg pain or history of clots. She denies any cardiac history. Vital signs. EKG demonstrates sinus rhythm without STEMI pattern. Orthostatic vital signs are negative. DuoNeb 3 administered with great improvement in her respiratory symptoms. ( suspect that is not using her nebs as prescribed) CBC & BMP Diagram 06/08/17 15:35 Total Protein 6.7, Albumin 3.5, Calcium Level 9.6, Alkaline Phosphatase 75, Aspartate Amino Transf (AST/SGOT) 13 L, Alanine Aminotransferase (ALT/SGPT) 12, Total Bilirubin 0.7 There is no evidence of sepsis today. Patient states that she does feel better and suspects that her symptoms are related to her chronic vertigo. Patient lives alone in an apartment. States she has Occupational Therapy that visits her once a week and she has friends near her to assist with her ADLs as necessary. Pt will be discharged with meclizine for vertigo and prednisone for her COPD. She understands the importance of standing slowly to prevent falls. I explained the importance of preventing falls which could result in fractures, especially with prednisone. Pt did not want to wait for UA results. Pt understands risks v benefits. UA is negative. She understands that she may return at any time to the ED for evaluation. I recommend she follow up with her PCP and cash application representative as well. Diagnosis Primary Impression: Vertigo Additional Impression: COPD exacerbation Referrals: Primary Care Physician Additional Instructions: When you get out of bed, get up slowly to avoid your vertigo symptoms. If you do feel lightheaded or dizzy sit down or lay down until the symptoms subside. Follow-up with primary care physician this week. Take meclizine as needed for your dizziness and vertigo. If your symptoms persist or worsen return to the emergency department immediately. Use your walker each and every time you get out of bed. Scripts Prednisone (Prednisone) 10 Mg Tab 10 MG PO DAILY for 7 Days, #7 TAB 0 Refills Prov: Eli Castillo 06/08/17 Meclizine (Meclizine) 25 Mg Tab 25 MG PO TID Y for VERTIGO for 5 Days, TAB 0 Refills Prov: Eli Castillo 06/08/17 Disposition: 01 DISCHARGE HOME Condition: Stable Eli Castillo Jun 08, 2017 17:05
[2017-06-08] MEDS: RESP: ALBUTEROL 2.5 MG/IPRATROPIUM 0.5 MG NEB (SCH) INH (17:08)
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
--- NOTE | 2017-06-08 17:52 | RADRPT ---
EXAM DATE/TIME: 06/08/2017 17:25 [facility] COMPARISON: CT BRAIN W/O CONTRAST, March 13, 2016, 14:04. INDICATIONS : Syncope RADIATION DOSE: 56.35 CTDIvol (mGy) MEDICAL HISTORY : Cerebrovascular disease. Chronic obstructive pulmonary disease. SURGICAL HISTORY : Hysterectomy. ENCOUNTER: Initial ACUITY: 1 day PAIN SCALE: 0/10 LOCATION: cranial TECHNIQUE: Multiple contiguous axial images were obtained of the head. Using automated exposure control and adj ustment of the mA and/or kV according to patient size, radiation dose was kept as low as reasonably a chievable to obtain optimal diagnostic quality images. DICOM format image data is available electro nically for review and comparison. FINDINGS: CEREBRUM: Atrophy. Chronic lacunar infarction involving left basal ganglia is unchanged. The ventricles are nor mal for age. No evidence of midline shift, mass lesion, hemorrhage or acute infarction. No extra-ax ial fluid collections are seen. POSTERIOR FOSSA: The cerebellum and brainstem are intact. The 4th ventricle is midline. The cerebellopontine angle i s unremarkable. EXTRACRANIAL: The visualized portion of the orbits is intact. Mucosal thickening without air-fluid levels involving the sphenoid sinuses bilaterally. SKULL: The calvaria is intact. No evidence of skull fracture. CONCLUSION: No acute disease. Juvenal Andujar Jr., MD on June 08, 2017 at 17:47 Board Certified Radiologist. This report was verified electronically.
[2017-06-08 18:09] VITALS: BP_SYST 120; BP_SYST 124; BP_SYST 128; BP_DIAS 57; BP_DIAS 58; BP_DIAS 61
[2017-06-08] MEDS ORDERED: SYMB160A INH (18:14)
[2017-06-08] MEDS ORDERED: ETOD300 PO (18:14)
[2017-06-08] MEDS ORDERED: TRAM50TA PO (18:14)
[2017-06-08] MEDS ORDERED: MECLIZINE HCL 25 MG TAB PO ONE (18:45)
[2017-06-08 19:38] VITALS: BP 114/56; PULSE 98; RESP 16; O2SAT 98
[2017-06-08] MEDS ORDERED: MECL-62 PO (19:51)
[2017-06-08] MEDS ORDERED: PRED10 PO (20:05)
[2017-06-08 20:26] LABS: BILIRUBIN, URINE SMALL (NEG); BLOOD, URINE NEG (NEG); GLUCOSE,URINE NEG (NEG); KETONE, URINE NEG (NEG); NITRITE,URINE NEG (NEG); SQUAMOUS EPITHELIAL CELL URINE <1 /hpf (0-5); URINE COLOR YELLOW (YELLW/STRAW); URINE LEUKOCYTE ESTERASE NEG (NEG)
--- NOTE | 2017-06-09 15:37 | EKG ---
Date Performed: 06/08/2017 Time Performed: 17:45:53 PTAGE: 66 years EKG: Sinus rhythm WITH SHORT MN INTERVAL WITH OCCASIONAL VENTRICULAR PREMATURE COMPLEXES BORDERLINE ECG Compared to PREVIOUS TRACING , PVCs are new, otherwise no significant change. PREVIOUS TRACIN05/15 13.40 DOCTOR: Oscar Rea Interpretating Date/Time 06/09/2017 15:35:46
== END 2017-06-08 20:47 | disposition home or self-care (01) ==
LOC: NEPC 15:12
DX: R42 Dizziness and giddiness (principal); J44.1 Chronic obstructive pulmonary disease with (acute) exacerbation; R94.31 Abnormal electrocardiogram [ECG] [EKG]; E78.00 Pure hypercholesterolemia, unspecified; I25.2 Old myocardial infarction; F31.9 Bipolar disorder, unspecified; Z86.73 Personal history of transient ischemic attack (TIA), and cerebral infarction without residual deficits
CPT/HCPCS: 70450; 71045; 73030; 80053; 81001; 83605; 84484; 85025; 87040; 93005; 94640; 94664; 99285